=== PATIENT | female | born 1950 | race Caucasian/White ===

== ENCOUNTER 2023-12-20 11:28 | Inpatient (IN) | payer OTHER, SELFPAY ==
[2023-12-20] VITALS (7 sets, daily range): BP systolic 94–156; BP diastolic 56–73; BMI 31.5
--- NOTE | 2023-12-20 13:01 | HPS.HSE ---
Family Physician
-
Family Physician: Ashley Monsalve
Chief Complaint
-
infected pacer
History of Present Illness
73-year-old with past medical history for hyperlipidemia, diabetes, hypertension CAD, [place], V. tach due to us with infected pacer pocket. Patient had initial defibrillator placed in 2002. Her defibrillator battery was changed on . The
following day, she noted pus on her incision. Patient got admitted to [facility] since Tuesday due to worsening erythema, drainage and tenderness. Blood culture with no growth at [place]. Wound culture grew Proteus. Patient was
evaluated by infectious disease. Patient was getting vancomycin and Zosyn. Patient needed generator lead extraction for which patient got transferred to [facility] in hospital. Patient denied any fever, chills, headache, dizziness, syncopal episode.
Patient denied chest pain or short of breath. Patient denied abdominal pain, nausea, vomiting, diarrhea. Patient denied dysuria hematuria.
Medical History
Past Medical History
Past Medical History: Reports Other
Additional Past Medical History:
Ulcerative colitis
Bulging disc
Hyperlipidemia
Type 2 diabetes
Hypertension
CAD/[place]
Ventricular tachycardia
Past Surgical History: Reports Other
Additional Past Surgical History:
Defibrillator in place
Cardiac stent
Cataract surgery
Tonsillectomy
[place] tooth extraction
Right shoulder replacement
Cholecystectomy
Bowel resection
Hysterectomy
Social History
Tobacco: Non-smoker
Alcohol: None
Family History
Family History: Not pertinent
Allergies / Home Medications
Allergies reflects when Allergies were last updated in [employer].
Home Medications with original date entered in [employer]
Allergy/Medication List:
Allergies
Allergy/AdvReac Type Severity Reaction Status Date / Time
levofloxacin [From Levaquin] Allergy Tongue Verified 12/20/23 11:59
Swelling
Home Medications
atorvastatin 80 mg tablet 80 mg PO DAILY 12/20/23
carvedilol 12.5 mg tablet (Coreg) 12.5 mg PO BID 12/20/23
clopidogrel 75 mg tablet (Plavix) 75 mg PO DAILY 12/20/23
duloxetine 30 mg capsule,delayed release 30 mg PO DAILY 12/20/23
empagliflozin 25 mg tablet (Jardiance) 25 mg PO DAILY 12/20/23
famotidine 20 mg tablet 20 mg PO DAILY 12/20/23
hydralazine 25 mg tablet 25 mg PO BID 12/20/23
levothyroxine 175 mcg tablet (Synthroid) 175 mcg PO DAILY 12/20/23
metformin 1,000 mg tablet 1,000 mg PO BID 12/20/23
Review of Systems
-
Constitutional: Reports No Symptoms
EENT: Reports No Symptoms
Respiratory: Reports No Symptoms
Cardiac: Reports No Symptoms
Abdomen/GI: Reports No Symptoms
: Reports No Symptoms
Musculoskeletal: Reports No Symptoms
Skin: Reports Other (Incision with erythema)
Neurological: Reports No Symptoms
Endocrine: Reports No Symptoms
Hematologic/Lymphatic: Reports No Symptoms
Psych: Reports No Symptoms
Physical Exam
Vital Signs
Vital Signs
Temp Pulse Resp BP Pulse Ox
97.5 F 74 16 94/56 93
12/20/23 11:32 12/20/23 12:30 12/20/23 11:32 12/20/23 11:37 12/20/23 11:32
Physical Exam
General: Well Developed, Well Nourished and No Apparent Distress
HEENT: NormoCephalic, Moist mucous membranes and Atraumatic
Respiratory: Clear
Cardiac: S1/S2 and Regular Rhythm; No Murmur or Rub
GI: Soft, Non Tender, Non Distended and Normal Bowel Sounds; No Organomegaly
Rectal: Deferred by Provider
Musculoskeletal: No Clubbing, No Cyanosis and No Edema
Skin: Rash and Other (Left-sided incision red)
Neuro: AO x 3 and Nonfocal/grossly intact
Psych: Calm
Impression/Plan
-
# Infected pacer pocket
-For possible washout today
-Patient will will need lead extraction
-IV Ancef once prior to procedure
-Antibiotics deferred to ID
-ID/cardiology consulted
-Tylenol as needed for pain and fever
# History of CAD/[place]
-Status post cardiac stent
-Hold Plavix
# Type 2 diabetes
-Jardiance continued
-Hold metformin
-Sliding scale
# Depression/anxiety
-Duloxetine continued
# Hyperlipidemia
-Statin continued
# Essential hypertension
-coreg continued
-Hydralazine continued wit hold parameters
# Hypothyroidism
-Synthroid continued
# GERD
-PPI continued
# DVT prophylaxis
-SCD
# CODE STATUS
-Full code
--- NOTE | 2023-12-20 13:30 | PTCARENOTE ---
Assumed care of pt upon tsf from [facility]. Pt arrives with ambulance squad. VSS, CM shows NSR 70-80's with occ PVC's, POX 93% on RA. Pt is alert, and Ox3. Left sided chest incision appears swollen and pink. Awaiting futher orders.
--- NOTE | 2023-12-20 13:36 | W.PN.UPDATE ---
Update Note
Progress Note Update
I saw and examined the patient.
The CUSTOMER SERVICE CONSULTANT or PA's note was reviewed and I agree with the note.
Comment: 73-year-old female transferred here from [facility] for ICD pocket infection requiring extraction. Currently denies chest pain or shortness of breath.
94/56, 74, 16, 97.5 �F, 93% RA
NAD, awake and alert
RRR, normal S1/S2
CTAB
CN2-12 intact
Infected ICD pocket:
-for extraction today as per pt
-cont Vanco/Zosyn for now
-WCx at OSH with Proteus, BCxs NG
-ID c/s
-cards to see
--- NOTE | 2023-12-20 14:15 | PTCARENOTE ---
Orders received. Pt is a very hard stick, multiple attempts made which were unsuccessful. Pt taken to [facility] for further treatment.
--- NOTE | 2023-12-20 14:27 | CON.ID ---
Consultation
-
Date/Time Consultation Requested: 12/20/2023 1253
Date/Time Consultation Performed: 12/20/2023 1430
Requesting Provider: Dr. Chang Bashir
Performing Provider: Dr. Ann Euceda
Reason for Consultation: Infected ICD pocket
Chief Complaint / Past History
Chief Complaint
Infected ICD
History of Present Illness
Outside medical records reviewed. 73 year old female with history of diabetes mellitus, CAD, ICM, ICD placement who had ICD/generator battery replacement on 11/24/23. On December 14, she noted the ICD site was red and itching. The next day pus started
draining. She was admitted to [facility] on December 15. CT chest showed left chest wall battery generator with fluid and air compatible with abscess. She was started on vancomycin and Zosyn. Blood cultures x 2 were negative. Wound culture grew
Proteus. ID narrowed the Zosyn to ceftriaxone. Patient was then transferred to [facility] today and underwent ICD generator extraction. She received cefazolin preop. She just returned from surgery. Denies fever or chills. No other
symptoms.
Past History
Additional Past Medical History:
Diabetes mellitus type 2
Hypertension
CAD status post stent
Ischemic cardiomyopathy status post AICD placement (2002)
Ulcerative colitis on mesalamine
Hypothyroidism
Asthma
PMR
Herniated disc
Depression/anxiety
Perforated diverticulitis status post partial bowel resection 2004
Left knee replacement 2011
Right shoulder replacement 2012
Cholecystectomy
Hysterectomy
Allergy History:
levofloxacin [From Levaquin] Allergy (Verified 12/20/23 11:59)
Tongue Swelling
Medications Reviewed: Yes
Current Antibiotics:
Cefazolin x 1
Vanco/Zosyn at outside hospital
Social History
Tobacco: Former Smoker
Alcohol: None
Drug: None
Personal:
Family History
Family History: Not Pertinent
Review of Systems
Review of Systems
General: Negative Fever, Chills or Change in Appetite
Respiratory: Negative Dyspnea or Cough
Gasteroenterology: Negative Nausea or Vomiting
Genital / Urological: Negative Dysuria or Flank Pain
Neurological: Negative Headache or Dizziness
All systems: All other systems were reviewed and were negative
Vital Signs
Temp Pulse Resp BP Pulse Ox
97.5 F 74 16 94/56 93
12/20/23 11:32 12/20/23 12:30 12/20/23 11:32 12/20/23 11:37 12/20/23 11:32
Physical Exam
Physical Exam
Constitutional: No Acute Distress
Cardiovascular: Regular Rate and S1/S2
Pulmonary: Clear
Gastrointestinal: Soft, Non Tender and Non Distended
Extremities: Negative Edema
Wound: Other (left chest wall - post-op dressing in place)
Microbiology Results
Micro:
12/20/23 13:09 MRSA Screen - Pending
Nose
Assessment / Plan
# ICD pocket SSTI after recent generator change (11/24/23)
- Outside blood cx's x 2 neg (12/15)
-Outside wound cx Proteus mirabilis (I) cefazolin; (S) ampicillin, ceftriaxone, cefepime, zosyn, cipro, t/sulfa
- 12/20/23 s/p ICD generator extraction, placement of new generator at separate site. Leads are retained.
- Await OR cx's
- Start cefepime pending OR cx result
- Place midline.
--- NOTE | 2023-12-20 16:02 | CON.CAR ---
Consultation
Consultation Request
Date/Time Consultation Requested: 12/20/23
Date/Time Consultation Performed: 12/20/23
Reason for Consultation: Pocket infection
Medical History
-
Chief Complaint: Pocket infection
History of Present Illness:
73-year-old woman with chronic heart failure status post single-chamber ICD 2002 ([employer], status post generator change in 2010 and secondary to change in November 2023 (Dr. Ro at [facility]), coronary disease status post PCI with CHERELLE to LAD in
February 2016, PCI to RCA with stent in December 2016, inflammatory bowel disease (ulcerative colitis), PMR, history of DVT after cholecystectomy, asthma, hypothyroidism, capsulitis, history of partial bowel resection with perforated diverticulitis in 2004
who presented with her pocket infection and pus coming from the pocket.
Patient had her generator changed in November 24, 2023 that went uneventful. Unfortunately she started having erythema in the pocket incision and started expressing pus from the incision. Patient was treated with Zosyn and vancomycin. Patient
reported that the pus coming out of the pocket improved and she was discharged home. She was continued to have erythema and swelling from the pocket and was admitted again on 12/17/2023 with pocket infection. With continued infection of the pocket,
patient was transferred to us for pocket revision, incision and drainage and debridement with relocation of the pocket. Given her infected pocket, she most likely need an extraction and was sent was for extraction of her system as well.
Patient is not dependent. Currently ICD was interrogated and is at VVI 50 and 3 therapy zones identified.
Patient herself is reporting swelling and pain in the incision site. She is unhappy with the way incision looks.
Past Medical History
Past Medical History: Asthma, CAD, CHF, HTN, Hypercholesterolemia, NIDDM, Renal Failure (CKD) and Other (Ulcerative colitis, DJD, PMR, DVT after cholecystectomy, lumbar degenerative disc disease,)
Past Surgical History: Cardiac (Drug-eluting stent to LAD February 2016 at [facility], CHERELLE to RCA at [facility] December 2016, AICD in 2002, generator change 2010 at [facility], generator change at [facility] in November 2023.), Gynecological
(D&C in 1971, 1979 and hysterectomy 1988,) and Other ( Partial bowel resection with perforated diverticulitis in 2004, cholecystectomy with 2 herniorrhaphies in December 2017)
Social History
Tobacco: Former Smoker (1 pack/day for 30 years quit 2002)
Alcohol: None
Family History
Family History: Reviewed & Not Pertinent
Allergies / Home Medications
Allergy/AdvReac Type Severity Reaction Status Date / Time
levofloxacin [From Levaquin] Allergy Tongue Verified 12/20/23 11:59
Swelling
�Medication �Instructions �Recorded �Confirmed �Type
atorvastatin 80 mg tablet 80 mg PO DAILY 12/20/23 12/20/23 History
carvedilol 12.5 mg tablet (Coreg) 12.5 mg PO BID 12/20/23 12/20/23 History
clopidogrel 75 mg tablet (Plavix) 75 mg PO DAILY 12/20/23 12/20/23 History
duloxetine 30 mg capsule,delayed 30 mg PO DAILY 12/20/23 12/20/23 History
release
empagliflozin 25 mg tablet 25 mg PO DAILY 12/20/23 12/20/23 History
(Jardiance)
famotidine 20 mg tablet 20 mg PO DAILY 12/20/23 12/20/23 History
hydralazine 25 mg tablet 25 mg PO BID 12/20/23 12/20/23 History
levothyroxine 175 mcg tablet 175 mcg PO DAILY 12/20/23 12/20/23 History
(Synthroid)
metformin 1,000 mg tablet 1,000 mg PO BID 12/20/23 12/20/23 History
Review of Systems
-
All other systems: Negative unless noted
Physical Exam
Vital Signs
Temp Pulse Resp BP Pulse Ox
97.5 F 74 16 94/56 93
12/20/23 11:32 12/20/23 12:30 12/20/23 11:32 12/20/23 11:37 12/20/23 11:32
Physical Exam
General: Well Developed, Well Nourished, No Apparent Distress and Comfortable
HEENT: Normocephalic and Moist Mucous Membranes
Respiratory: Clear and Non Labored Respirations
Cardiac: S1/S2 and Regular Rhythm; Negative Peripheral Edema
GI: Soft, Non Tender, Non Distended and Normal Bowel Sounds
Musculoskeletal: No Clubbing, No Cyanosis and No Edema
Skin: Warm and Other (ICD pocket is inflamed and erythematous. An area of dehiscence noted in the incision with expression of pus.)
Neuro: Awake, Alert, Oriented and AO x 3
Psych: Calm
Impression / Plan
-
73-year-old woman with chronic heart failure status post single-chamber ICD 2002 ([employer], status post generator change in 2010 and secondary to change in November 2023 (Dr. Ro at [facility]), coronary disease status post PCI with CHERELLE to LAD in
February 2016, PCI to RCA with stent in December 2016, inflammatory bowel disease (ulcerative colitis), PMR, history of DVT after cholecystectomy, asthma, hypothyroidism, capsulitis, history of partial bowel resection with perforated diverticulitis in 2004
who presented with her pocket infection and pus coming from the pocket.
Pocket infection
-Treated with Zosyn and vancomycin.
-Pus can be expressed from the pocket
-Wound dehiscence noted.
-Treat with antibiotics likely with vancomycin and Ancef
-Consult infectious disease
-Plan for pocket revision, debridement, washout, relocation of the pocket after maximal attempt of sterilization of the wire and generator
-Procedure explained in detail to the patient. Consent obtained
-Given patient's significant comorbidities, we will try to use conservative measures to avoid lead extraction
-Likely 4 to 6 weeks of antibiotics. Potentially Keflex versus clindamycin (patient is allergic to Bactrim and sulfa drugs)
-Obtain cultures from the pocket.
-If fever, leukocytosis noted will obtain systemic blood cultures as well.
Heart failure
-Primary prevention ICD in place
-Obtain echocardiogram.
-Look for any obvious vegetations.
-Last echo at our hospital 09/01/22: LVEF 30%, moderate MR
-Currently on Coreg, Jardiance, hydralazine,
Coronary artery disease
-On Plavix
Data Reviewed
-
EKG: Tracing Personally Visualized and interpreted
Radiology: Report Reviewed by me
CT Scan: Report Reviewed by me
Labs: Labs Reviewed by me
Old Records: Reviewed
Critical Care Time (in minutes): 35
[2023-12-20 16:44] LABS: Hematocrit 36.5 % (37.0-47.0); Hemoglobin 11.8 g/dL (12.0-16.0); Mean Corp Hgb Conc. 32.3 g/dL (33.0-37.0); Mean Corpuscular Hgb 33.1 pg (27.0-31.0); Mean Corpuscular Volume 102.5 fL (81.0-99.0); Mean Platelet Volume 9.7 fL (7.4-10.4); Platelet Count 158 10^3/uL (130-400); Red Blood Cell Count 3.56 10^6/uL (4.20-5.40); Red Cell Dist. Width 13.7 % (11.5-14.5); White Blood Cell Count 6.4 10^3/uL (4.8-10.8)
[2023-12-20 16:47] LABS: Glucose - Point of Care 130 mg/dl (70-99)
--- NOTE | 2023-12-20 16:48 | ITS.CL.PN ---
Senior Audit Manager - Procedure Note
Procedure
Procedure Note:
Pocket Revision, debridement and relocation of Implantable Cardioverter Defibrillator:
Ms. Ro is a 73 yrs old woman with chronic systolic heart failure s/p single chamber ICD placement ([employer] � 2002) s/p gen change in 2010 and 2023 with coronary artery disease, cardiomyopathy, diabetes, moderate MR with ejection
fraction 30-35% who was recently hospitalized with abscess at the ICD pocket site.
Indications: Abscess at ICD site.
Date of the Procedure: 12/20/23
Pre-Operative Diagnosis: chronic systolic heart failure with pocket infection
Post-Operative Diagnosis: chronic systolic heart failure with pocket infection
Procedure Performed: Pocket revision, relocation and washout of the previous pocket
Performing Physician:
Gokul Costa MD
Anesthesia:
See anesthesia records
Detailed Description of the Procedure:
The patient was identified using hospital identification and informed consent obtained for the procedure. The risks were explained including, but not limited to: Bleeding, infection, arrhythmia, stroke, vascular/cardiac/lung puncture, surgery,
pacemaker dependency/device malfunction. All questions were answered.
The patient was brought to the electrophysiology laboratory in stable condition in fasting state. Continuous electrocardiographic and hemodynamic monitoring was initiated. The initial rhythm was sinus rhythm.
The Device was interrogated. The tachy therapies were turned off and remained off throughout the case. The therapies were turned on at the end of the case.
The procedure site was meticulously prepared with surgical scrub and allowed to dry with no pooling. Sterile draping was applied to cover the procedure site. The image intensifier was draped with sterile bag and positioned over the patient.
The left infraclavicular region was prepped and draped in the usual sterile fashion. Local anesthesia was administered subcutaneously using 1% lidocaine / Bupivacaine. Using the prior incision, the skin was incised again and the debris and the prior
sutures were removed. There were skin breakdown on the incision site. The abscess in the superficial skin was incised and angelo pus was noted. The area was drained and the superficial cultures obtained.
The incision was made deeper and the angelo pus was noted coming from the pocket. The aerobic and anaerobic cultures were again obtained from the deep pocket area.
There was frail tissue infected and was oozing blood and pus. The generator was removed from the pocket and the deep pocket and generator was also cultures.
The device and the leads were cleaned with Betadine solution and rubbed to the foam and let dry. The deep pocket and the tissue around the leads were also cleaned with Betadine. A Betadine soaked Kerlex was packed for debridement in the pocket and
later removed to clean the pocket.
A diluted hydrogen peroxide solution was poured into the pocket and the surrounding infected tissues and the device generator and the leads were rubbed cleaned and the foam was cleaned with towels and the wound was then rinsed with antibiotics
solution.
All the infected material was removed.
Once the pocket was cleaned, another pocket was created after local anesthesia. The new pocket was more medial to the previous pocket. The new pocket was irrigated and washed with antibiotics solution. The cleaned generator and the wire was placed
in the new pocket. The Pocket was closed using 2-0 V Loc suture to separate it from the infected pocket.
There was oozing of pus and blood in the pocket with fragile surrounding tissue. A KATHY drain was placed in th pocket and the skin was closed using a 2-0 V loc suture.
Procedure End:
The procedure was tolerated well. A pressure bandage was applied to the incision area.
Estimated Blood loss:
15 cc
Specimens Removed:
Cultures obtained. Infected pocket with angelo pus in the superficial skin communicating into the deep pocket. .
Urine output:
None
Packs / Drains/ Tubes:
None
Instrument / Sponge Count Correct:
Yes
Complications of the Procedure:
None
Condition of Patient at Time of Transfer:
Hemodynamically stable with no neurological or vascular compromise.
Summary:
s/p pocket revision and incision and drainage with debridement with angelo infection of the ICD pocket, relocation of the pocket to a new site.
Results/Recommendations:
-��������� Antibiotics
-��������� Infection disease consult
-��������� KATHY drain to keep at least a week.
-��������� Replace / empty the bulb of drain if becomes full.
-���������
Gokul Costa MD
Electrophysiology
[2023-12-20 16:57] LABS: ALT (SGPT) 13 U/L (0-35); AST (SGOT) 28 U/L (14-36); Albumin 3.5 g/dl (3.5-5.0); Alkaline Phosphatase 99 U/L (38-126); Blood Urea Nitrogen 12 mg/dl (7-17); Calcium 9.2 mg/dl (8.4-10.2); Carbon Dioxide 24 mmol/L (22-30); Chloride 106 mmol/L (98-107); Estimated Creatinine Clearance 55 ml/min; Glucose 112 mg/dl (70-99); Potassium 4.2 mmol/L (3.5-5.1); Sodium 139 mmol/L (135-145); Total Bilirubin 0.4 mg/dl (0.2-1.3); Total Protein 6.5 g/dl (6.3-8.2); eGFR > 60.00
[2023-12-20] MEDS: NOVOLOG FLEXPEN-LOW RESISTANCE SC (17:10)
[2023-12-20 17:50] LABS: Hepatitis C Antibody Negative (Negative)
--- NOTE | 2023-12-20 17:57 | PTCARENOTE ---
Assumed care of pt upon tsf from [facility] post left pocket revision, debridement and relocation of ICD. Pt arrives awake but sleepy. Large Tegaderm dsg to left chest site with J-P extending from incision. Mid-line inserted as ordered by IV team. Pt
denies any pain or discomfort at this time.
[2023-12-20] MEDS: APRESOLINE 25 MG PO (20:39)
[2023-12-20] MEDS: COREG 12.5 MG PO (20:39)
--- NOTE | 2023-12-20 21:17 | PTCARENOTE ---
During assessment of pt's post-op KATHY drain at the L chest wall incision site, KATHY drain noted to not staying compressed or holding suction. Original post op dressing w/serosanguineous drainage present under the silk tape & gauze pressure dressing.
10mLs of sanguineous drainage removed from drain & this RN attempted to recompress x2. CT Surgery PA, Ed Roderick notified & in to see pt. Dressing & insertion site assessed. KATHY bulb replaced bt PA & drain continues to not hold compression. Dressing
and tape reinforced. Pt w/no c/o pain or discomfort at the site. Plan of care ongoing.
[2023-12-20 21:45] LABS: Glucose - Point of Care 246 mg/dl (70-99)
[2023-12-20] MEDS: MAXIPIME 2000 MG IV (22:42)
[2023-12-20] MEDS: FLUSH (NSS) 2 FLUSH IV (22:42)
[2023-12-20] MEDS: STERILE WATER FOR INJECTION 10 ML IV (22:42)
[2023-12-20] MEDS: TYLENOL 650 MG PO (22:49)
[2023-12-21] VITALS (7 sets, daily range): BP systolic 88–129; BP diastolic 53–83
--- NOTE | 2023-12-21 03:13 | DOWNTIME ---
There was a [employer] Downtime on 12/20/2023 from 0100 to 12/21/2023 at 0300. Downtime documentation of patient's care, including medication administrations, has been reconciled in the electronic record per guidelines. Refer to the
patient's paper chart under the miscellaneous tab to see printed paper medication records and downtime forms.
[2023-12-21] MEDS: SYNTHROID 175 MCG PO (05:11)
[2023-12-21 05:37] LABS: Hemoglobin 11.8 g/dL (12.0-16.0); Mean Corp Hgb Conc. 31.1 g/dL (33.0-37.0); Mean Corpuscular Hgb 33.2 pg (27.0-31.0); Mean Platelet Volume 10.1 fL (7.4-10.4); Platelet Count 144 10^3/uL (130-400); Red Blood Cell Count 3.55 10^6/uL (4.20-5.40); Red Cell Dist. Width 13.5 % (11.5-14.5)
[2023-12-21 06:04] LABS: Blood Urea Nitrogen 21 mg/dl (7-17); Calcium 9.5 mg/dl (8.4-10.2); Carbon Dioxide 24 mmol/L (22-30); Chloride 105 mmol/L (98-107); Estimated Creatinine Clearance 41 ml/min; Glucose 168 mg/dl (70-99); Potassium 4.4 mmol/L (3.5-5.1); Sodium 140 mmol/L (135-145); eGFR 48.09
[2023-12-21 07:11] LABS: Glucose - Point of Care 144 mg/dl (70-99)
--- NOTE | 2023-12-21 07:59 | W.PN.HOSP.TC ---
Today's Communication/Plan
-
see bold
Assessment / Plan
Assessment / Plan
Gen: NAD, AAOx3.
Eyes: EOMI, PERRLA, no scleral icterus.
Neck: supple.
CV: RRR, +S1/S2, no m/r/g.
Resp: CTAB, no rales, wheezes, or rhonchi.
Abd: +BS, soft, NT, ND
Skin: No rashes.
Neuro: CN 2-12 intact, non-focal.
Psych: Normal mood and affect.
Infected ICD pocket:
-s/p pocket revision, relocation, and washout of previous pocket on 12/20/23
-cont Cefepime
-follow WCx
HAMLET, mild, OK to simply trend Cr for now, encourage adequate fluid intake
Other problems:
CAD with h/o NE and stent: cont BB/statin
DM2: cont Jardiance, SSI/accuchecks
Depression/anxiety: cont Duloxetine
Hyperlipidemia: cont statin
Essential hypertension: cont Coreg/Hydralazine
Hypothyroidism: cont Synthroid
GERD: cont PPI
Obesity due to excess calories: Affects all aspects of care. Encourage weight loss.
FULL/SCD
Anticipated Discharge: 24 - 48 hours
Subjective/Interval History
-
Date of Service: December 21, 2023
Pt denies CP/SOB.
Objective Data
-
Labs:
Laboratory Results
12/21/23
05:23
WBC 5.0
Hgb 11.8 L
Hct 38.0
Plt Count 144
Sodium 140
Potassium 4.4
Chloride 105
Carbon Dioxide 24
BUN 21 H
Creatinine 1.2 H
Glucose 168 H
Calcium 9.5
Vital Signs:
Vital Signs
Temp Pulse Resp BP Pulse Ox
97.9 F 85 20 107/83 93
12/21/23 07:04 12/21/23 05:00 12/21/23 07:04 12/21/23 04:57 12/21/23 07:04
I&O
12/20/23 12/21/23 12/22/23
06:59 06:59 06:59
Intake Total 960 / 960
Output Total
Balance 940 / 940
[2023-12-21] MEDS: NOVOLOG FLEXPEN-LOW RESISTANCE SC ×2 (08:16→15:23)
[2023-12-21] MEDS: APRESOLINE 25 MG PO ×2 (08:19→19:34)
[2023-12-21] MEDS: JARDIANCE 25 MG PO (08:20)
[2023-12-21] MEDS: COREG 12.5 MG PO ×2 (08:20→19:34)
[2023-12-21] MEDS: PEPCID 20 MG PO (08:25)
[2023-12-21] MEDS: CYMBALTA DELAYED RELEASE 30 MG PO (08:25)
--- NOTE | 2023-12-21 08:25 | W.PN.CD ---
Today's Communication / Plan
-
- Dressing changed from the pocket
- Minimal drainage after the initial high drain from the pocket.
- Continue antibiotics.
- Outpatient regimen
- ECHO today
Impression / Plan
-
73-year-old woman with chronic heart failure status post single-chamber ICD 2002 ([employer], status post generator change in 2010 and secondary to change in November 2023 (Dr. Ro at [facility]), coronary disease status post PCI with CHERELLE to LAD in
February 2016, PCI to RCA with stent in December 2016, inflammatory bowel disease (ulcerative colitis), PMR, history of DVT after cholecystectomy, asthma, hypothyroidism, capsulitis, history of partial bowel resection with perforated diverticulitis in 2004
who presented with her pocket infection and pus coming from the pocket.
Pocket infection
-Pus in the pocket - copious amount.
- s/p drained, washout, debridement, relocation of the ICD generator.
-Treated with Zosyn and vancomycin - now on Cefepime as per ID
-Outpatient antibiotics choice - pending
-s/p pocket revision, debridement, washout, relocation of the pocket after maximal attempt of sterilization of the wire and generator 12/20/23
-Cx obtained from the pocket - s/p treated with antibiotics - low yield
Heart failure
-Primary prevention ICD in place
-Obtain echocardiogram.
-Look for any obvious vegetations.
-Last echo at our hospital 09/01/22: LVEF 30%, moderate MR
-Currently on Coreg, Jardiance, hydralazine
-Did not tolerate ACEI. on hold with infection. Can retry once BP stable.
Coronary artery disease
-On Plavix, Coreg and Lipitor
DM
-Insulin for tighter glucose control at least while in patient
Physical Exam
Vital Signs/Labs
Vital Signs
Temp Pulse Resp BP Pulse Ox
97.9 F 76 20 113/54 93
12/21/23 07:04 12/21/23 08:19 12/21/23 07:04 12/21/23 08:19 12/21/23 07:04
12/20/23 12/21/23 12/22/23
06:59 06:59 06:59
Actual Weight 78 kg
12/21/23 05:23
12/21/23 05:23
Physical Exam
Constitutional: No acute distress and Comfortable
EENT: Anicteric and Moist mucous membranes
Cardiovascular: Rhythm & rate is regular, Pedal edema is absent, JVD pressure is normal and Systolic murmur present
Respiratory: Respiratory effort normal, Wheeze Absent and Crackles Absent
GI: Soft, Non tender and Normal bowel sounds
Neuro/Psych: Alert, Oriented and AO x 3
Other: Cardiac Device Site
Data Reviewed
-
Date of Service: December 21, 2023
Medical Decision Making: Reviewed Test Results, Test Interpretation and Review of Case with other Provider
EKG: Tracing Personally Visualized and interpreted
Echo: Report Reviewed by me
Labs: Labs Reviewed by me
Old Records: Reviewed
--- NOTE | 2023-12-21 08:30 | PTCARENOTE ---
KATHY drain unable to be reconstituted as immediate expansion of bulb noted. KATHY drain continues to drain serosanguineous fluid. Pt c/o tenderness at site. Meds as ordered. Will monitor.
[2023-12-21] MEDS: STERILE WATER FOR INJECTION 10 ML IV ×2 (09:29→22:40)
[2023-12-21] MEDS: MAXIPIME 2000 MG IV ×2 (09:29→22:40)
[2023-12-21 10:41] LABS: Glycohemoglobin (HgbA1c) 6.6 % (4.0-5.6)
--- NOTE | 2023-12-21 11:51 | CM ---
CM following for DC planning needs.
Met w/ patient at bedside to complete initial assessment.
Pt. resides in a private, 1 story home w/ spouse, dtr. and adult granddtr. Pt. is functionally indep. w/ ADLs, mobility without the use of any assisted device.
Pt. has RX plan and uses [facility] for prescription needs.
Pt. is hopeful for DC soon and does not anticipate any DC needs.
CM to follow.
--- NOTE | 2023-12-21 13:07 | W.PN.ID1 ---
Date of Service
Date of Service: December 21, 2023
Today's Communication
See below.
Assessment / Plan
# ICD pocket SSTI after recent generator change (11/24/23) at [facility]
- Outside blood cx's x 2 neg (12/15)
-Outside wound cx Proteus mirabilis (I) cefazolin; (S) ampicillin, ceftriaxone, cefepime, zosyn, cipro, t/sulfa
- 12/20/23 s/p ICD generator extraction, pocket I+D, placement of same generator cleaned with betadine at separate site. Leads are retained.
- Await OR cx's: neg to date
- Await TTE
- Continue cefepime pending OR cx result
- IF OR cx negative, will narrow cefepime to ceftriaxone 2g IV q24 to target the previous Proteus.
(Of note, pt with levofloxacin and sulf allergy, limited oral abx option)
- Length of tx for ICD pocket infection is 2 weeks. However, since the same infected generator was cleaned with betadine reused and leads retained, will be more conservative and extend IV abx to 4 weeks then observe closely for relapse. If
relapse, total extraction recommended.
#Additional Past Medical History:
Diabetes mellitus type 2
Hypertension
CAD status post stent
Ischemic cardiomyopathy status post AICD placement (2002)
Ulcerative colitis on mesalamine
Hypothyroidism
Asthma
PMR
Herniated disc
Depression/anxiety
Perforated diverticulitis status post partial bowel resection 2004
Left knee replacement 2011
Right shoulder replacement 2012
Cholecystectomy
Hysterectomy
Chief Complaint
-: Other (ICD infection)
Subjective / Review of Systems
Asking when she can go home. Some post-op pain.
Vital Signs / Physical Exam
Vital Signs
Vital Signs
Temp Pulse Resp BP Pulse Ox
98.1 F 75 20 129/68 95
12/21/23 10:56 12/21/23 12:45 12/21/23 10:56 12/21/23 10:56 12/21/23 10:56
Physical Exam
Constitutional: No Acute Distress and Comfortable
Cardiovascular: Regular Rate and S1/S2
Pulmonary: Clear
Gastrointestinal: Soft, Non Tender and Non Distended
Wound: Other (Left chest dressing intact; KATHY drain small amt of blood)
Neurological: AO x 3
Lines: Other (RUE midline intact)
Objective Data
Lab Data
Lab Results
12/21/23 05:23
12/21/23 05:23
Estimated Creat Clear 41 ml/min 12/21/23 05:23
Total Bilirubin 0.4 mg/dl (0.2-1.3) 12/20/23 16:32
AST 28 U/L (14-36) 12/20/23 16:32
ALT 13 U/L (0-35) 12/20/23 16:32
Alkaline Phosphatase 99 U/L (38-126) 12/20/23 16:32
Most recent labs reviewed.
Micro Results:
12/20/23 14:50 Anaerobic Culture - Preliminary
Chest - Left Culture pending. Anaerobic cultures are examined after 3
days incubation. Additional information to follow.
12/20/23 14:50 Wound Culture - Preliminary
Chest - Left No growth
Gram Stain - Preliminary
12/20/23 13:09 MRSA Screen - Pending
Nose
[2023-12-21 13:15] LABS: Glucose - Point of Care 167 mg/dl (70-99)
[2023-12-21] MEDS: TYLENOL 650 MG PO ×2 (13:29→18:38)
[2023-12-21 17:10] LABS: Glucose - Point of Care 177 mg/dl (70-99)
[2023-12-21] MEDS: NOVOLOG FLEXPEN-LOW RESISTANCE 1 UNITS SC (18:08)
--- NOTE | 2023-12-21 18:16 | PTCARENOTE ---
Left ACW dressing reinforced due to drainage noted on pt's gown. Moderate amount of serosanguineous drainage noted on pt's gown. KATHY drain emptied for 8 ml of serosanguineous drainage. Will monitor.
[2023-12-21 22:54] LABS: Glucose - Point of Care 214 mg/dl (70-99)
--- NOTE | 2023-12-22 02:11 | PTCARENOTE ---
Tele remains SR w/ occasional PVCs, HR in the 70-90's at rest. VSS. Denies any pain. Left anterior chest dressing remains intact, no drainage noted at this time. KATHY draining serosanguineous fluid. KATHY drain is unable to remain compressed. KATHY
assessment unchanged from previous day shift assessment. Call latham in reach, pt can make needs known.
[2023-12-22 04:55] VITALS: BP 115/58
[2023-12-22 04:57] VITALS: BMI 32.3
[2023-12-22] MEDS: SYNTHROID 175 MCG PO (05:13)
[2023-12-22 05:25] LABS: Hematocrit 35.9 % (37.0-47.0); Hemoglobin 11.4 g/dL (12.0-16.0); Mean Corp Hgb Conc. 31.8 g/dL (33.0-37.0); Mean Corpuscular Hgb 33.6 pg (27.0-31.0); Mean Corpuscular Volume 105.9 fL (81.0-99.0); Mean Platelet Volume 9.9 fL (7.4-10.4); Platelet Count 152 10^3/uL (130-400); Red Blood Cell Count 3.39 10^6/uL (4.20-5.40); Red Cell Dist. Width 13.8 % (11.5-14.5); White Blood Cell Count 6.2 10^3/uL (4.8-10.8)
[2023-12-22 06:04] LABS: Blood Urea Nitrogen 25 mg/dl (7-17); Calcium 9.4 mg/dl (8.4-10.2); Carbon Dioxide 25 mmol/L (22-30); Chloride 106 mmol/L (98-107); Estimated Creatinine Clearance 42 ml/min; Glucose 133 mg/dl (70-99); Potassium 4.5 mmol/L (3.5-5.1); Sodium 140 mmol/L (135-145); eGFR 48.09
[2023-12-22 07:01] VITALS: BP 127/62
[2023-12-22 07:05] LABS: Glucose - Point of Care 118 mg/dl (70-99)
[2023-12-22 07:58] VITALS: BMI 32.3
--- NOTE | 2023-12-22 08:10 | W.PN.CD ---
Addendum entered and electronically signed by Todd Roberson MD 12/22/23 10:07:
f/u appt with Dr Costa: December 27 at 12:00 pm.
Original Note:
Today's Communication / Plan
-
Steri strips to be placed prior to discharge
Follow up for drain removal 1 week
Cont outpatient medications, further GDMT titration and initiation once stable
Impression / Plan
-
73-year-old woman with chronic heart failure status post single-chamber ICD 2002 ([employer], status post generator change in 2010 and secondary to change in November 2023 (Dr. Ro at [facility]), coronary disease status post PCI with CHERELLE to LAD in
February 2016, PCI to RCA with stent in December 2016, inflammatory bowel disease (ulcerative colitis), PMR, history of DVT after cholecystectomy, asthma, hypothyroidism, capsulitis, history of partial bowel resection with perforated diverticulitis in 2004
who presented with her pocket infection and pus coming from the pocket.
Pocket infection
-Pus in the pocket - copious amount.
- s/p drained, washout, debridement, relocation of the ICD generator.
-Treated with Zosyn and vancomycin - now on Cefepime as per ID
-Outpatient antibiotics choice - pending
-s/p pocket revision, debridement, washout, relocation of the pocket after maximal attempt of sterilization of the wire and generator 12/20/23
-Cx obtained from the pocket - s/p treated with antibiotics - low yield
Heart failure
-Primary prevention ICD in place
-Obtain echocardiogram.
-Look for any obvious vegetations.
-Last echo at our hospital 09/01/22: LVEF 30%, moderate MR
-Currently on Coreg, Jardiance, hydralazine
-Cont hydral will add Imdur
- once stable (outpatient) try switching to Entresto
Coronary artery disease
-On Plavix, Coreg and Lipitor
DM
-Insulin for tighter glucose control at least while in patient
Physical Exam
Vital Signs/Labs
Vital Signs
Temp Pulse Resp BP Pulse Ox
98.2 F 82 20 127/62 94
12/22/23 06:58 12/22/23 07:01 12/22/23 06:58 12/22/23 07:01 12/22/23 06:58
12/21/23 12/22/23 12/23/23
06:59 06:59 06:59
Actual Weight 171 lb 15.369 oz 176 lb 9.444 oz
12/22/23 05:00
12/22/23 05:00
Physical Exam
Constitutional: No acute distress
EENT: Anicteric
Cardiovascular: Rhythm & rate is regular, Pedal edema is absent and Other (pocket is c/d/i )
Respiratory: Respiratory effort normal and Lungs clear to auscul.
GI: Soft
Neuro/Psych: AO x 3
Data Reviewed
-
Date of Service: December 22, 2023
EKG: Tracing Personally Visualized and interpreted (sr)
Echo: Tracing Personally Visualized and interpreted and Report Reviewed by me
Labs: Labs Reviewed by me
[2023-12-22] MEDS: TYLENOL 650 MG PO (09:16)
[2023-12-22] MEDS: NOVOLOG FLEXPEN-LOW RESISTANCE SC ×2 (09:16→12:19)
[2023-12-22] MEDS: PEPCID 20 MG PO (09:17)
[2023-12-22] MEDS: JARDIANCE 25 MG PO (09:18)
[2023-12-22] MEDS: APRESOLINE 25 MG PO (09:18)
[2023-12-22] MEDS: COREG 12.5 MG PO (09:18)
--- NOTE | 2023-12-22 10:22 | W.PN.ID1 ---
Date of Service
Date of Service: December 22, 2023
Today's Communication
Ceftriaxone 2gIV q24h through 01/18/24 then observe closely.
OK for DC
Assessment / Plan
# ICD pocket SSTI after recent generator change (11/24/23) at [facility]
- Outside blood cx's x 2 neg (12/15)
-Outside wound cx Proteus mirabilis (I) cefazolin; (S) ampicillin, ceftriaxone, cefepime, zosyn, cipro, t/sulfa
- 12/20/23 s/p ICD generator extraction, pocket I+D, placement of same generator cleaned with betadine at separate site. Leads are retained.
- OR cx's: neg to date
- TTE: no growth to date
- OR cx negative, will narrow cefepime to ceftriaxone 2g IV q24 to target the previous Proteus.
(Of note, pt with levofloxacin and sulf allergy, limited oral abx option)
- Usual Length of tx for ICD pocket infection is 2 weeks. However, since the same infected generator was cleaned with betadine reused and leads retained, will be more conservative and extend IV abx to 4 weeks then observe closely for relapse.
If relapse, total extraction recommended.
- Recommend ceftriaxone 2gIV q24h through 01/18/24 then observe closely.
-Follow up with me in 2 to 3 weeks.
#Additional Past Medical History:
Diabetes mellitus type 2
Hypertension
CAD status post stent
Ischemic cardiomyopathy status post AICD placement (2002)
Ulcerative colitis on mesalamine
Hypothyroidism
Asthma
PMR
Herniated disc
Depression/anxiety
Perforated diverticulitis status post partial bowel resection 2004
Left knee replacement 2011
Right shoulder replacement 2012
Cholecystectomy
Hysterectomy
Chief Complaint
-: Other (ICD infection)
Subjective / Review of Systems
Feels well.
Vital Signs / Physical Exam
Vital Signs
Vital Signs
Temp Pulse Resp BP Pulse Ox
98.2 F 85 20 127/62 94
12/22/23 06:58 12/22/23 09:18 12/22/23 06:58 12/22/23 09:18 12/22/23 09:13
Physical Exam
Constitutional: No Acute Distress and Comfortable
Cardiovascular: Regular Rate and S1/S2
Pulmonary: Clear
Lines: Other (RUE midline no erythema)
Objective Data
Lab Data
Lab Results
12/22/23 05:00
12/22/23 05:00
Estimated Creat Clear 42 ml/min 12/22/23 05:00
Total Bilirubin 0.4 mg/dl (0.2-1.3) 12/20/23 16:32
AST 28 U/L (14-36) 12/20/23 16:32
ALT 13 U/L (0-35) 12/20/23 16:32
Alkaline Phosphatase 99 U/L (38-126) 12/20/23 16:32
Most recent labs reviewed.
Micro Results:
12/20/23 13:09 MRSA Screen - Final
Nose No Methicillin Resistant Staphylococcus aureus isolated.
12/20/23 14:50 Anaerobic Culture - Preliminary
Chest - Left Culture pending. Anaerobic cultures are examined after 3
days incubation. Additional information to follow.
12/20/23 14:50 Wound Culture - Preliminary
Chest - Left No growth
Gram Stain - Preliminary
Care Review
Plan reviewed with: Physician (Dr. Bashir)
[2023-12-22] MEDS: ROCEPHIN 2000 MG IV (10:41)
[2023-12-22] MEDS: STERILE WATER FOR INJECTION 20 ML IV (10:41)
--- NOTE | 2023-12-22 11:08 | CM ---
CM following for DC planning needs.
Plan to DC to home w/ IV ABX. Referral made to [facility]. Advised that patient has complete coverage for nursing and supplies and would incur a $17/week cost for medication copay. [facility] to also provide nursing for midline care.
I have met w/ patient to notify her of this.
Pt. has KATHY drain and will go home w/ this. Pt. feels comfortable w/ emptying this and does not need further nursing care at home for this.
Staffing Executive from [facility] to come to hospital today between 12-1 for ABT teaching.
Medication to be delivered by tonight to patient's home.
[facility] infusion nurse to visit pt. tomorrow @ home for first medication dosing.
PLAN: HOME w/ [facility] infusion
--- NOTE | 2023-12-22 11:20 | W.PN.HOSP.TC ---
Today's Communication/Plan
-
d/c
Assessment / Plan
Assessment / Plan
Gen: remains NAD, AAOx3.
Eyes: EOMI, PERRLA, no scleral icterus.
Neck: supple.
CV: remains RRR, +S1/S2, no m/r/g.
Resp: remains CTAB, no rales, wheezes, or rhonchi.
Abd: +BS, soft, NT, ND
Skin: No rashes.
Neuro: CN 2-12 intact, non-focal.
Psych: Normal mood and affect.
12/20/23 13:09 Nose MRSA Screen - Final
No Methicillin Resistant Staphylococcus aureus isolated.
12/20/23 14:50 Chest - Left Anaerobic Culture - Preliminary
Culture pending. Anaerobic cultures are examined after 3
days incubation. Additional information to follow.
12/20/23 14:50 Chest - Left Wound Culture - Preliminary
No growth
12/20/23 14:50 Chest - Left Gram Stain - Preliminary
Echo: Severely dilated LV with severely reduced systolic function.
LVEF is 20 to 25% by visual estimation.
RCA and Circumflex territory severe hypokinesis, LAD hypokinesis.
Stage II diastolic dysfunction suggestive of abnormal relaxation and increased
filling pressures.
Normal right ventricular size and function.
Mild to moderate eccentric, posteriorly directed mitral regurgitation.
Mild tricuspid regurgitation.
Estimated pulmonary artery pressure of 34 mmHg assuming a right atrial pressure
of 3 mmHg.
Compared to prior from September 01, 2022, on [id number] comparison LV function
is now severely reduced and estimated at 20 to 25% down from moderately
reduced, 30-35%, on prior.
Infected ICD pocket:
-s/p pocket revision, relocation, and washout of previous pocket on 12/20/23
-WCx NG
-was on Cefepime, now transitioned to Rocephin 2g IV daily through 01/18/24
HAMLET:
-mild, Cr stable at 1.2 (from 0.9 on admission)
Chronic HFrEF:
-echo above
-cont Coreg/Jardiance
-further GDMT at outpt
-case discussed with Dr. Roberson and he has medically cleared the pt for discharge.
Other problems:
CAD with h/o AK and stent: cont BB/statin
DM2: cont Jardiance, SSI/accuchecks
Depression/anxiety: cont Duloxetine
Hyperlipidemia: cont statin
Essential hypertension: cont Coreg/Hydralazine
Hypothyroidism: cont Synthroid
GERD: cont PPI
Obesity due to excess calories: Affects all aspects of care. Encourage weight loss.
FULL/SCD
Total time spent on d/c = 35 min. This included today's physical exam, progress note, review of laboratory and diagnostic data, preparation of discharge documents and prescriptions, and discussions about the pt's hospital course and discharge plan
with the patient and other medical information officer involved in the patient's care.
Anticipated Discharge: Today
Subjective/Interval History
-
Date of Service: December 22, 2023
No new complaints.
Objective Data
-
Labs:
Laboratory Results
12/22/23
05:00
WBC 6.2
Hgb 11.4 L
Hct 35.9 L
Plt Count 152
Sodium 140
Potassium 4.5
Chloride 106
Carbon Dioxide 25
BUN 25 H
Creatinine 1.2 H
Glucose 133 H
Calcium 9.4
Vital Signs:
Vital Signs
Temp Pulse Resp BP Pulse Ox
98.2 F 85 20 127/62 94
12/22/23 06:58 12/22/23 09:18 12/22/23 06:58 12/22/23 09:18 12/22/23 09:13
I&O
12/21/23 12/22/23 12/23/23
06:59 06:59 06:59
Intake Total 960 / 960 240 / 240
Output Total
Balance 940 / 940 226 / 226
[2023-12-22] MEDS: CYMBALTA DELAYED RELEASE PO (11:22)
[2023-12-22 11:41] VITALS: BP 119/70
[2023-12-22 12:03] LABS: Glucose - Point of Care 143 mg/dl (70-99)
--- NOTE | 2023-12-22 13:23 | W.DCSUMMARY ---
Discharge Summary
Discharge Data
Date of Admission: 12/20/23
Date of Discharge: 12/22/23
-
Pending Results: No
Hospital Course
Primary diagnoses:
Infected ICD pocket s/p pocket revision, relocation, and washout of previous pocket on 12/20/23
Acute kidney injury, mild
Secondary diagnoses:
Chronic heart failure with reduced ejection
Coronary disease with h/o myocardial infarction and stent
Type 2 diabetes mellitus
Depression
Anxiety
Hyperlipidemia
Essential hypertension
Hypothyroidism
Gastroesophageal reflux disease
Obesity due to excess calories
Consultants:
Cardiology
Infectious disease
Imaging:
Echo: Severely dilated LV with severely reduced systolic function.
LVEF is 20 to 25% by visual estimation.
RCA and Circumflex territory severe hypokinesis, LAD hypokinesis.
Stage II diastolic dysfunction suggestive of abnormal relaxation and increased
filling pressures.
Normal right ventricular size and function.
Mild to moderate eccentric, posteriorly directed mitral regurgitation.
Mild tricuspid regurgitation.
Estimated pulmonary artery pressure of 34 mmHg assuming a right atrial pressure
of 3 mmHg.
Compared to prior from September 01, 2022, on [id number] comparison LV function
is now severely reduced and estimated at 20 to 25% down from moderately
reduced, 30-35%, on prior.
Hospital course: 73-year-old female who was transferred here for intervention of an infected ICD pocket. On December 19, 2022 she underwent ICD pocket revision, relocation, and washout of previous pocket on 12/20/23. Patient was placed on empiric
cefepime. Wound culture was no growth. She was seen in consultation by infectious disease and transitioned to Rocephin 2 g IV daily through January 18, 2024. She did have mild acute kidney injury with an increase in creatinine from 0.9-1.2.
Echocardiogram above was notable for an ejection fraction of 20 to 25% with stage II diastolic dysfunction. Her Coreg and Jardiance were continued. She will have further goal-directed medical therapy as an outpatient.
Discharge Plan
-
Patient Disposition: Home (Routine Discharge)
Discharge Diagnosis/Procedures: ICD pocket infection s/p washout
Condition: Good
Diet: Low Cholesterol, Low Sodium, Diabetic, Carb Controlled and Other diet
Additional Diets: Fluid restrict to 1200 cc/day
Activity: As tolerated
Driving Restrictions: No driving for 24 hours
Bathing Restrictions: OK to Shower
Blood Work: BMP and CBC in 1 week, prescription from PCP
Specialty Instructions: Weigh Daily- Call MD for wt gain/loss 3 lbs overnight/5 lbs in 1 week
Stand Alone Forms: DC Inst - Implanted Device
Referrals:
[facility] [Outside]
(Medication will be delivered this evening.
RN will be out tomorrow, 12/22 for 1st medication dose.

)
Maya Escudero NP [Specified Professional Personl] - 12/26/23 1:20 pm (Post device washout/drain placement at Dr. Costa's office)
Ashley Monsalve MD [Family Provider] -
Austen Oates MD [Active] - 12/30/23 10:20 am (Cardiology followup appointment)
Ann Euceda MD [Active] - in two to three weeks
Prescriptions:
Continued
levothyroxine [Synthroid] 175 mcg Tablet
175 mcg PO DAILY
atorvastatin 80 mg Tablet
80 mg PO DAILY
carvedilol [Coreg] 12.5 mg Tablet
12.5 mg PO BID
hydralazine 25 mg Tablet
25 mg PO BID
clopidogrel [Plavix] 75 mg Tablet
75 mg PO DAILY
famotidine 20 mg Tablet
20 mg PO DAILY
metformin 1,000 mg Tablet
1,000 mg PO BID
duloxetine 30 mg Capsule,Delayed Release(Dr/Ec)
30 mg PO DAILY
Jardiance 25 mg Tablet
25 mg PO DAILY
Discharge Orders:
Discharge Patient (As Directed); Ordered 12/22/23
Ordered By: Chang Bashir
Care Plan Goals
Care Plan Goals:
Problem: Readiness for enhanced knowledge related to diagnosis and treatment plan
Goal: Understand your diagnosis and treatment plan needs, including medications if applicable.
Instructions: Know your diagnosis, underlying causes and treatment plan options, including medications if applicable. Consult with your health care team to learn about your diagnosis and treatment plan, including medications if applicable.
Discharge Date and Time
Print Language: GAMBIAN
--- NOTE | 2023-12-22 14:55 | PTCARENOTE ---
Pt seen by [facility] inventory representative and home antibiotic teaching completed, right midline catheter device to stay in place at home. Telemetry device removed. Discharge instructions reviewed with pt and her regarding CHF guidelines, wound
care, activity and driving restrictions, reporting cares and concerns and follow up appt's. Very good understanding verbalized. Pt esorted out via wheelchair and discharged to home.
== END 2023-12-22 14:30 | disposition home health service (06) | DRG 261 ==
LOC: IVU 11:28
PROVIDERS: Internal Medicine; Registered Nurse; ADMITTING PHYSICIAN Internal Medicine; CONSULT PHYSICIAN Internal Medicine Cardiovascular Disease; CONSULT PHYSICIAN Internal Medicine Infectious Disease; FAMILY PHYSICIAN Student in an Organized Health Care Education/Training Program
PROC: 4B02XTZ Measurement of Cardiac Defibrillator, External Approach (ICD-10-PCS; 2023-12-20)
PROC: 0JWT0PZ Revision of Cardiac Rhythm Related Device in Trunk Subcutaneous Tissue and Fascia, Open Approach (ICD-10-PCS; 2023-12-20)
PROC: 0JD60ZZ Extraction of Chest Subcutaneous Tissue and Fascia, Open Approach (ICD-10-PCS; 2023-12-20)
PROC: 0J9600Z Drainage of Chest Subcutaneous Tissue and Fascia with Drainage Device, Open Approach (ICD-10-PCS; 2023-12-20)
DX: T82.7XXA Infection and inflammatory reaction due to other cardiac and vascular devices, implants and grafts, initial encounter (principal); I13.0 Hypertensive heart and chronic kidney disease with heart failure and stage 1 through stage 4 chronic kidney disease, or unspecified chronic kidney disease; I50.22 Chronic systolic (congestive) heart failure; K51.90 Ulcerative colitis, unspecified, without complications; N17.9 Acute kidney failure, unspecified; B96.4 Proteus (mirabilis) (morganii) as the cause of diseases classified elsewhere; Y83.1 Surgical operation with implant of artificial internal device as the cause of abnormal reaction of the patient, or of later complication, without mention of misadventure at the time of the procedure; Y92.9 Unspecified place or not applicable; E78.00 Pure hypercholesterolemia, unspecified; E11.22 Type 2 diabetes mellitus with diabetic chronic kidney disease; N18.9 Chronic kidney disease, unspecified; I25.10 Atherosclerotic heart disease of native coronary artery without angina pectoris; F32.A Depression, unspecified; F41.9 Anxiety disorder, unspecified; E03.9 Hypothyroidism, unspecified; K21.9 Gastro-esophageal reflux disease without esophagitis; J45.909 Unspecified asthma, uncomplicated; I25.5 Ischemic cardiomyopathy; E66.09 Other obesity due to excess calories; M35.3 Polymyalgia rheumatica; M19.90 Unspecified osteoarthritis, unspecified site; M51.36 Other intervertebral disc degeneration, lumbar region; Z96.652 Presence of left artificial knee joint; Z96.611 Presence of right artificial shoulder joint; I25.2 Old myocardial infarction; Z95.810 Presence of automatic (implantable) cardiac defibrillator; Z95.5 Presence of coronary angioplasty implant and graft; Z87.891 Personal history of nicotine dependence; Z86.718 Personal history of other venous thrombosis and embolism; Z87.19 Personal history of other diseases of the digestive system; Z88.1 Allergy status to other antibiotic agents; Z79.02 Long term (current) use of antithrombotics/antiplatelets; Z79.84 Long term (current) use of oral hypoglycemic drugs; Z79.890 Hormone replacement therapy; Z68.32 Body mass index [BMI] 32.0-32.9, adult
CPT/HCPCS: 11042; 33222; 80048; 80053; 82962; 83036; 85027; 86803; 87070; 87075; 87205; 93005; 93306; Q9950

== ENCOUNTER 2024-01-01 16:40 | Emergency (ER) | payer OTHER, SELFPAY ==
[2024-01-01 16:50] VITALS: BP 154/70
--- NOTE | 2024-01-01 17:58 | ED.GENMED ---
History of Present Illness
<Maya Gordillo PA-C - Last Filed: 01/06/24 13:07>
General
Chief Complaint: Catheter/Tube Problem
Source: patient
Exam Limitations: none
Time Seen by Provider: 01/01/24 17:18
Nursing documentation reviewed up to this point in time: agreed with
Travel History
Have you had any contact with someone who has COVID-19?: No
Do you have any symptoms of coronavirus? Fever > 100 degrees, chills, cough, shortness of breath, sore throat, loss of taste or smell, muscle aches, or headache?: No
History of Present Illness
History of Present Illness:
73 y/o F with h/o htn, CAD with cardiomyopathy reduced EF s/p ICD
had infected ICD pocket s/p revision, relpocation and washout of previous pocket on IV abx via Midline RUE rocephin 2 g IV daily throuh january 17
she is here becuase she tried to flush her midline at home and couldn't flush it so she did not receive her dose of rocpehin today
pt's procedure is to flush first, then give the rocephin herself, then heparin flush
she says she did this easily yesterday
she tried this afternoon and couldn't flush it
she bleieves both clamps were unclamped
no pain, arm swelling, cp, sob,
she does have asthma and has some wheezing midly cohronically
Past History
<Maya Gordillo PA-C - Last Filed: 01/06/24 13:07>
Past History
ED Past Medical History: CAD, CHF, HTN and Hypercholesterolemia
Social History
Tobacco: Non-smoker
Review of Systems
<Maya Gordillo PA-C - Last Filed: 01/06/24 13:07>
Review of Systems
Allergies reviewed?: Yes
All Other Systems: Not applicable
Phy Exam
<Maya Gordillo PA-C - Last Filed: 01/06/24 13:07>
Physical Exam
Physical Exam:
GENERAL: Alert , in no apparent distress
EYE: pupils equal and reactive
NECK: Supple
ENT: o/p clr, mmm.
CARDIAC: Regular rate and rhythm .2+ radial pulse right side
LUNGS: very faint wheezign end exp b/l no resp distress, no cough
chest wall: pt has drain in Left upper chest wall where pt's defibrillator site was cleaned out
with some serosanguanous fluid
ABDOMEN: Soft, without focal tenderness, no r/g, no cvat, normal bowel sounds
NEUROLOGICAL: Alert and oriented, no focal neuro deficits
SKIN: Warm and dry, skin intact.
RUE no sewlling, warmth, tendneress, normal pules, no streaking redness
flushed the midline eaisly
MUSCULOSKELETAL: No edema, well perfused.
PSYCH: Normal and appropriate interaction.
Course
<Maya Gordillo PA-C - Last Filed: 01/06/24 13:07>
Vital Signs
Initial and Last Documented VS:
Initial Vital Signs
Temp Pulse Resp BP Pulse Ox
99.0 F 107 16 154/70 100
01/01/24 16:50 01/01/24 16:50 01/01/24 16:50 01/01/24 16:50 01/01/24 16:50
Last Documented Vital Signs
Temp Pulse Resp BP Pulse Ox
99.0 F 100 16 124/65 93
01/01/24 16:50 01/01/24 19:33 01/01/24 16:50 01/01/24 19:33 01/01/24 19:33
<Augustus Nova Jr., PA-C - Last Filed: 01/01/24 19:18>
Vital Signs
Initial and Last Documented VS:
Initial Vital Signs
Temp Pulse Resp BP Pulse Ox
99.0 F 107 16 154/70 100
01/01/24 16:50 01/01/24 16:50 01/01/24 16:50 01/01/24 16:50 01/01/24 16:50
Last Documented Vital Signs
Temp Pulse Resp BP Pulse Ox
99.0 F 100 16 124/65 93
01/01/24 16:50 01/01/24 19:33 01/01/24 16:50 01/01/24 19:33 01/01/24 19:33
<Maya Gordillo PA-C - Last Filed: 01/06/24 13:07>
MDM/Problems Addressed
Differential Diagnosis Includes:
midline clotted;
MDM/Problems Addressed:
73 y/o F with midline for IV abx for infected defibrillator site after hosptialization 12/19-
here for concerns that her midline is clogged
she was unable to flush it today
she believes both the clamps were unclamped when she tried to flush at home
here the midline was clamped and unclamped 2 of them and flushed NS easily
she had a little bit oif discomfort just proximal to the line but it flushed well
it did not withdrawal easily
called IV team for evaluation
they will be down to assess
s/o to indu nova pa-c
<Augustus Nova Jr., PA-C - Last Filed: 01/01/24 19:18>
MDM/Problems Addressed
MDM/Problems Addressed:
73 y/o F with midline for IV abx for infected defibrillator site after hosptialization 12/19-
here for concerns that her midline is clogged
she was unable to flush it today
she believes both the clamps were unclamped when she tried to flush at home
here the midline was clamped and unclamped 2 of them and flushed NS easily
she had a little bit oif discomfort just proximal to the line but it flushed well
it did not withdrawal easily
called IV team for evaluation
they will be down to assess
s/o to ed [place]
Patient was assessed by IV team midline catheter working well stable for outpatient management discharge.
<Augustus Nova Jr., PA-C - Last Filed: 01/01/24 19:18>
*Critical Care Note
Total Time (30-74mins, 75-104mins- exclusive of procedures): Not Applicable
ED Attending Note
<Maya Gordillo PA-C - Last Filed: 01/06/24 13:07>
-
Portions of this chart may have been created with voice recognition software.� Occasional wrong word or��sound alike� substitutions may have occurred due to the inherent limitations of voice recognition software.
Discharge Plan
Departure
Patient Disposition: Home (Routine Discharge)
Date of Disposition: 01/01/24
Time of Disposition: 19:14
Patient with high blood pressure during this ER visit?: No
Condition: Good
Covid-19: Not Applicable
Discharge Problem:
Complication of intravenous catheter site
Instructions: How to care for a midline IV catheter
Prescriptions:
No Action
levothyroxine [Synthroid] 175 mcg Tablet
175 mcg PO DAILY
atorvastatin 80 mg Tablet
80 mg PO DAILY
carvedilol [Coreg] 12.5 mg Tablet
12.5 mg PO BID
hydralazine 25 mg Tablet
25 mg PO BID
clopidogrel [Plavix] 75 mg Tablet
75 mg PO DAILY
famotidine 20 mg Tablet
20 mg PO DAILY
metformin 1,000 mg Tablet
1,000 mg PO BID
duloxetine 30 mg Capsule,Delayed Release(Dr/Ec)
30 mg PO DAILY
Jardiance 25 mg Tablet
25 mg PO DAILY
Referrals:
NONE,* [Family Provider] -
Activity Restrictions/Additional Instructions:
Please follow up closely for ongoing medical care. Return to the emergency department any worsening, new or concerning symptoms
Interventions
Interventions:
*Risk Screen - Suicide Last Done: 01/01/24 19:33
*General Assessment Last Done: 01/01/24 19:33
*Neglect/Abuse Screening Last Done: 01/01/24 19:33
ED- Fall Risk Assessment Last Done: 01/01/24 19:33
*ED COVID-19 Vaccine History Last Done: 01/01/24 19:33
*Nursing Disposition Last Done: 01/01/24 19:33
Discharge Date and Time
Discharge Date/Time: 01/01/24 19:35
Print Language: SINHALA
[2024-01-01 18:08] VITALS: BP 111/69
--- NOTE | 2024-01-01 19:00 | PTCARENOTE ---
BY REQUEST, RA MIDLINE FLUSHED WITHOUT DIFFICULTY. IT WAS PLACED AT 12/19 PER PT FOR HOME ABX, NO NOTED SWELLING, REDNESS OR PAIN. DRESSING CHANGED. PRIMARY RN AWARE
[2024-01-01 19:33] VITALS: BP 124/65
== END 2024-01-01 19:35 | disposition home or self-care (01) ==
LOC: EMR 16:40
PROVIDERS: EMERGENCY PHYSICIAN Emergency Medicine
DX: T82.594A Other mechanical complication of infusion catheter, initial encounter (principal); Y83.8 Other surgical procedures as the cause of abnormal reaction of the patient, or of later complication, without mention of misadventure at the time of the procedure; I25.10 Atherosclerotic heart disease of native coronary artery without angina pectoris; E78.00 Pure hypercholesterolemia, unspecified; I11.0 Hypertensive heart disease with heart failure; I50.9 Heart failure, unspecified; I42.9 Cardiomyopathy, unspecified; J45.909 Unspecified asthma, uncomplicated; K57.90 Diverticulosis of intestine, part unspecified, without perforation or abscess without bleeding; K52.9 Noninfective gastroenteritis and colitis, unspecified; E11.9 Type 2 diabetes mellitus without complications; I25.2 Old myocardial infarction; Z95.810 Presence of automatic (implantable) cardiac defibrillator; Z86.718 Personal history of other venous thrombosis and embolism; Z79.02 Long term (current) use of antithrombotics/antiplatelets; Z79.84 Long term (current) use of oral hypoglycemic drugs; Z90.49 Acquired absence of other specified parts of digestive tract; Z88.1 Allergy status to other antibiotic agents; Z88.2 Allergy status to sulfonamides
CPT/HCPCS: 99282

== ENCOUNTER 2024-01-05 20:31 | Emergency (ER) | payer OTHER, SELFPAY ==
[2024-01-05 20:33] VITALS: BP 149/72
--- NOTE | 2024-01-05 20:56 | ED.GENMED ---
History of Present Illness
General
Chief Complaint: Catheter/Tube Problem
Source: patient
Time Seen by Provider: 01/05/24 20:45
Travel History
Have you had any contact with someone who has COVID-19?: No
Do you have any symptoms of coronavirus? Fever > 100 degrees, chills, cough, shortness of breath, sore throat, loss of taste or smell, muscle aches, or headache?: No
History of Present Illness
History of Present Illness:
71-year-old female presents the emergency room with concerns about her midline. Patient has a midline because she had an infection in the pocket of her defibrillator. Patient is receiving Rocephin 2 g once a day through January 17. Patient was
actually seen by her infectious disease specialist today who thought everything was fine. This evening when she took her Rocephin she flushed the line and noted there to be fluid leaking. She called the phone number for her nursing support
recommended she come to the emergency room. Patient has no other complaints.
Past History
Past History
ED Past Medical History: CAD, CHF, HTN and Hypercholesterolemia
Social History
Tobacco: Non-smoker
Phy Exam
Physical Exam
Physical Exam:
General: Awake, Alert, Oriented X3. No acute distress.
Vitals: unremarkable
Head: Atraumatic
Eyes: Pupils equal, EOMI
Neck: Trachea midline
Lungs: Clear and equal b/l
Heart: Regular rate, no murmurs
Abd: Soft, Nontender, No pulsatile mass
Neuro: Nonfocal
Skin: Warm, dry, no rash
Extremities: pulses equal b/l, no edema. Midline noted in the right upper extremity. There is no erythema surrounding the insertion point. There does appear to be some fluid under the dressing.
Course
Vital Signs
Initial and Last Documented VS:
Initial Vital Signs
Temp Pulse Resp BP Pulse Ox
98.1 F 93 18 149/72 95
01/05/24 20:33 01/05/24 20:33 01/05/24 20:33 01/05/24 20:33 01/05/24 20:33
Last Documented Vital Signs
Temp Pulse Resp BP Pulse Ox
98.1 F 93 18 149/72 95
01/05/24 20:33 01/05/24 20:33 01/05/24 20:33 01/05/24 20:33 01/05/24 20:33
MDM/Problems Addressed
MDM/Problems Addressed:
Considered flushing the midline to see if it is leaking however IV team is here and they manage midlines and PICC lines for this patient so we will consult them to evaluate.
*Critical Care Note
Total Time (30-74mins, 75-104mins- exclusive of procedures): Not Applicable
ED Attending Note
-
Portions of this chart may have been created with voice recognition software.� Occasional wrong word or��sound alike� substitutions may have occurred due to the inherent limitations of voice recognition software.
Discharge Plan
Departure
Patient Disposition: Home (Routine Discharge)
Patient with high blood pressure during this ER visit?: No
Condition: Good
Discharge Problem:
Dysfunction of intravenous infusion line
Instructions: How to care for a midline IV catheter
Prescriptions:
No Action
levothyroxine [Synthroid] 175 mcg Tablet
175 mcg PO DAILY
atorvastatin 80 mg Tablet
80 mg PO DAILY
carvedilol [Coreg] 12.5 mg Tablet
12.5 mg PO BID
hydralazine 25 mg Tablet
25 mg PO BID
clopidogrel [Plavix] 75 mg Tablet
75 mg PO DAILY
famotidine 20 mg Tablet
20 mg PO DAILY
metformin 1,000 mg Tablet
1,000 mg PO BID
duloxetine 30 mg Capsule,Delayed Release(Dr/Ec)
30 mg PO DAILY
Jardiance 25 mg Tablet
25 mg PO DAILY
Referrals:
Ashley Monsalve MD [Family Provider] -
Activity Restrictions/Additional Instructions:
Continue to take your antibiotic as instructed by Dr Euceda.
Interventions
Interventions:
*Risk Screen - Suicide Last Done: 01/05/24 20:33
*General Assessment Last Done: 01/05/24 20:33
*Neglect/Abuse Screening Last Done: 01/06/24 00:00
ED- Fall Risk Assessment Last Done: 01/05/24 20:44
*ED COVID-19 Vaccine History Last Done: 01/06/24 00:00
*Nursing Disposition Last Done: 01/06/24 00:00
SE-Mfojkc-Mflgnkhxjt Assessment Last Done: 01/05/24 20:44
ED-Female Genitourinary Assessment Last Done: 01/05/24 20:44
Discharge Date and Time
Discharge Date/Time: 01/06/24 00:18
Print Language: MAURITIAN
--- NOTE | 2024-01-05 22:38 | VATNOTE ---
PT TO EMR WITH 4FR SL R MIDLINE. ML LEAKING. REMOVED AND TCL OF 14CM RECOVERED. 4FR SL L BASILIC ML INSERTED FOR HOME ABX THERAPY THRU 01/17. CONSULTED WITH MD PRIOR TO ML INSERTION. PT TOLERATED PROCEDURE WELL AND DISCHARGED WITH INSTRUCTIONS TO
NOTIFY HOME [employer] COMPANY OF NEW ML INSERTION AND NEED FOR RD. PT AND WITH GOOD UNDERSTANDING OF CARE AND FOLLOW UP RELATED TO EMR VISIT TONIGHT. PT SENT HOME WITH ML INFO WELL.
== END 2024-01-06 00:18 | disposition home or self-care (01) ==
LOC: EMR 20:31
PROVIDERS: EMERGENCY PHYSICIAN Emergency Medicine; FAMILY PHYSICIAN Student in an Organized Health Care Education/Training Program
DX: T82.534A Leakage of infusion catheter, initial encounter (principal); Y92.9 Unspecified place or not applicable; I25.10 Atherosclerotic heart disease of native coronary artery without angina pectoris; I11.0 Hypertensive heart disease with heart failure; I50.9 Heart failure, unspecified; E78.00 Pure hypercholesterolemia, unspecified
CPT/HCPCS: 99282

== ENCOUNTER 2024-07-15 17:10 | Inpatient (IN) | payer OTHER, SELFPAY ==
[2024-07-15 13:13] VITALS: BP 139/65
[2024-07-15 14:46] VITALS: BMI 29.7
[2024-07-15 15:07] VITALS: BP 124/60
[2024-07-15 15:32] LABS: % Eosinophils 3.7 % (0-6); % Immature Granulocytes 0.3 % (0-0.5); % Lymphocytes 13.2 % (20.5-51.1); % Monocytes 7.8 % (1.7-9.3); Absolute Basophils 0.1 10^3/uL (0-0.2); Absolute Eosinophils 0.3 10^3/uL (0-0.7); Absolute Monocytes 0.6 10^3/uL (0.1-0.6); Absolute Neutrophils 5.4 10^3/uL (1.4-6.5); Hemoglobin 11.3 g/dL (12.0-16.0); Mean Corp Hgb Conc. 32.3 g/dL (33.0-37.0); Mean Corpuscular Hgb 34.9 pg (27.0-31.0); Mean Platelet Volume 10.2 fL (7.4-10.4); Nucleated Red Blood Cells % 0 %; Platelet Count 163 10^3/uL (130-400); Red Blood Cell Count 3.24 10^6/uL (4.20-5.40); Red Cell Dist. Width 14.3 % (11.5-14.5); White Blood Cell Count 7.3 10^3/uL (4.8-10.8)
[2024-07-15 15:41] LABS: Lactic Acid 2.8 mmol/L (0.7-2.0)
[2024-07-15 15:42] LABS: ALT (SGPT) 14 U/L (0-35); AST (SGOT) 26 U/L (14-36); Albumin 4.2 g/dl (3.5-5.0); Alkaline Phosphatase 100 U/L (38-126); Blood Urea Nitrogen 36 mg/dl (7-17); Calcium 9.8 mg/dl (8.4-10.2); Carbon Dioxide 28 mmol/L (22-30); Chloride 101 mmol/L (98-107); Estimated Creatinine Clearance 36 ml/min; Glucose 90 mg/dl (70-99); Sodium 139 mmol/L (135-145); Total Bilirubin 0.5 mg/dl (0.2-1.3); Total Protein 7.2 g/dl (6.3-8.2); eGFR 43.42
--- NOTE | 2024-07-15 16:16 | ED.GENMED ---
History of Present Illness
General
Chief Complaint: Skin Problem
Source: patient and spouse
Exam Limitations: none
Time Seen by Provider: 07/15/24 14:57
Nursing documentation reviewed up to this point in time: agreed with
History of Present Illness
History of Present Illness:
Patient is a 74-year-old female with pacemaker presents to the ER for evaluation. Patient started with redness to the left pacemaker site last Tuesday and on Tuesday saw her director of food and nutrition at [facility] Dr. Ro. She
also spoke with and was started on doxycycline and clindamycin. Antibiotics were started on Tuesday however she has had increasing redness and swelling to the area. She now complains of some discomfort to the left armpit area. She
denies any fevers.
Past History
Past History
ED Past Medical History: CAD, CHF, HTN and Hypercholesterolemia
Social History
Tobacco: Non-smoker
Review of Systems
Review of Systems
Allergies reviewed?: Yes
All Other Systems: ROS reviewed and negative except as documented in HPI and ROS
Constitutional: Reports no symptoms; Denies fever
Respiratory: Reports no symptoms
Cardiac: Reports no symptoms
ABD/GI: Reports no symptoms
Musculoskeletal: Reports no symptoms
Skin: Reports other (redness/swelling to left pacemaker site )
Neurological: Reports no symptoms
Psychiatric: Reports no symptoms
Phy Exam
General Physical Exam
General Presentation: well appearing
General age: appears stated age
General Skin: warm and dry
General Habitus: normal
General Mental: alert
General Hydration: appears well hydrated
Cardiovascular Exam
Cardiovascular Exam: regular rate/rhythm, no murmur and normal peripheral pulses
Pulmonary Exam
Pulmonary Exam: lungs clear and no respiratory distress
Neurological Exam
Neurological Exam: alert and oriented x3
Musculoskeletal Exam
Musculoskeletal Exam: full ROM
Skin Exam
Skin Exam: normal color, warm/dry and other (Left chest wall with swelling and erythema with small area of fluctuance over pacemaker site; very tender to palpation)
Psychiatric Exam
Psychiatric Exam: normal mood/affect
Course
Orders/Labs/Results
Orders:
Orders
07/15/24 15:10
Complete Blood Count/With Diff Urgent
Comprehensive Metabolic Panel Urgent
Lactic Acid Urgent
07/15/24 16:22
Aztreonam [Azactam] 1,000 mg IV NOW STA
07/15/24 16:30
Blood Culture Q30M
CHANI Source: Blood/Venous
Specimen Description:
07/15/24 16:58
Admit/Transfer Patient As Directed
Co-Sign Provider:
Level of Care: Inpatient admission
Assign to:: IVU
Physician / Group: Dr Arrieta
Diagnosis: Infected Pacemaker
Reason for Hospitalization: pte p/w infected ppm
Expected length of stay greater than two midnights?: Yes
ELOS- Estimated Length of Stay in days: 2
I certify the patient meets the requirements for IP care: Yes
PRN Pain Medication Management As Directed
May give lesser potent ordered pain med per pt: Yes
preference::
Protocol:: Medication orders for pain may be administered in a
manner that supports deferring to patient preference
when the pt is:
- Requesting an ordered lesser potent pain medication.
Least to most potent pain medications are defined
as: acetaminophen < NSAID < tramadol < opioids
(morphine, oxycodone, hydromorphone).
- Requesting a lesser dose of the same medication IF
ORDERED.
- Requesting a less intrusive route of administration
if both routes are prescribed by the provider (PO <
IV).
07/15/24 17:00
Code Status As Directed
Resuscitation Status: Full Code
Blood Culture Q30M
CHANI Source: Blood/Venous
Specimen Description:
07/15/24 17:03
CARDIOLOGY CONSULT Routine
Consulting Provider: Gokul Costa
Was physician already notified: Yes
Reason for consult: Infected PPM
07/15/24 18:00
VANCOMYCIN Pharmacy to Dose [VANCOCIN Pharmacy to Dose] 1 each Pharmacy To Prepare [Call Pharmacy To Prepare] 0 ml IV PER PROTOCOL
07/16/24 09:00
Cefepime HCl [Maxipime] 2,000 mg IV Q12H
Abnormal Lab Results
07/15/24
15:10
RBC 3.24 L 10^6/uL
(4.20-5.40)
Hgb 11.3 L g/dL
(12.0-16.0)
Hct 35.0 L %
(37.0-47.0)
MCV 108.0 H fL
(81.0-99.0)
MCH 34.9 H pg
(27.0-31.0)
MCHC 32.3 L g/dL
(33.0-37.0)
Absolute Lymphs (auto) 1.0 L 10^3/uL
(1.2-3.4)
Lymphocytes % 13.2 L %
(20.5-51.1)
BUN 36 H mg/dl
(7-17)
Creatinine 1.3 H mg/dL
(0.6-1.0)
Lactic Acid 2.8 H mmol/L
(0.7-2.0)
07/15/24 15:10
07/15/24 15:10
Vital Signs
Initial and Last Documented VS:
Initial Vital Signs
Temp Pulse Resp BP Pulse Ox
98.1 F 77 18 139/65 92
07/15/24 13:13 07/15/24 13:13 07/15/24 13:13 07/15/24 13:13 07/15/24 13:13
Last Documented Vital Signs
Temp Pulse Resp BP Pulse Ox
98.1 F 77 18 124/60 98
07/15/24 13:13 07/15/24 13:13 07/15/24 13:13 07/15/24 15:07 07/15/24 15:07
Funeral Professional consulted with Physician
Funeral Professional consulted with physician?: Yes
Name of Physician Consulted: DR Tay
MDM/Problems Addressed
Differential Diagnosis Includes:
not limited to : infected pacemaker site/cellulitis
MDM/Problems Addressed:
Patient is a 74-year-old with infected pacemaker. She has been on antibiotics since Tuesday including clindamycin and doxycycline with worsening symptoms. She however is nontoxic denies any fevers white count is normal her lactic acid is elevated.
Case discussed with business management consultant who does recommend blood cultures and IV aztreonam and vancomycin will plan for admission.
Chronic conditions affecting care:
PM
*Critical Care Note
Total Time (30-74mins, 75-104mins- exclusive of procedures): Not Applicable
Patient Management
Discussion with other providers: [employer] (DR Costa )
ED Attending Note
-
Portions of this chart may have been created with voice recognition software.� Occasional wrong word or��sound alike� substitutions may have occurred due to the inherent limitations of voice recognition software.
Discharge Plan
Departure
Patient Disposition: Admit
Date of Disposition: 07/15/24
Time of Disposition: 16:28
Admit to: Med/Surg
Admit to doctor: hospitalist
Presentation/result/management discussed w/ accepting MD/DO: Hospitalist
Patient with high blood pressure during this ER visit?: Yes
Condition: Fair
Covid-19: Not Applicable
Discharge Problem:
Infected pacemaker
Interventions
Interventions:
*Risk Screen - Suicide Last Done: 07/15/24 13:13
*General Assessment Last Done: 07/15/24 13:13
*Neglect/Abuse Screening Last Done: 07/15/24 13:13
ED-Skin Assessment Last Done: 07/15/24 15:34
--- NOTE | 2024-07-15 17:04 | HPS.HSE ---
Family Physician
-
Family Physician: Ashley Monsalve
Chief Complaint
-
Erythema pacemaker site
History of Present Illness
Patient 74 years old female with history of CAD, pacemaker, hypertension, hyperlipidemia, asthma, diabetes mellitus, CKD, ulcerative colitis, chronic back pain, presented to the hospital with erythema at the pacemaker site. Patient follows up with
cardiology at [facility] but also has seen Dr. Costa since he changed her pacemaker in the past and she was seen at the cardiology office last Tuesday and was prescribed antibiotics and instructed to come to the hospital if not improvement.
Patient has noticed redness, erythema, swelling, and pain at the pacemaker site in her left upper chest area since last Tuesday and she was placed on oral doxycycline and clindamycin without significant improvement. Her pain has gotten worse and
radiated to the left axilla region associated with erythema and swelling and increased amount of pain. Denies fevers or chills. Denies chest pain or shortness of breath. Denies nausea vomiting or diarrhea. Denies dizziness lightheadedness or
syncope. In the ER, her blood pressure stable at 124/60 and heart rates in the 70s, she takes beta-blockers, and she is afebrile, and WBC normal 7.3. ED contacted EP shank archer who recommended to give first dose of antibiotics in the ED and
cardiology will see her. She was referred to hospitalist service for further evaluation.
Medical History
Past Medical History
Past Medical History: Reports Other
Additional Past Medical History:
Ulcerative colitis
Bulging disc
Hyperlipidemia
Type 2 diabetes
Hypertension
CAD/GA
Ventricular tachycardia
Past Surgical History: Reports Other
Additional Past Surgical History:
Defibrillator in place
Cardiac stent
Cataract surgery
Tonsillectomy
[place] tooth extraction
Right shoulder replacement
Cholecystectomy
Bowel resection
Hysterectomy
Social History
Tobacco: Non-smoker
Alcohol: None
Family History
Family History: Not pertinent
Allergies / Home Medications
Allergies reflects when Allergies were last updated in [employer].
Home Medications with original date entered in [employer]
Allergy/Medication List:
Allergies
Allergy/AdvReac Type Severity Reaction Status Date / Time
levofloxacin [From Levaquin] Allergy Tongue Verified 07/15/24 13:13
Swelling
Sulfa (Sulfonamide Allergy Unknown Verified 07/15/24 13:13
Antibiotics)
Home Medications
atorvastatin 80 mg tablet 80 mg PO QPM 12/20/23
carvedilol 12.5 mg tablet (Coreg) 12.5 mg PO BID 12/20/23
clopidogrel 75 mg tablet (Plavix) 75 mg PO DAILY 12/20/23
duloxetine 30 mg capsule,delayed release 30 mg PO DAILY 12/20/23
empagliflozin 25 mg tablet (Jardiance) 25 mg PO DAILY 12/20/23
famotidine 20 mg tablet 20 mg PO DAILY 12/20/23
hydralazine 25 mg tablet 25 mg PO TID 12/20/23
levothyroxine 175 mcg tablet (Synthroid) 175 mcg PO MOTUWETHFR@0700 12/20/23
metformin 1,000 mg tablet 1,000 mg PO BID 12/20/23
Lactobac no.2-Bifidobac no.1-S. thermo 112.5 billion cell capsule (Visbiome) 1 cap PO DAILY 07/15/24
Trelegy Hfa 1 puff inhalation R DAILY 07/15/24
clindamycin HCl 300 mg capsule 300 mg PO BID 07/15/24
doxycycline hyclate 100 mg tablet,delayed release 100 mg PO BID 07/15/24
furosemide 20 mg tablet (Lasix) 40 mg PO DAILY 07/15/24
therapeutic multivitamin 1 tab PO DAILY 07/15/24
Review of Systems
-
A 12 point ROS was completed and negative except as noted: Yes
Physical Exam
Vital Signs
Vital Signs
Temp Pulse Resp BP Pulse Ox
98.1 F 77 18 124/60 98
07/15/24 13:13 07/15/24 13:13 07/15/24 13:13 07/15/24 15:07 07/15/24 15:07
Physical exam:
General: Acutely ill. Nontoxic appearance.
HEENT: Normocephalic, Atraumatic and Moist Mucous Membranes
Respiratory: Clear to Auscultation; Negative Wheezes, Rales or Rhonchi
Cardiac: Erythema tenderness and swelling on the pacemaker site is evident. Regular Rhythm and S1/S2
GI: Soft, Nontender and Nondistended
Musculoskeletal: No Clubbing, No Cyanosis and No Edema
Neuro: Awake, Alert and Oriented, no neurological deficits
Psych: Calm
Physical Exam
General: Other
Laboratory Results
-
07/15/24 15:10
07/15/24 15:10
Laboratory Results
Lactic Acid 2.8 mmol/L (0.7-2.0) H 07/15/24 15:10
Total Bilirubin 0.5 mg/dl (0.2-1.3) 07/15/24 15:10
AST 26 U/L (14-36) 07/15/24 15:10
ALT 14 U/L (0-35) 07/15/24 15:10
Alkaline Phosphatase 100 U/L (38-126) 07/15/24 15:10
Data Reviewed
-
Lab Data: Labs Reviewed by me
Impression/Plan
-
IMPRESSION:
Patient 74 years years old female with multiple comorbidities who came into the hospital with infected pacemaker site. She is at risk of increased morbidity mortality therefore she will need to be treated in the hospital and monitor accordingly.
PLAN:
Infected ICD pacemaker pocket skin soft tissue infection:
Admit to IVU
At risk of sepsis but no evidence of such at this point
Obtain chest x-ray stat
Given IV aztreonam and IV vancomycin in the ER
Continue IV cefepime and vancomycin for now and further antibiotic depending on cultures.
Follow-up blood cultures
Cardiology consulted--> follow-up their recommendations
Pain control
Hypertension:
Continue home antihypertensives
Monitor blood pressure and adjust medications accordingly
Hyperlipidemia:
Continue home statin
Diabetes mellitus type 2:
Diabetic diet
Insulin sliding scale
Continue Jardiance
Hold metformin in setting of infection
Chronic HFrEF:
Appears euvolemic on exam
Last echo on 12/29 EF 20 to 25% and stage II diastolic dysfunction
Continue oral diuretics
Continue beta-raulito
CAD:
Continue current anti-ischemic regimen
Continue cardiac monitoring
Hypothyroidism:
Continue levothyroxine home doses
Depression anxiety:
Continue antidepressant
CKD stage III:
Avoid nephrotoxic
Monitor renal function
GERD:
Continue H2 raulito
Obesity:
Lifestyle changes modifications warranted for weight loss
DVT prophylaxis:
Lovenox SQ
CODE STATUS:
Full code
Time spent 75 minutes
[2024-07-15] MEDS: VANCOCIN 540 MG IV (17:40)
[2024-07-15 17:52] VITALS: BP 118/65
[2024-07-15] MEDS: AZACTAM 1000 MG IV (19:01)
--- NOTE | 2024-07-15 19:11 | EDRN ---
Report received, IV team finished putting in an IV so gave patient antibiotics as ordered, Vanc. had been started awhile ago but since the IV didn't work it was paused, Azactam given and then vanc. started back up.
[2024-07-15 19:55] VITALS: BP 143/76
[2024-07-15 20:00] VITALS: BMI 30.1
[2024-07-15 20:05] LABS: Glucose - Point of Care 67 mg/dl (70-99)
[2024-07-15 20:20] LABS: Glucose - Point of Care 79 mg/dl (70-99)
[2024-07-15 20:29] VITALS: BMI 30.1
[2024-07-15] MEDS: APRESOLINE 25 MG PO (21:48)
[2024-07-15] MEDS: COREG 12.5 MG PO (21:48)
[2024-07-15] MEDS: LIPITOR 80 MG PO (21:49)
[2024-07-15] MEDS: TYLENOL 650 MG PO (22:09)
[2024-07-15 22:16] VITALS: BP 123/59
[2024-07-16] VITALS (8 sets, daily range): BP systolic 85–123; BP diastolic 38–73; BMI 29.8
[2024-07-16 01:46] LABS: Lactic Acid 2.1 mmol/L (0.7-2.0)
--- NOTE | 2024-07-16 02:43 | PTCARENOTE ---
Received pt from ER @ 1999. Pt AAOx3 SR on Tele VSS Vanco infusing. Left Chest wall near pacer site red and painful to touch. Tylenol Administered for pain.Accu check 67 upon arrival OJ and turkey meal given repeat bs 78. Pt instructed on use of
call [place].
[2024-07-16 03:21] LABS: Glucose - Point of Care 142 mg/dl (70-99)
--- NOTE | 2024-07-16 04:28 | PTCARENOTE ---
Accu check at [phone] [id number]
[2024-07-16] MEDS: SYNTHROID 175 MCG PO (06:03)
[2024-07-16 06:51] LABS: % Basophils 0.5 % (0-2); % Eosinophils 4.7 % (0-6); % Immature Granulocytes 0.2 % (0-0.5); % Lymphocytes 3.9 % (20.5-51.1); % Monocytes 4.4 % (1.7-9.3); % Neutrophils 86.3 % (42.2-75.2); Absolute Eosinophils 0.4 10^3/uL (0-0.7); Absolute Lymphocytes 0.3 10^3/uL (1.2-3.4); Absolute Monocytes 0.4 10^3/uL (0.1-0.6); Absolute Neutrophils 6.9 10^3/uL (1.4-6.5); Hematocrit 32.9 % (37.0-47.0); Hemoglobin 10.6 g/dL (12.0-16.0); Mean Corp Hgb Conc. 32.2 g/dL (33.0-37.0); Mean Corpuscular Hgb 34.3 pg (27.0-31.0); Mean Corpuscular Volume 106.5 fL (81.0-99.0); Mean Platelet Volume 9.9 fL (7.4-10.4); Nucleated Red Blood Cells % 0 %; Platelet Count 155 10^3/uL (130-400); Red Blood Cell Count 3.09 10^6/uL (4.20-5.40); Red Cell Dist. Width 14.4 % (11.5-14.5)
[2024-07-16 07:02] LABS: Lactic Acid 0.9 mmol/L (0.7-2.0)
[2024-07-16 07:14] LABS: Blood Urea Nitrogen 38 mg/dl (7-17); Calcium 9.4 mg/dl (8.4-10.2); Carbon Dioxide 26 mmol/L (22-30); Chloride 102 mmol/L (98-107); Estimated Creatinine Clearance 36 ml/min; Glucose 126 mg/dl (70-99); Potassium 4.9 mmol/L (3.5-5.1); Sodium 138 mmol/L (135-145); eGFR 43.42
[2024-07-16] MEDS: NOVOLOG FLEXPEN-MODERATE RESISTANCE SC ×3 (08:05→17:26)
[2024-07-16] MEDS: PLAVIX 75 MG PO (08:08)
[2024-07-16] MEDS: APRESOLINE 25 MG PO ×2 (08:08→16:49)
[2024-07-16] MEDS: FARXIGA 25 MG PO (08:08)
[2024-07-16] MEDS: CYMBALTA DELAYED RELEASE 30 MG PO (08:08)
[2024-07-16] MEDS: PEPCID 20 MG PO (08:09)
[2024-07-16] MEDS: COREG 12.5 MG PO ×2 (08:09→20:16)
[2024-07-16] MEDS: LASIX 40 MG PO (08:09)
--- NOTE | 2024-07-16 08:52 | PHA.VAN.IN ---
Assessment
- Assessment
Renal Function: Appears elevated from baseline (1.3 (SCr- 0.9 12/2023))
Maximum Temperature: 98.4
Minimum Temperature: 97.9
Concomitant Antimicrobials: cefepime
Plan
- Plan
Initial / Loading Dose: vanc 2000 mg 07/15 at 1740 (27 mg/kg)
Maintenance Regimen: dose by level
Monitoring: random 07/17 at 0600
MRSA Screen: Ordered per protocol
Pharmacokinetics Vancomycin I
- -
Patient Age: 74
Patient Sex: Female
Vancomycin Day #: 1
Indication: Skin And Soft Tissue (Infected ICD pacemaker pocket skin soft tissue infection)
Requesting Provider: Dr Arrieta
Pertinent Antimicrobial Allergies:
Sulfa (Sulfonamide Antibiotics) Allergy (Verified 07/15/24 13:13) Unknown
levofloxacin [From Levaquin] Allergy (Verified 07/15/24 13:13) Tongue Swelling
Height / Weight:
Height 5 ft 2 in
Actual Weight 73.9 kg
Pertinent Past Medical History: pacemaker
- Vital Signs / Lab Results
Temp Pulse Resp BP Pulse Ox
98.4 F 85 16 100/54 93
07/16/24 08:07 07/16/24 03:37 07/16/24 08:07 07/16/24 03:26 07/16/24 08:07
Lab Results - Hematology
07/15/24 07/16/24
15:10 06:28
WBC 7.3 8.0
Lab Results - Chemistry
07/15/24 07/16/24
15:10 06:28
BUN 36 H 38 H
Creatinine 1.3 H 1.3 H
Estimated Creat Clear 36 36
Albumin 4.2
07/15/24 07/16/24 07/16/24
15:10 01:23 06:28
Lactic Acid 2.8 H 2.1 H 0.9
[2024-07-16] MEDS: MAXIPIME 2000 MG IV ×2 (09:14→20:16)
[2024-07-16] MEDS: STERILE WATER FOR INJECTION 10 ML IV ×2 (09:14→20:16)
[2024-07-16 09:58] LABS: Glycohemoglobin (HgbA1c) 6.1 % (4.0-5.6)
--- NOTE | 2024-07-16 10:58 | CON.CAR ---
Consultation
Consultation Request
Date/Time Consultation Requested: 07/16/24
Date/Time Consultation Performed: 07/15/24
Reason for Consultation: Infected ICD pocket
Medical History
-
Chief Complaint: ICD site swelling and pain
History of Present Illness:
Patient 74 years old female with history of CAD, pacemaker, hypertension, hyperlipidemia, asthma, diabetes mellitus, CKD, ulcerative colitis, chronic back pain, presented to the hospital with erythema at the pacemaker site. Patient follows up with
cardiology at [facility] but also has seen Dr. Costa since he changed her pacemaker in the past and she was seen at the cardiology office last Tuesday and was prescribed antibiotics and instructed to come to the hospital if not improvement.
Patient has noticed redness, erythema, swelling, and pain at the pacemaker site in her left upper chest area since last Tuesday and she was placed on oral doxycycline and clindamycin without significant improvement. Her pain has gotten worse and
radiated to the left axilla region associated with erythema and swelling and increased amount of pain. Denies fevers or chills. Denies chest pain or shortness of breath. Denies nausea vomiting or diarrhea. Denies dizziness lightheadedness or
syncope. In the ER, her blood pressure stable at 124/60 and heart rates in the 70s, she takes beta-blockers, and she is afebrile, and WBC normal 7.3.
Patient was given Aztreonam and admitted with plan for ICD lead extraction.
Past Medical History
Past Medical History: Arrhythmias (VT), CAD, HTN, NIDDM and Other (IBD - UC)
Past Surgical History: Other (Defibrillator in place Cardiac stent Cataract surgery Tonsillectomy [place] tooth extraction Right shoulder replacement Cholecystectomy Bowel resection Hysterectomy)
Social History
Tobacco: Non-Smoker
Alcohol: None
Family History
Family History: Reviewed & Not Pertinent
Allergies / Home Medications
Allergy/AdvReac Type Severity Reaction Status Date / Time
levofloxacin [From Levaquin] Allergy Tongue Verified 07/15/24 13:13
Swelling
Sulfa (Sulfonamide Allergy Unknown Verified 07/15/24 13:13
Antibiotics)
�Medication �Instructions �Recorded �Confirmed �Type
atorvastatin 80 mg tablet 80 mg PO QPM High Cholesterol 12/20/23 07/15/24 History
carvedilol 12.5 mg tablet (Coreg) 12.5 mg PO BID Blood Pressure 12/20/23 07/15/24 History
clopidogrel 75 mg tablet (Plavix) 75 mg PO DAILY Blood Clot 12/20/23 07/15/24 History
Prevention/Tx
duloxetine 30 mg capsule,delayed 30 mg PO DAILY Mental 12/20/23 07/15/24 History
release Health/Anxiety
empagliflozin 25 mg tablet 25 mg PO DAILY Diabetes 12/20/23 07/15/24 History
(Jardiance)
famotidine 20 mg tablet 20 mg PO DAILY Gastrointestinal 12/20/23 07/15/24 History
Issue
hydralazine 25 mg tablet 25 mg PO TID Heart 12/20/23 07/15/24 History
Disease/Condition
levothyroxine 175 mcg tablet 175 mcg PO MOTUWETHFR@0700 Thyroid 12/20/23 07/15/24 History
(Synthroid)
metformin 1,000 mg tablet 1,000 mg PO BID Diabetes 12/20/23 07/15/24 History
Lactobac no.2-Bifidobac no.1-S. 1 cap PO DAILY Gastrointestinal 07/15/24 07/15/24 History
thermo 112.5 billion cell capsule Issue
(Visbiome)
Trelegy Hfa 1 puff inhalation R DAILY 07/15/24 07/15/24 History
Lung/Breathing Issues
clindamycin HCl 300 mg capsule 300 mg PO BID Infection 07/15/24 07/15/24 History
doxycycline hyclate 100 mg 100 mg PO BID Infection 07/15/24 07/15/24 History
tablet,delayed release
furosemide 20 mg tablet (Lasix) 40 mg PO DAILY Fluid 07/15/24 07/15/24 History
Retention/Swelling
therapeutic multivitamin 1 tab PO DAILY Supplement 07/15/24 07/15/24 History
mesalamine 1.2 gram tablet,delayed 2.4 g PO DAILY ulcerative colitis 07/16/24 07/16/24 History
release (Lialda)
Review of Systems
-
All other systems: Negative unless noted
Physical Exam
Vital Signs
Temp Pulse Resp BP Pulse Ox
98.4 F 87 16 121/72 93
07/16/24 08:07 07/16/24 09:30 07/16/24 08:07 07/16/24 08:07 07/16/24 08:07
Lab Results
07/16/24 06:28
07/16/24 06:28
Physical Exam
General: Well Developed, Well Nourished and No Apparent Distress
HEENT: Normocephalic, Anicteric and Moist Mucous Membranes
Respiratory: Clear, Wheezes and Non Labored Respirations
Cardiac: S1/S2, Regular Rhythm and Other (Erythematoud and swollen inferior edge of the incision. Fluctuation noted with extension to the axilla. )
GI: Soft, Non Tender, Non Distended and Normal Bowel Sounds
Musculoskeletal: No Clubbing, No Cyanosis and No Edema
Skin: Warm and Dry
Neuro: Awake, Alert, Oriented, AO x 3 and No Motor Deficits
Psych: Calm
Impression / Plan
-
73-year-old woman with chronic heart failure status post single-chamber ICD 2002 ([employer], status post generator change in 2010 and secondary to change in November 2023 (Dr. Ro at [facility]), coronary disease status post PCI with CHERELLE to LAD in
February 2016, PCI to RCA with stent in December 2016, inflammatory bowel disease (ulcerative colitis), PMR, history of DVT after cholecystectomy, asthma, hypothyroidism, capsulitis, history of partial bowel resection with perforated diverticulitis in 2004,
initially pocket washout on 12/20/23 who presented with her pocket infection and pus coming from the pocket.
Pocket infection
-Infected in November and December s/p debridement but infection is back.
-Pus in the pocket - copious amount.
- s/p drained, washout, debridement, relocation of the ICD generator.
-s/p Outpatient antibiotics - multiple drugs tried. Latest was Clinda and doxy. Failed oral meds - now inpatient.
-Started Aztreonam and Vanco and on Cefepime.
-s/p pocket revision, debridement, washout, relocation of the pocket after maximal attempt of sterilization of the wire and generator 12/20/23
-Hold Plavix and Farxiga
-Plan for hardware removal - laser lead extractio
- Possibility for subQ ICD placement given her high risk of infection.
Heart failure
-Primary prevention ICD in place
-Obtain echocardiogram.
-Look for any obvious vegetations.
-Last echo at our hospital 12/21/23 - : LVEF 20%, moderate MR - RCA and Circumflex territory severe hypokinesis, LAD hypokinesis.
-Currently on Coreg, hydralazine
-Did not tolerate ACEI. on hold with infection. Can retry once BP stable.
Coronary artery disease
-On Plavix, Coreg and Lipitor
-Hold Plavix for now.
DM
-Insulin for tighter glucose control at least while in patient
Data Reviewed
-
EKG: Tracing Personally Visualized and interpreted and Report Reviewed by me
Radiology: Report Reviewed by me
Labs: Labs Reviewed by me
Old Records: Reviewed
[2024-07-16 12:23] LABS: Glucose - Point of Care 142 mg/dl (70-99)
--- NOTE | 2024-07-16 12:30 | PTCARENOTE ---
Assumed care. Patient in chair, comfortable. VSS, call latham in reach
--- NOTE | 2024-07-16 14:51 | CON.ID ---
Consultation
-
Date/Time Consultation Requested: 07/16/2024 1328
Date/Time Consultation Performed: 07/16/2024 1437
Requesting Provider: Dr. Costa
Performing Provider: Dr. Solis
Reason for Consultation: Pacer pocket infeciton
Chief Complaint / Past History
Chief Complaint
Infected ICD
History of Present Illness
Ruma Ro is a 74-year-old female being evaluated regarding defibrillator pocket infection. History is obtained from chart review, along with patient interview, and a review of old records contained in the hospital EMR system.
The patient reports that her defibrillator was replaced in November 2023. On December 14 she noted the ICD site was red and pruritic, and the next day she had spontaneous drainage of purulence. She was admitted to [facility] on December 15, with a
CT of the chest showing the left chest wall battery generator with fluid and air compatible with abscess. She was started on antibiotics and subsequently transitioned to [place], where she underwent ICD generator extraction, pocket incision and
drainage, with replacement of the same generator following cleaning it with Betadine, but placed at a separate site. Leads were retained secondary to significant calcification. She was subsequently discharged to continue with IV ceftriaxone
through 01/18/2024. Thereafter, she was followed off antibiotics and did well until 1 week prior to Thanksgiving when she developed recurrence of pruritus at the pocket site. Approximately 1 week after Thanksgiving the area became increasingly
tender and red. She was started on empiric antibiotics by her physician (clindamycin, doxycycline), but the area became increasingly painful and she presented to the emergency room for further evaluation.
She denies any fevers or chills, but does note some discomfort in the left axillary area.
Past History
Additional Past Medical History:
Diabetes mellitus type 2
Hypertension
CAD status post stent
Ischemic cardiomyopathy status post AICD placement (2002)
Ulcerative colitis on mesalamine
Hypothyroidism
Asthma
PMR
Herniated disc
Depression/anxiety
Additional Past Surgical History:
Perforated diverticulitis status post partial bowel resection 2004
Left knee replacement 2011
Right shoulder replacement 2012
Cholecystectomy
Hysterectomy
Allergy History:
levofloxacin [From Levaquin] Allergy (Verified 07/15/24 13:13)
Tongue Swelling
Sulfa (Sulfonamide Antibiotics) Allergy (Verified 07/15/24 13:13)
Unknown
Medications Reviewed: Yes
Current Antibiotics:
Vancomycin (dosed per pharmacy)
Cefepime 2 g IV every 12 hours.
Social History
Tobacco: Former Smoker
Alcohol: None
Drug: None
Personal:
Family History
Family History: Not Pertinent
Review of Systems
Vital Signs
Temp Pulse Resp BP Pulse Ox
97.8 F 91 16 120/60 96
07/16/24 12:08 07/16/24 12:15 07/16/24 12:08 07/16/24 12:08 07/16/24 12:08
Physical Exam
Physical Exam
Constitutional: No Acute Distress, Comfortable and Non-toxic
Eyes: Sclera Anicteric
Oral: No Thrush and No Ulcers
Cardiovascular: Regular Rate and S1/S2; Negative S3/S4
Pulmonary: Clear; Negative Wheezes, Rales or Rhonchi
Gastrointestinal: Soft, Non Tender and Non Distended
Skin: Warm and Dry
Wound: Other (Left axillary area/anterior chest wall with swelling and erythema. Area of fluctuance over cardiac device)
Neurological: Awake and Alert
Psychological: Calm
Lab / Diagnostic Study Results
07/16/24 06:28
07/16/24 06:28
Abs Immat Gran (auto) 0.0 10^3/uL (0-0.05) 07/16/24 06:28
Absolute Neuts (auto) 6.9 10^3/uL (1.4-6.5) H 07/16/24 06:28
Absolute Lymphs (auto) 0.3 10^3/uL (1.2-3.4) L 07/16/24 06:28
Absolute Monos (auto) 0.4 10^3/uL (0.1-0.6) 07/16/24 06:28
Absolute Basos (auto) 0.0 10^3/uL (0-0.2) 07/16/24 06:28
Immature Gran % 0.2 % (0-0.5) 07/16/24 06:28
Neutrophils % 86.3 % (42.2-75.2) H 07/16/24:28
Lymphocytes % 3.9 % (20.5-51.1) L 07/16/24 06:28
Monocytes % 4.4 % (1.7-9.3) 07/16/24 06:28
Eosinophils % 4.7 % (0-6) 07/16/24 06:28
Basophils % 0.5 % (0-2) 07/16/24 06:28
Lactic Acid 0.9 mmol/L (0.7-2.0) 07/16/24 06:28
Microbiology Results
Micro:
07/16/24 09:11 MRSA Screen - Pending
Nose
07/16/24 01:23 Blood Culture - Pending
Blood/Venous
07/15/24 17:29 Blood Culture - Pending
Blood/Venous
Assessment / Plan
Suspected pacer pocket infection/infected cardiac device (recurrent)
Normal white count with left shift
Renal insufficiency
Lactic acidosis
Diabetes mellitus type 2
Hypertension
CAD status post stent
Ischemic cardiomyopathy status post AICD placement (2002)
Ulcerative colitis on mesalamine
Hypothyroidism
Asthma
PMR
Herniated disc
Depression/anxiety
Recommendations:
Continue with current empiric antibiotics.
Case discussed with Interventional Cardiology; would recommend aspiration of the pocket site to establish microbiology to further guide antibiotic selection and potential de-escalation.
Await potential generator and lead extraction.
Monitor white count temperature curve.
Care Review
Plan reviewed with: Physician (Cardiology)
--- NOTE | 2024-07-16 16:18 | CM ---
spoke to pt in room, she is prev indep, lives with her husb in a 1 story home with no steps to enter. she denies any dme's. dc plan is prob IV Home antibx. cm to follow.
[2024-07-16] MEDS: LIPITOR PO (16:49)
--- NOTE | 2024-07-16 17:19 | W.PN.HOSP.TC ---
Today's Communication/Plan
-
continue current Tx
Assessment / Plan
Assessment / Plan
Infected ICD pacemaker pocket skin soft tissue infection:
Admit to IVU
At risk of sepsis but no evidence of such at this point
Obtain chest x-ray
Given IV aztreonam and IV vancomycin in the ER
Continue IV cefepime and vancomycin for now and further antibiotic depending on cultures.
Follow-up blood cultures
Cardiology, ID consulted--> follow-up their recommendations
Pain control
Hypertension:
Continue home antihypertensives
Monitor blood pressure and adjust medications accordingly
Hyperlipidemia:
Continue home statin
Diabetes mellitus type 2:
Diabetic diet
Insulin sliding scale
Continue Jardiance
Hold metformin in setting of infection
Hga1c 6.1%
glu 79-142
Chronic HFrEF:
Appears euvolemic on exam
Last echo on 12/29 EF 20 to 25% and stage II diastolic dysfunction
Continue oral diuretics
Continue beta-raulito
CAD:
Continue current anti-ischemic regimen
Continue cardiac monitoring
Hypothyroidism:
Continue levothyroxine home doses
Depression anxiety:
Continue antidepressant
CKD stage III:
Avoid nephrotoxic
Monitor renal function
GERD:
Continue H2 raulito
Obesity:
Lifestyle changes modifications warranted for weight loss
DVT prophylaxis:
Lovenox SQ
CODE STATUS:
Full code
reviewed with dgt at bedside
Anticipated Discharge: > 48 hours
Subjective/Interval History
-
Date of Service: July 16, 2024
Awake, alert. Still with left chest wall pain
Objective Data
-
Labs:
Laboratory Results
07/16/24
06:28
WBC 8.0
Hgb 10.6 L
Hct 32.9 L
Plt Count 155
Sodium 138
Potassium 4.9
Chloride 102
Carbon Dioxide 26
BUN 38 H
Creatinine 1.3 H
Glucose 126 H
Calcium 9.4
Vital Signs:
Vital Signs
Temp Pulse Resp BP Pulse Ox
97.8 F 91 16 120/60 96
07/16/24 12:08 07/16/24 12:15 07/16/24 12:08 07/16/24 12:08 07/16/24 12:08
I&O
07/15/24 07/16/24 07/17/24
06:59 06:59 06:59
Intake Total 120 / 120 400 / 400
Balance 120 / 120 400 / 400
Review of Systems
-
History Source: Patient and Family (dgt in room)
Constitutional: Denies Fever
EENT: Reports No Symptoms Reported
Respiratory: Reports No Symptoms
Cardiac: Reports Chest Pain (left chest wall pain)
Abdomen/GI: Reports No Symptoms; Denies Abdominal Pain
Physical Exam
-
General: Well Developed, Well Nourished and No Apparent Distress
HEENT: Normocephalic and Atraumatic
Respiratory: Clear to Auscultation; Negative Wheezes, Rales or Rhonchi
Cardiac: Regular Rhythm and S1/S2
Skin: Warm and Lesions (left upper chest wall with evidence of infection)
[2024-07-16 17:21] LABS: Glucose - Point of Care 129 mg/dl (70-99)
[2024-07-16] MEDS: LIPITOR 80 MG PO (21:46)
[2024-07-16 21:53] LABS: Glucose - Point of Care 159 mg/dl (70-99)
[2024-07-16] MEDS: APRESOLINE PO (23:07)
[2024-07-17] VITALS (7 sets, daily range): BP systolic 93–117; BP diastolic 51–74; BMI 29.4
[2024-07-17] MEDS: SYNTHROID 175 MCG PO (04:37)
[2024-07-17 04:38] LABS: % Basophils 0.5 % (0-2); % Immature Granulocytes 0.2 % (0-0.5); % Lymphocytes 9.4 % (20.5-51.1); % Monocytes 8.5 % (1.7-9.3); % Neutrophils 73.4 % (42.2-75.2); Absolute Eosinophils 0.5 10^3/uL (0-0.7); Absolute Lymphocytes 0.6 10^3/uL (1.2-3.4); Absolute Monocytes 0.5 10^3/uL (0.1-0.6); Absolute Neutrophils 4.4 10^3/uL (1.4-6.5); Hematocrit 34.5 % (37.0-47.0); Hemoglobin 11.5 g/dL (12.0-16.0); Mean Corp Hgb Conc. 33.3 g/dL (33.0-37.0); Mean Corpuscular Hgb 34.1 pg (27.0-31.0); Mean Corpuscular Volume 102.4 fL (81.0-99.0); Mean Platelet Volume 9.7 fL (7.4-10.4); Nucleated Red Blood Cells % 0 %; Platelet Count 158 10^3/uL (130-400); Red Blood Cell Count 3.37 10^6/uL (4.20-5.40); Red Cell Dist. Width 14.2 % (11.5-14.5)
[2024-07-17 05:09] LABS: Vancomycin Random 14.1 ug/ml
[2024-07-17 05:11] LABS: Blood Urea Nitrogen 34 mg/dl (7-17); Calcium 9.6 mg/dl (8.4-10.2); Carbon Dioxide 28 mmol/L (22-30); Chloride 100 mmol/L (98-107); Estimated Creatinine Clearance 34 ml/min; Glucose 141 mg/dl (70-99); Potassium 4.5 mmol/L (3.5-5.1); Sodium 137 mmol/L (135-145); eGFR 39.73
[2024-07-17 07:47] LABS: Glucose - Point of Care 129 mg/dl (70-99)
[2024-07-17] MEDS: NOVOLOG FLEXPEN-MODERATE RESISTANCE SC (08:48)
[2024-07-17] MEDS: STERILE WATER FOR INJECTION 10 ML IV ×2 (08:50→20:29)
[2024-07-17] MEDS: MAXIPIME 2000 MG IV ×2 (08:50→20:28)
[2024-07-17] MEDS: FLUSH (NSS) 1 FLUSH IV (08:51)
[2024-07-17] MEDS: COREG 12.5 MG PO ×2 (08:51→20:27)
[2024-07-17] MEDS: LASIX 40 MG PO (08:51)
[2024-07-17] MEDS: APRESOLINE PO (08:52)
[2024-07-17] MEDS: CYMBALTA DELAYED RELEASE 30 MG PO (08:52)
[2024-07-17] MEDS: PEPCID 20 MG PO (08:52)
--- NOTE | 2024-07-17 09:39 | W.PN.CD ---
Today's Communication / Plan
-
- Aspirate and gram stain / Cx
- Antibiotics
- Plan for hardware extraction on 07/20/24
Impression / Plan
-
73-year-old woman with chronic heart failure status post single-chamber ICD 2002 ([employer], status post generator change in 2010 and secondary to change in November 2023 (Dr. Ro at [facility]), coronary disease status post PCI with CHERELLE to LAD in
February 2016, PCI to RCA with stent in December 2016, inflammatory bowel disease (ulcerative colitis), PMR, history of DVT after cholecystectomy, asthma, hypothyroidism, capsulitis, history of partial bowel resection with perforated diverticulitis in 2004,
initially pocket washout on 12/20/23 who presented with her pocket infection and pus coming from the pocket.
Pocket infection
-Infected in November and December s/p debridement but infection is back.
-Pus in the pocket - copious amount.
- s/p drained, washout, debridement, relocation of the ICD generator 12/20/23
-Discussed wit ID - recommended aspiration for identification for buttermaker antibiotics.
-s/p Outpatient antibiotics - multiple drugs tried. Latest was Clinda and doxy. Failed oral meds - now inpatient.
-Started Aztreonam and Vanco and on Cefepime.
-s/p pocket revision, debridement, washout, relocation of the pocket after maximal attempt of sterilization of the wire and generator 12/20/23
-Hold Plavix and Farxiga
-Plan for hardware removal - laser lead extraction - planned for 07/20/24
- Possibility for subQ ICD placement given her high risk of infection.
Heart failure
-Primary prevention ICD in place
-Obtain echocardiogram.
-Look for any obvious vegetations.
-Last echo at our hospital 12/21/23 - : LVEF 20%, moderate MR - RCA and Circumflex territory severe hypokinesis, LAD hypokinesis.
-Currently on Coreg, hydralazine
-Did not tolerate ACEI. on hold with infection. Can retry once BP stable.
Coronary artery disease
-On Plavix, Coreg and Lipitor
-Hold Plavix for now.
DM
-Insulin for tighter glucose control at least while in patient
Physical Exam
Vital Signs/Labs
Vital Signs
Temp Pulse Resp BP Pulse Ox
99.1 F 89 16 93/55 98
07/17/24 07:02 07/17/24 08:52 07/17/24 07:02 07/17/24 08:52 07/17/24 07:02
07/16/24 07/17/24 07/18/24
06:59 06:59 06:59
Actual Weight 73.9 kg 72.8 kg
07/17/24 04:28
07/17/24 04:28
Physical Exam
Constitutional: No acute distress and Comfortable
EENT: Anicteric and Moist mucous membranes
Cardiovascular: Rhythm & rate is regular (sinus tachy) and JVD pressure is normal
Respiratory: Respiratory effort normal, Lungs clear to auscul. and Wheeze Absent
GI: Soft, Distention absent, Non tender and Normal bowel sounds
Neuro/Psych: Alert, Oriented and AO x 3
Data Reviewed
-
Date of Service: July 17, 2024
Medical Decision Making: Reviewed Test Results
EKG: Tracing Personally Visualized and interpreted
Labs: Labs Reviewed by me
Old Records: Reviewed
--- NOTE | 2024-07-17 09:44 | W.PN.UPDATE ---
Update Note
Progress Note Update
The ICD pocket was aspirated.
The skin was cleaned with chlorhexidine and clean / sterile area created. The skin was anesthetized using Lidocaine.
Using cook Needle, a total of 10 cc of pus aspirated from the pocket. The fluid is muddy and is pus mixed with blood. Thick pink cloudy fluid.
Sent for culture.
--- NOTE | 2024-07-17 09:52 | PTCARENOTE ---
Received patient this am, monitor shows NSR, BP 93/55, held hydralazine as ordered. LCW has reddened, warm to touch area at pacemaker site. Dr. Costa in room, draining site and sent drainage to lab.
--- NOTE | 2024-07-17 09:58 | PHA.VAN.FU ---
Vancomycin Assessment / Plan
- Assessment
Renal Function: SCR Increasing
WBC's are: WNL
In the past 24 hrs, patient has been: Afebrile
Concomitant Antimicrobials: cefepime
- Assessment - Therapeutic Drug Monitoring
Random Level: 14.1 - ~34 h post 2000mg dose ( 28 mg/kg)
- Dosing Plan
Continue: to dose vancomycin by level
Dosing by Level: Re-dose today (750 mg)
- Monitoring Plan
Random Level: 12/11 am
- Follow Up
Pharmacy will continue to follow.
Vancomycin Follow UP
- -
Patient Age: 74
Patient Sex: Female
Vancomycin Day #: 2
Indication: Skin And Soft Tissue (Infected ICD pacemaker pocket skin soft tissue infection)
Requesting Provider: Dr Arrieta/ Dr Solis
Pertinent Antimicrobial Allergies:
Sulfa (Sulfonamide Antibiotics) Allergy (Verified 07/15/24 13:13) Unknown
levofloxacin [From Levaquin] Allergy (Verified 07/15/24 13:13) Tongue Swelling
Height / Weight:
Height 5 ft 2 in
Actual Weight 72.8 kg
Pertinent Past Medical History: pacemaker
- Vital Signs / Lab Results
Temp Pulse Resp BP Pulse Ox
99.1 F 89 16 93/55 98
07/17/24 07:02 07/17/24 08:52 07/17/24 07:02 07/17/24 08:52 07/17/24 07:02
Lab Results - Hematology
07/15/24 07/16/24 07/17/24
15:10 06:28 04:28
WBC 7.3 8.0 6.0
Lab Results - Chemistry
07/15/24 07/16/24 07/17/24
15:10 06:28 04:28
BUN 36 H 38 H 34 H
Creatinine 1.3 H 1.3 H 1.4 H
Estimated Creat Clear 36 36 34
Albumin 4.2
07/15/24 07/16/24 07/16/24
15:10 01:23 06:28
Lactic Acid 2.8 H 2.1 H 0.9
Microbiology Results
07/16/24 01:23 Blood Culture - Preliminary
Blood/Venous No Growth in 24 hours- Final report to follow
07/15/24 17:29 Blood Culture - Preliminary
Blood/Venous No Growth in 24 hours- Final report to follow
Therapeutic Drug Monitoring
Random Vancomycin 14.1 ug/ml 07/17/24 04:21
--- NOTE | 2024-07-17 10:13 | PTCARENOTE ---
EKG and chest xray completed as ordered.
[2024-07-17] MEDS: VANCOCIN 150 IV (10:33)
[2024-07-17 12:40] LABS: Glucose - Point of Care 164 mg/dl (70-99)
[2024-07-17] MEDS: NOVOLOG FLEXPEN-MODERATE RESISTANCE 1 UNITS SC (12:41)
--- NOTE | 2024-07-17 13:41 | PTCARENOTE ---
Echo completed at bedside.
--- NOTE | 2024-07-17 14:08 | W.PN.ID1 ---
Date of Service
Date of Service: July 17, 2024
Today's Communication
Continue antibiotics.
Assessment / Plan
Suspected pacer pocket infection/infected cardiac device (recurrent)
Normal white count with left shift
Renal insufficiency
Lactic acidosis
Diabetes mellitus type 2
Hypertension
CAD status post stent
Ischemic cardiomyopathy status post AICD placement (2002)
Ulcerative colitis on mesalamine
Hypothyroidism
Asthma
PMR
Herniated disc
Depression/anxiety
Recommendations:
Continue with cefepime and vancomycin.
Monitor Vanco levels closely to prevent renal toxicity.
Area has been aspirated; await further culture data to guide antimicrobial selection and potential de-escalation.
Await potential generator and lead extraction.
Monitor white count temperature curve.
����������������������������������������������������������
Subjective / Review of Systems
Patient seen and examined. Reports ongoing pacer pocket area discomfort.
Review of Systems: No Fever and No Chills
Vital Signs / Physical Exam
Vital Signs
Vital Signs
Temp Pulse Resp BP Pulse Ox
98.3 F 78 18 117/68 96
07/17/24 11:56 07/17/24 11:56 07/17/24 11:56 07/17/24 11:56 07/17/24 11:56
Physical Exam
Constitutional: No Acute Distress, Comfortable and Non-toxic
Cardiovascular: Regular Rate and S1/S2
Pulmonary: Clear and Non Labored
Gastrointestinal: Soft and Non Tender
Wound: Other (Left ACW pacer pocket area with swelling and erythema, along with tenderness.)
Neurological: Awake and Alert
Psychological: Calm
Lines: Other (RUE midline no erythema)
Objective Data
Lab Data
Lab Results
07/17/24 04:28
07/17/24 04:28
Estimated Creat Clear 34 ml/min 07/17/24 04:28
Lactic Acid 0.9 mmol/L (0.7-2.0) 07/16/24 06:28
Total Bilirubin 0.5 mg/dl (0.2-1.3) 07/15/24 15:10
AST 26 U/L (14-36) 07/15/24 15:10
ALT 14 U/L (0-35) 07/15/24 15:10
Alkaline Phosphatase 100 U/L (38-126) 07/15/24 15:10
Most recent labs reviewed.
Micro Results:
07/17/24 09:38 Wound Culture - Pending
Chest - Left Gram Stain - Preliminary
07/16/24 01:23 Blood Culture - Preliminary
Blood/Venous No Growth in 24 hours- Final report to follow
07/15/24 17:29 Blood Culture - Preliminary
Blood/Venous No Growth in 24 hours- Final report to follow
07/16/24 09:11 MRSA Screen - Pending
Nose
--- NOTE | 2024-07-17 14:55 | W.PN.HOSP.TC ---
Today's Communication/Plan
-
resume Mesalamine
reviewed with nursing
Assessment / Plan
Assessment / Plan
Infected ICD pacemaker pocket skin soft tissue infection:
Admitted to IVU
At risk of sepsis but no evidence of such at this point
Obtain chest x-ray
Given IV aztreonam and IV vancomycin in the ER
Continue IV cefepime and vancomycin for now and further antibiotic depending on cultures.
Follow-up blood cultures. Underwent rainage of fluid from pocket 07/17, culture results pending
Cardiology, ID consulted--> follow-up their recommendations
Pain control
Hypertension:
Continue home antihypertensives
Monitor blood pressure and adjust medications accordingly
Hyperlipidemia:
Continue home statin
Ulcerative Colitis
pt takes Mesalamine 2.4 gms daily. Call placed to pharmacy to order
COPD
Pt on chronic Trelegy, requested be brought from home
Diabetes mellitus type 2:
Diabetic diet
Insulin sliding scale
Continue Jardiance
Hold metformin in setting of infection
Hga1c 6.1%
glu 79-142
Chronic HFrEF:
Appears euvolemic on exam
Last echo on 12/29 EF 20 to 25% and stage II diastolic dysfunction
Continue oral diuretics
Continue beta-raulito
CAD:
Continue current anti-ischemic regimen
Continue cardiac monitoring
Hypothyroidism:
Continue levothyroxine home doses
Depression anxiety:
Continue antidepressant
CKD stage III:
Avoid nephrotoxic
Monitor renal function
GERD:
Continue H2 raulito
Obesity:
Lifestyle changes modifications warranted for weight loss
DVT prophylaxis:
Lovenox SQ
CODE STATUS:
Full code
Anticipated Discharge: > 48 hours
Subjective/Interval History
-
Date of Service: July 17, 2024
Awake, alert
Objective Data
-
Labs:
Laboratory Results
07/17/24
04:28
WBC 6.0
Hgb 11.5 L
Hct 34.5 L
Plt Count 158
Sodium 137
Potassium 4.5
Chloride 100
Carbon Dioxide 28
BUN 34 H
Creatinine 1.4 H
Glucose 141 H
Calcium 9.6
Vital Signs:
Vital Signs
Temp Pulse Resp BP Pulse Ox
98.3 F 78 18 117/68 96
07/17/24 11:56 07/17/24 11:56 07/17/24 11:56 07/17/24 11:56 07/17/24 11:56
I&O
07/16/24 07/17/24 07/18/24
06:59 06:59 06:59
Intake Total 120 / 120 600 / 600 150 / 150
Balance 120 / 120 600 / 600 150 / 150
Review of Systems
-
History Source: Patient and Coordinated Provider
Constitutional: Reports No Symptoms; Denies Fever
EENT: Reports No Symptoms Reported
Respiratory: Reports No Symptoms
Cardiac: Reports No Symptoms
Abdomen/GI: Reports No Symptoms
Musculoskeletal: Reports No Symptoms
Physical Exam
-
General: Well Developed, Well Nourished and No Apparent Distress
HEENT: Normocephalic and Atraumatic
Respiratory: Clear to Auscultation; Negative Wheezes, Rales or Rhonchi
Cardiac: Regular Rhythm and S1/S2
Skin: Warm and Lesions (left upper chest wall with evidence of infection PPM pocket, covered with dressing)
Neuro: Awake, Alert and Oriented
[2024-07-17] MEDS: APRESOLINE 25 MG PO ×2 (16:14→22:27)
[2024-07-17] MEDS: ASACOL, DELZICOL DR 2400 MG PO (16:15)
[2024-07-17 16:49] LABS: Glucose - Point of Care 231 mg/dl (70-99)
[2024-07-17] MEDS: NOVOLOG FLEXPEN-MODERATE RESISTANCE 3 UNITS SC (16:49)
[2024-07-17 16:52] LABS: COVID-19 Antigen Negative (Negative)
[2024-07-17 22:10] LABS: Glucose - Point of Care 250 mg/dl (70-99)
[2024-07-17] MEDS: LIPITOR 80 MG PO (22:27)
[2024-07-18] VITALS (12 sets, daily range): BP systolic 78–137; BP diastolic 42–86; BMI 29.3
[2024-07-18] MEDS: TYLENOL 650 MG PO (05:18)
[2024-07-18] MEDS: SYNTHROID 175 MCG PO (05:19)
--- NOTE | 2024-07-18 05:57 | PTCARENOTE ---
large amount of bloody drainage noted on left chest dsg. Dressing changed with sterile gauze and washed with normal saline. Pt c/o wound pain 11/15. PRN Tylenol given.
[2024-07-18 06:45] LABS: Vancomycin Random 16.8 ug/ml
[2024-07-18] MEDS: ASACOL, DELZICOL DR 2400 MG PO (08:48)
[2024-07-18] MEDS: APRESOLINE 25 MG PO ×3 (08:49→22:27)
[2024-07-18] MEDS: LASIX 40 MG PO (08:49)
[2024-07-18] MEDS: CYMBALTA DELAYED RELEASE 30 MG PO (08:49)
[2024-07-18] MEDS: COREG 12.5 MG PO ×2 (08:49→20:33)
[2024-07-18] MEDS: FLUSH (NSS) 1 FLUSH IV ×2 (08:50→20:32)
[2024-07-18] MEDS: PEPCID 20 MG PO (08:50)
[2024-07-18] MEDS: MAXIPIME 2000 MG IV ×2 (08:50→20:32)
[2024-07-18] MEDS: STERILE WATER FOR INJECTION 10 ML IV ×2 (08:50→21:30)
--- NOTE | 2024-07-18 08:52 | W.PN.CD ---
Today's Communication / Plan
-
- Family meeting tomorrow
- Tentative plan for hardware removal on Tuesday.
- Possible SubQ ICD implant on Tuesday
Impression / Plan
-
73-year-old woman with chronic heart failure status post single-chamber ICD 2002 ([employer], status post generator change in 2010 and secondary to change in November 2023 (Dr. Ro at [facility]), coronary disease status post PCI with CHERELLE to LAD in
February 2016, PCI to RCA with stent in December 2016, inflammatory bowel disease (ulcerative colitis), PMR, history of DVT after cholecystectomy, asthma, hypothyroidism, capsulitis, history of partial bowel resection with perforated diverticulitis in 2004,
initially pocket washout on 12/20/23 who presented with her pocket infection and pus coming from the pocket.
Pocket infection
-Infected in November and December s/p debridement in December but infection is back - latency of 6 months.
-Pus in the pocket - copious amount - aspirated 07/17/24..
- s/p drained, washout, debridement, relocation of the ICD generator 12/20/23
-Discussed wit ID - recommended aspiration for identification for longterm antibiotics.
-s/p Outpatient antibiotics - multiple drugs tried. Latest was Clinda and doxy. Failed oral meds - now inpatient.
-S/p Aztreonam. now on Vanco and on Cefepime.
-s/p pocket revision, debridement, washout, relocation of the pocket after maximal attempt of sterilization of the wire and generator 12/20/23
- Wound aspirated 07/17/24 - WBC and pus noted. No active organism present. Has been on antibiotics for past few weeks.
-Hold Plavix and Farxiga
-Plan for hardware removal - laser lead extraction - planned for 07/20/24
- Possibility for subQ ICD placement given her high risk of infection.
Heart failure
-Primary prevention ICD in place
-Echocardiogram - 07/17/24: LVEF 20%- moderate MR. No obvious vegetations.
-Last echo at our hospital 12/21/23 - : LVEF 20%, moderate MR - RCA and Circumflex territory severe hypokinesis, LAD hypokinesis.
-Currently on Coreg, hydralazine
-Did not tolerate ACEI. on hold with infection. Can retry once BP stable.
Coronary artery disease
-On Plavix, Coreg and Lipitor
-Hold Plavix for now.
DM
-Insulin for tighter glucose control at least while in patient
Physical Exam
Vital Signs/Labs
Vital Signs
Temp Pulse Resp BP Pulse Ox
98.2 F 81 16 116/80 94
07/18/24 07:49 07/18/24 07:49 07/18/24 07:49 07/18/24 07:49 07/18/24 07:49
07/17/24 07/18/24 07/19/24
06:59 06:59 06:59
Actual Weight 72.6 kg
07/17/24 04:28
07/17/24 04:28
Physical Exam
Constitutional: No acute distress and Comfortable
EENT: Anicteric and Moist mucous membranes
Cardiovascular: Rhythm & rate is regular, Pedal edema is absent and JVD pressure is normal
Respiratory: Respiratory effort normal, Lungs clear to auscul. and Wheeze Absent
GI: Soft, Non tender and Normal bowel sounds
Neuro/Psych: Alert, Oriented, AO x 3 and Motor deficits absent
Other: Cardiac Device Site (Pus draining from the aspirate site. Bandage changed. )
Data Reviewed
-
Date of Service: July 18, 2024
Medical Decision Making: Reviewed Test Results and Tests Ordered
EKG: Tracing Personally Visualized and interpreted
Echo: Tracing Personally Visualized and interpreted
X-Ray/CT/US/MRI/NUC/PET: Image Personally Visualized and interpreted
Labs: Labs Reviewed by me
Old Records: Reviewed
[2024-07-18] MEDS: NOVOLOG FLEXPEN-MODERATE RESISTANCE SC ×2 (09:36→17:23)
[2024-07-18 09:38] LABS: Glucose - Point of Care 144 mg/dl (70-99)
--- NOTE | 2024-07-18 10:30 | PTCARENOTE ---
received patient this am sitting in chair, monitor shows NSR with PVC's, VSS, LCW dsg. intact, sore at site. SCD intact.
--- NOTE | 2024-07-18 10:47 | PHA.VAN.FU ---
Vancomycin Assessment / Plan
- Assessment
Renal Function: SCR Increasing
WBC's are: WNL
In the past 24 hrs, patient has been: Afebrile
Concomitant Antimicrobials: cefepime
- Assessment - Therapeutic Drug Monitoring
Random Level: 16.8 ~18 h post 750 mg dose
- Dosing Plan
Continue: to dose by level
Dosing by Level: Hold off on dosing today
- Monitoring Plan
Random Level: 07/19 06
- Follow Up
Pharmacy will continue to follow.
Vancomycin Follow UP
- -
Patient Age: 74
Patient Sex: Female
Vancomycin Day #: 3
Indication: Skin And Soft Tissue (Infected ICD pacemaker pocket skin soft tissue infection)
Requesting Provider: Dr Arrieta/ Dr Solis
Pertinent Antimicrobial Allergies:
Sulfa (Sulfonamide Antibiotics) Allergy (Verified 07/15/24 13:13) Unknown
levofloxacin [From Levaquin] Allergy (Verified 07/15/24 13:13) Tongue Swelling
Height / Weight:
Height 5 ft 2 in
Actual Weight 72.6 kg
Pertinent Past Medical History: pacemaker
- Vital Signs / Lab Results
Temp Pulse Resp BP Pulse Ox
98.2 F 85 16 116/80 94
07/18/24 07:49 07/18/24 08:49 07/18/24 07:49 07/18/24 08:49 07/18/24 07:49
Lab Results - Hematology
07/15/24 07/16/24 07/17/24
15:10 06:28 04:28
WBC 7.3 8.0 6.0
Lab Results - Chemistry
07/15/24 07/16/24 07/17/24
15:10 06:28 04:28
BUN 36 H 38 H 34 H
Creatinine 1.3 H 1.3 H 1.4 H
Estimated Creat Clear 36 36 34
Albumin 4.2
07/15/24 07/16/24 07/16/24
15:10 01:23 06:28
Lactic Acid 2.8 H 2.1 H 0.9
Microbiology Results
07/17/24 09:38 Wound Culture - Preliminary
Chest - Left Gram Stain - Preliminary
07/16/24 01:23 Blood Culture - Preliminary
Blood/Venous No Growth in 48 hours- Final report to follow
07/15/24 17:29 Blood Culture - Preliminary
Blood/Venous No Growth in 48 hours- Final report to follow
07/16/24 09:11 MRSA Screen - Final
Nose No Methicillin Resistant Staphylococcus aureus isolated.
Therapeutic Drug Monitoring
Random Vancomycin 16.8 ug/ml 07/18/24 05:41
--- NOTE | 2024-07-18 10:50 | W.PN.ID1 ---
Date of Service
Date of Service: July 18, 2024
Today's Communication
Continue antibiotics.
Assessment / Plan
Suspected pacer pocket infection/infected cardiac device (recurrent)
Normal white count with left shift
Renal insufficiency
Lactic acidosis
Diabetes mellitus type 2
Hypertension
CAD status post stent
Ischemic cardiomyopathy status post AICD placement (2002)
Ulcerative colitis on mesalamine
Hypothyroidism
Asthma
PMR
Herniated disc
Depression/anxiety
Recommendations:
Continue with cefepime and vancomycin.
Monitor Vanco levels closely to prevent renal toxicity.
Area has been aspirated; await further culture data to guide antimicrobial selection and potential de-escalation.
Await potential generator and lead extraction. (Tentatively Tuesday)
Monitor white count temperature curve.
����������������������������������������������������������
Chief Complaint
-: Other (Pacer pocket infection)
Subjective / Review of Systems
Patient seen and examined. Reports drainage from the pocket site overnight. No fevers or chills.
Vital Signs / Physical Exam
Vital Signs
Vital Signs
Temp Pulse Resp BP Pulse Ox
98.2 F 85 16 116/80 94
07/18/24 07:49 07/18/24 08:49 07/18/24 07:49 07/18/24 08:49 07/18/24 07:49
Physical Exam
Constitutional: No Acute Distress, Comfortable and Non-toxic
Cardiovascular: Regular Rate and S1/S2
Pulmonary: Clear and Non Labored
Gastrointestinal: Soft and Non Tender
Wound: Other (Left ACW pacer pocket area with swelling and erythema, along with tenderness. Some drainage.)
Neurological: Awake and Alert
Psychological: Calm
Lines: Other (RUE midline no erythema)
Objective Data
Lab Data
Lab Results
07/17/24 04:28
07/17/24 04:28
Estimated Creat Clear 34 ml/min 07/17/24 04:28
Lactic Acid 0.9 mmol/L (0.7-2.0) 07/16/24 06:28
Total Bilirubin 0.5 mg/dl (0.2-1.3) 07/15/24 15:10
AST 26 U/L (14-36) 07/15/24 15:10
ALT 14 U/L (0-35) 07/15/24 15:10
Alkaline Phosphatase 100 U/L (38-126) 07/15/24 15:10
Most recent labs reviewed.
Micro Results:
07/17/24 09:38 Wound Culture - Preliminary
Chest - Left Gram Stain - Preliminary
07/16/24 01:23 Blood Culture - Preliminary
Blood/Venous No Growth in 48 hours- Final report to follow
07/15/24 17:29 Blood Culture - Preliminary
Blood/Venous No Growth in 48 hours- Final report to follow
07/16/24 09:11 MRSA Screen - Final
Nose No Methicillin Resistant Staphylococcus aureus isolated.
--- NOTE | 2024-07-18 12:18 | PTCARENOTE ---
patient called out saying that she smells a foul odor from LCW, changed dsg. blood, clots, leaking from site, cleansed with saline, 4x4's, abd. placed and paper tape applied. I didnot smell any odor.
[2024-07-18 12:25] LABS: Glucose - Point of Care 276 mg/dl (70-99)
[2024-07-18] MEDS: NOVOLOG FLEXPEN-MODERATE RESISTANCE 5 UNITS SC (12:28)
[2024-07-18 17:22] LABS: Glucose - Point of Care 111 mg/dl (70-99)
--- NOTE | 2024-07-18 19:19 | W.PN.HOSP.TC ---
Today's Communication/Plan
-
recheck labs in AM
continue current Abx
Assessment / Plan
Assessment / Plan
Infected ICD pacemaker pocket skin soft tissue infection:
Admitted to IVU
At risk of sepsis but no evidence of such at this point
Obtain chest x-ray
Given IV aztreonam and IV vancomycin in the ER
Continue IV cefepime and vancomycin for now and further antibiotic depending on cultures.
Follow-up blood cultures. Underwent drainage of fluid from pocket 07/17, culture results pending
Cardiology, ID consulted--> follow-up their recommendations
Pain control
For hardware removal on 07/20
Hypertension:
Continue home antihypertensives
Monitor blood pressure and adjust medications accordingly
Hyperlipidemia:
Continue home statin
Ulcerative Colitis
pt takes Mesalamine 2.4 gms daily. Resumed
COPD
Pt on chronic Trelegy, requested be brought from home
Diabetes mellitus type 2:
Diabetic diet
Insulin sliding scale
Continue Jardiance
Hold metformin in setting of infection
Hga1c 6.1%
glu 79-142
Chronic HFrEF:
Appears euvolemic on exam
Last echo on 12/29 EF 20 to 25% and stage II diastolic dysfunction
Continue oral diuretics
Continue beta-raulito
CAD:
Continue current anti-ischemic regimen
Continue cardiac monitoring
Hypothyroidism:
Continue levothyroxine home doses
Depression anxiety:
Continue antidepressant
CKD stage III:
Avoid nephrotoxic
Monitor renal function
GERD:
Continue H2 raulito
Obesity:
Lifestyle changes modifications warranted for weight loss
DVT prophylaxis:
Lovenox SQ
CODE STATUS:
Full code
Anticipated Discharge: > 48 hours
Subjective/Interval History
-
Date of Service: July 18, 2024
In good spirits
Objective Data
-
Vital Signs:
Vital Signs
Temp Pulse Resp BP Pulse Ox
97.9 F 78 16 137/86 92
07/18/24 16:24 07/18/24 17:45 07/18/24 16:24 07/18/24 16:25 07/18/24 14:48
I&O
07/17/24 07/18/24 07/19/24
06:59 06:59 06:59
Intake Total 600 / 600 300 / 300 480 / 480
Balance 600 / 600 300 / 300 480 / 480
Review of Systems
-
History Source: Patient and Coordinated Provider
Constitutional: Reports No Symptoms; Denies Fever
EENT: Reports No Symptoms Reported
Respiratory: Reports No Symptoms
Cardiac: Reports No Symptoms and Chest Pain (chest wal area in region of infected site remains very tender)
Abdomen/GI: Reports No Symptoms
Musculoskeletal: Reports No Symptoms
Physical Exam
-
General: Well Developed, Well Nourished and No Apparent Distress
HEENT: Normocephalic and Atraumatic
Respiratory: Clear to Auscultation; Negative Wheezes, Rales or Rhonchi
Cardiac: Regular Rhythm and S1/S2
Skin: Warm and Lesions (left upper chest wall with evidence of infection PPM pocket, covered with dressing)
Neuro: Awake, Alert and Oriented
--- NOTE | 2024-07-18 19:53 | PTCARENOTE ---
Received patient at change of shift. Patient sitting in chair, awake, alert, and oriented with family bedside. BP 109/59, NSR w/ PVCs 75-80, 96% on room air. Patient denies any chest pain. Discussed plan of care. Patient verbalized understanding.
Call latham within reach.
[2024-07-18 21:34] LABS: Glucose - Point of Care 150 mg/dl (70-99)
[2024-07-18] MEDS: LIPITOR 80 MG PO (22:27)
[2024-07-19] VITALS (13 sets, daily range): BP systolic 68–132; BP diastolic 52–90; BMI 29.3
--- NOTE | 2024-07-19 03:44 | DOWNTIME ---
There was a [employer] Downtime on 07/19/2024 from 0200 to 07/19/2024 at 0325 . Downtime documentation of patient's care, including medication administrations, has been reconciled in the electronic record per guidelines. Refer to the
patient's paper chart under the miscellaneous tab to see printed paper medication records and downtime forms.
[2024-07-19 05:52] LABS: % Eosinophils 8.2 % (0-6); % Immature Granulocytes 0.3 % (0-0.5); % Lymphocytes 16.3 % (20.5-51.1); % Neutrophils 63.2 % (42.2-75.2); Absolute Basophils 0.1 10^3/uL (0-0.2); Absolute Eosinophils 0.5 10^3/uL (0-0.7); Absolute Monocytes 0.7 10^3/uL (0.1-0.6); Absolute Neutrophils 3.8 10^3/uL (1.4-6.5); Hematocrit 36.7 % (37.0-47.0); Mean Corp Hgb Conc. 32.7 g/dL (33.0-37.0); Mean Corpuscular Hgb 34.2 pg (27.0-31.0); Mean Corpuscular Volume 104.6 fL (81.0-99.0); Mean Platelet Volume 10.2 fL (7.4-10.4); Nucleated Red Blood Cells % 0 %; Platelet Count 185 10^3/uL (130-400); Red Blood Cell Count 3.51 10^6/uL (4.20-5.40)
[2024-07-19 06:24] LABS: Vancomycin Random 13.4 ug/ml
[2024-07-19 07:14] LABS: Blood Urea Nitrogen 38 mg/dl (7-17); Calcium 9.9 mg/dl (8.4-10.2); Carbon Dioxide 28 mmol/L (22-30); Chloride 95 mmol/L (98-107); Estimated Creatinine Clearance 33 ml/min; Glucose 142 mg/dl (70-99); Sodium 136 mmol/L (135-145); eGFR 39.73
--- NOTE | 2024-07-19 07:59 | PHA.VAN.FU ---
Vancomycin Assessment / Plan
- Assessment
Renal Function: Stable
WBC's are: WNL
In the past 24 hrs, patient has been: Afebrile
Concomitant Antimicrobials: Cefepime
- Assessment - Therapeutic Drug Monitoring
Random Level: 13.4
Calculated ke: 0.0096
Calculated half life (H): 72.5
PK calculated using levels from 07/18 and 07/19 (post 750 mg dose 07/17) with no doses in between
- Dosing Plan
Continue: to dose by level
Dosing by Level: Re-dose today (750 mg)
- Monitoring Plan
Random Level: 12/14 am
- Follow Up
Pharmacy will continue to follow.
Vancomycin Follow UP
- -
Patient Age: 74
Patient Sex: Female
Vancomycin Day #: 4
Indication: Skin And Soft Tissue (Infected ICD pacemaker pocket skin soft tissue infection)
Requesting Provider: Dr Arrieta/ Dr Solis
Pertinent Antimicrobial Allergies:
Sulfa (Sulfonamide Antibiotics) Allergy (Verified 07/15/24 13:13) Unknown
levofloxacin [From Levaquin] Allergy (Verified 07/15/24 13:13) Tongue Swelling
Height / Weight:
Height 5 ft 2 in
Actual Weight 72.5 kg
Pertinent Past Medical History: pacemaker
- Vital Signs / Lab Results
Temp Pulse Resp BP Pulse Ox
97.9 F 80 14 110/55 94
07/19/24 04:44 07/19/24 04:44 07/19/24 04:44 07/19/24 04:44 07/19/24 04:44
Lab Results - Hematology
07/17/24 07/19/24
04:28 05:20
WBC 6.0 6.0
Lab Results - Chemistry
07/17/24 07/19/24
04:28 05:20
BUN 34 H 38 H
Creatinine 1.4 H 1.4 H
Estimated Creat Clear 34 33
Microbiology Results
07/16/24 01:23 Blood Culture - Preliminary
Blood/Venous No Growth in 72 hours- Final report to follow
07/15/24 17:29 Blood Culture - Preliminary
Blood/Venous No Growth in 72 hours- Final report to follow
07/17/24 09:38 Wound Culture - Preliminary
Chest - Left Gram Stain - Preliminary
07/16/24 09:11 MRSA Screen - Final
Nose No Methicillin Resistant Staphylococcus aureus isolated.
Therapeutic Drug Monitoring
Random Vancomycin 13.4 ug/ml 07/19/24 05:20
[2024-07-19 08:09] LABS: Glucose - Point of Care 142 mg/dl (70-99)
[2024-07-19] MEDS: SYNTHROID 175 MCG PO (08:17)
[2024-07-19] MEDS: LASIX 40 MG PO (08:17)
[2024-07-19] MEDS: PEPCID 20 MG PO (08:17)
[2024-07-19] MEDS: CYMBALTA DELAYED RELEASE 30 MG PO (08:17)
[2024-07-19] MEDS: COREG 12.5 MG PO ×2 (08:17→20:49)
[2024-07-19] MEDS: STERILE WATER FOR INJECTION 10 ML IV ×2 (08:18→20:50)
[2024-07-19] MEDS: MAXIPIME 2000 MG IV ×2 (08:18→20:50)
[2024-07-19] MEDS: APRESOLINE 25 MG PO ×3 (08:18→22:27)
[2024-07-19] MEDS: ASACOL, DELZICOL DR 2400 MG PO (08:18)
[2024-07-19] MEDS: FLUSH (NSS) 2 FLUSH IV ×2 (08:21→08:42)
--- NOTE | 2024-07-19 08:25 | W.PN.CD ---
Today's Communication / Plan
-
- Plan for extraction in AM
Impression / Plan
-
73-year-old woman with chronic heart failure status post single-chamber ICD 2002 ([employer], status post generator change in 2010 and secondary to change in November 2023 (Dr. Ro at [facility]), coronary disease status post PCI with CHERELLE to LAD in
February 2016, PCI to RCA with stent in December 2016, inflammatory bowel disease (ulcerative colitis), PMR, history of DVT after cholecystectomy, asthma, hypothyroidism, capsulitis, history of partial bowel resection with perforated diverticulitis in 2004,
initially pocket washout on 12/20/23 who presented with her pocket infection and pus coming from the pocket.
Pocket infection
-Infected in November and December s/p debridement in December but infection is back - latency of 6 months.
-Pus in the pocket - copious amount - aspirated 07/17/24.
- s/p drained, washout, debridement, relocation of the ICD generator 12/20/23
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
-s/p Outpatient antibiotics - multiple drugs tried. Latest was Clinda and doxy. Failed oral meds - now inpatient.
-S/p Aztreonam. now on Vanco and on Cefepime.
-s/p pocket revision, debridement, washout, relocation of the pocket after maximal attempt of sterilization of the wire and generator 12/20/23
- Wound aspirated 07/17/24 - WBC and pus noted. No active organism present. Has been on antibiotics for past few weeks.
-Hold Plavix and Farxiga
-Plan for hardware removal - laser lead extraction - planned for tomorrow - NPO after midnight.
- Possibility for subQ ICD placement given her high risk of infection on Tuesday.
Heart failure
-Primary prevention ICD in place
-Echocardiogram - 07/17/24: LVEF 20%- moderate MR. No obvious vegetations.
-Last echo at our hospital 12/21/23 - : LVEF 20%, moderate MR - RCA and Circumflex territory severe hypokinesis, LAD hypokinesis.
-Currently on Coreg, hydralazine
-Did not tolerate ACEI. on hold with infection. Can retry once BP stable.
Coronary artery disease
-On Plavix, Coreg and Lipitor
-Hold Plavix for now.
DM
-Insulin for tighter glucose control at least while in patient
Physical Exam
Vital Signs/Labs
Vital Signs
Temp Pulse Resp BP Pulse Ox
98.8 F 78 20 102/73 96
07/19/24 08:09 07/19/24 08:04 07/19/24 08:09 07/19/24 08:04 07/19/24 08:09
07/18/24 07/19/24 07/20/24
06:59 06:59 06:59
Actual Weight 72.6 kg 72.5 kg
07/19/24 05:20
07/19/24 05:20
Physical Exam
Constitutional: No acute distress and Comfortable
EENT: Anicteric and Moist mucous membranes
Cardiovascular: Rhythm & rate is regular, Pedal edema is absent and JVD pressure is normal
Respiratory: Respiratory effort normal and Lungs clear to auscul.
GI: Soft, Non tender and Normal bowel sounds
Other: Cardiac Device Site (oozing pus)
Data Reviewed
-
Date of Service: July 19, 2024
Medical Decision Making: Reviewed Test Results
EKG: Tracing Personally Visualized and interpreted
Labs: Labs Reviewed by me
Old Records: Reviewed
[2024-07-19] MEDS: NOVOLOG FLEXPEN-MODERATE RESISTANCE SC ×2 (08:37→17:30)
[2024-07-19] MEDS: VANCOCIN 150 IV (08:40)
--- NOTE | 2024-07-19 08:48 | PTCARENOTE ---
The patient is aaox3, vss, 96% on RA. NSR with a BBB is noted on the monitor. Her left chest wall dressing is c/d/i. She has no c/o pain.
[2024-07-19 11:09] LABS: Glucose - Point of Care 249 mg/dl (70-99)
--- NOTE | 2024-07-19 11:30 | PTCARENOTE ---
The patient was transferred to room 2259. She ambulated in the velásquez to her new room without difficulty.
--- NOTE | 2024-07-19 12:01 | PTCARENOTE ---
Patient received from IVU in anticipation of procedure tomorrow. NSR via cm, SaO2 @97% on RA. LCW procedural site cdi, patient denies pain at this time. Patient updated to plan of care, in agreement. See work list for full assessment and
interventions performed.
[2024-07-19] MEDS: NOVOLOG FLEXPEN-MODERATE RESISTANCE 3 UNITS SC (12:34)
--- NOTE | 2024-07-19 13:35 | W.PN.HOSP.TC ---
Addendum entered and electronically signed by Zbigniew Vazquez MD 07/19/24 15:33:
contacted by infection control, pt had Covid exposure and needs Covid test today and 07/21
Original Note:
Today's Communication/Plan
-
for hardware removal tomorrow
Assessment / Plan
Assessment / Plan
Infected ICD pacemaker pocket skin soft tissue infection:
Admitted to IVU
At risk of sepsis but no evidence of such at this point
07/17 chest x-ray: Left chest wall defibrillator with lead tip over the right ventricle.
There is an irregular curvilinear metallic density projecting over the left anterior chest wall, anterior to the left chest wall battery pack, new from chest radiograph of July 16 2024. ICD pocket was reportedly aspirated earlier today. In
discussion with Dr. Costa, there is dressing material at the site of aspiration, which likely has radiopaque markings. Continued follow-up may be helpful.
The lungs appear clear. No evidence for pulmonary edema or pleural effusion.
Given IV aztreonam and IV vancomycin in the ER
Continue IV cefepime and vancomycin for now and further antibiotic depending on cultures.
Follow-up blood cultures. Underwent drainage of fluid from pocket 07/17, culture results pending
Cardiology, ID consulted--> follow-up their recommendations
Pain control
For hardware removal on 07/20
Hypertension:
Continue home antihypertensives
Monitor blood pressure and adjust medications accordingly
Hyperlipidemia:
Continue home statin, pt takes at night, requesting time be changed
Ulcerative Colitis
pt takes Mesalamine 2.4 gms daily. Resumed
COPD
Pt on chronic Trelegy, requested be brought from home
Diabetes mellitus type 2:
Diabetic diet, pt is requesting change diet to regular
Insulin sliding scale
Continue Jardiance
Hold metformin in setting of infection
Hga1c 6.1%
glu 79-142
Chronic HFrEF:
Appears euvolemic on exam
Last echo on 12/29 EF 20 to 25% and stage II diastolic dysfunction
Continue oral diuretics
Continue beta-raulito
CAD:
Continue current anti-ischemic regimen
Continue cardiac monitoring
Hypothyroidism:
Continue levothyroxine home doses
Depression anxiety:
Continue antidepressant
CKD stage III:
Avoid nephrotoxic
Monitor renal function
GERD:
Continue H2 raulito
Obesity:
Lifestyle changes modifications warranted for weight loss
DVT prophylaxis:
Lovenox SQ
CODE STATUS:
Full code
Anticipated Discharge: > 48 hours
Subjective/Interval History
-
Date of Service: July 19, 2024
In good spirits
Objective Data
-
Labs:
Laboratory Results
07/19/24
05:20
WBC 6.0
Hgb 12.0
Hct 36.7 L
Plt Count 185
Sodium 136
Potassium 4.0
Chloride 95 L
Carbon Dioxide 28
BUN 38 H
Creatinine 1.4 H
Glucose 142 H
Calcium 9.9
Vital Signs:
Vital Signs
Temp Pulse Resp BP Pulse Ox
98.1 F 86 17 111/72 97
07/19/24 11:35 07/19/24 12:00 07/19/24 11:35 07/19/24 11:28 07/19/24 11:52
I&O
07/18/24 07/19/24 07/20/24
06:59 06:59 06:59
Intake Total 300 / 300 480 / 480 400 / 400
Balance 300 / 300 480 / 480 400 / 400
Review of Systems
-
History Source: Patient and Coordinated Provider
Constitutional: Reports No Symptoms; Denies Fever
EENT: Reports No Symptoms Reported
Respiratory: Reports No Symptoms
Cardiac: Reports No Symptoms and Chest Pain (chest wal area in region of infected site remains very tender)
Abdomen/GI: Reports No Symptoms
Musculoskeletal: Reports No Symptoms
Physical Exam
-
General: Well Developed, Well Nourished and No Apparent Distress
HEENT: Normocephalic and Atraumatic
Respiratory: Clear to Auscultation; Negative Wheezes, Rales or Rhonchi
Cardiac: Regular Rhythm and S1/S2
Skin: Warm and Lesions (left upper chest wall with evidence of infection PPM pocket, covered with dressing)
Neuro: Awake, Alert and Oriented
--- NOTE | 2024-07-19 14:06 | W.PN.ID1 ---
Date of Service
Date of Service: July 19, 2024
Today's Communication
Continue abx.
Assessment / Plan
Suspected pacer pocket infection/infected cardiac device (recurrent)
Normal white count with left shift
Renal insufficiency
Lactic acidosis
Diabetes mellitus type 2
Hypertension
CAD status post stent
Ischemic cardiomyopathy status post AICD placement (2002)
Ulcerative colitis on mesalamine
Hypothyroidism
Asthma
PMR
Herniated disc
Depression/anxiety
Recommendations:
Continue with cefepime and vancomycin.
Monitor Vanco levels closely to prevent renal toxicity.
Area has been aspirated; cultures currently with GNR's
Await potential generator and lead extraction. (Tentatively tomorrow) Please check deep pocket cultures also.
Monitor white count temperature curve.
Further abx selection based upon pending cultures.
����������������������������������������������������������
Chief Complaint
-: Other (Pacer pocket infection)
Subjective / Review of Systems
Review of Systems: No Fever and No Chills
Vital Signs / Physical Exam
Vital Signs
Vital Signs
Temp Pulse Resp BP Pulse Ox
98.1 F 86 17 111/72 97
07/19/24 11:35 07/19/24 12:00 07/19/24 11:35 07/19/24 11:28 07/19/24 11:52
Physical Exam
Constitutional: No Acute Distress, Comfortable and Non-toxic
Cardiovascular: Regular Rate and S1/S2
Pulmonary: Clear and Non Labored
Gastrointestinal: Soft and Non Tender
Wound: Other (Left ACW pacer pocket area with swelling and erythema, along with tenderness. Dressing in place)
Neurological: Awake and Alert
Psychological: Calm
Lines: Other (RUE midline no erythema)
Objective Data
Lab Data
Lab Results
07/19/24 05:20
07/19/24 05:20
Estimated Creat Clear 33 ml/min 07/19/24 05:20
Lactic Acid 0.9 mmol/L (0.7-2.0) 07/16/24 06:28
Total Bilirubin 0.5 mg/dl (0.2-1.3) 07/15/24 15:10
AST 26 U/L (14-36) 07/15/24 15:10
ALT 14 U/L (0-35) 07/15/24 15:10
Alkaline Phosphatase 100 U/L (38-126) 07/15/24 15:10
Most recent labs reviewed.
Micro Results:
07/17/24 09:38 Wound Culture - Preliminary
Chest - Left Gram negative bacilli
Gram Stain - Preliminary
07/16/24 01:23 Blood Culture - Preliminary
Blood/Venous No Growth in 72 hours- Final report to follow
07/15/24 17:29 Blood Culture - Preliminary
Blood/Venous No Growth in 72 hours- Final report to follow
07/16/24 09:11 MRSA Screen - Final
Nose No Methicillin Resistant Staphylococcus aureus isolated.
--- NOTE | 2024-07-19 16:19 | PTCARENOTE ---
VS obtained, stable. Patient resting comfortably, denies pain. Perusing menu for dinner.
[2024-07-19 16:42] LABS: COVID-19 Antigen Negative (Negative)
[2024-07-19 17:15] LABS: Glucose - Point of Care 141 mg/dl (70-99)
--- NOTE | 2024-07-19 20:30 | PTCARENOTE ---
Patient received OOB in chair watching television. Patient A+A+Ox3. No neurological deficits noted. No c/o headache, dizziness or lightheadedness. Afebrile. Room air. SpO2 99%. Sinus Rhythm, BBC, PAC's, PVC's. Heart rate 70-80's. Blood
pressure 129/66 (81). Left anterior chest wall with dressing. No c/o chest pain, pressure or discomfort. Abdomen soft, round, nondistended. Normoactive bowel sounds. Bowel and bladder within normal limits. Positive, palpable pulses. Patient
clipped and prepped per protocol. Patient given 4% Chlorhexidine bath. Linens changed. Patient resting in bed watching television. Assessment as documented.
[2024-07-19] MEDS: LIPITOR 80 MG PO (22:27)
[2024-07-20] VITALS (19 sets, daily range): BP systolic 97–132; BP diastolic 53–102; BMI 29.3
--- NOTE | 2024-07-20 00:15 | PTCARENOTE ---
Patient NPO after midnight. Patient sleeping without difficulty. Assessment/Interventions as documented.
--- NOTE | 2024-07-20 04:45 | PTCARENOTE ---
Patient A+A+Ox3. No neurological deficits noted. Patient ambulated to bathroom to void. Back to bed. Standing scale weight 72.5 kg. No c/o pain or discomfort. CHG bath in AM. Assessment/Interventions as documented.
[2024-07-20] MEDS: BACTROBAN 2% OINTMENT 1 APPLIC NASAL (06:10)
[2024-07-20 06:22] LABS: Glucose - Point of Care 151 mg/dl (70-99)
[2024-07-20] MEDS: NOVOLOG FLEXPEN-MODERATE RESISTANCE SC ×2 (07:39→11:36)
[2024-07-20] MEDS: SYNTHROID PO (08:08)
--- NOTE | 2024-07-20 08:17 | W.PN.ID1 ---
Date of Service
Date of Service: July 20, 2024
Today's Communication
Continue antibiotics.
Assessment / Plan
Suspected pacer pocket infection/infected cardiac device (recurrent)
Normal white count with left shift
Renal insufficiency
Lactic acidosis
Diabetes mellitus type 2
Hypertension
CAD status post stent
Ischemic cardiomyopathy status post AICD placement (2002)
Ulcerative colitis on mesalamine
Hypothyroidism
Asthma
PMR
Herniated disc
Depression/anxiety
Recommendations:
Continue with cefepime and vancomycin.
Monitor Vanco levels closely to prevent renal toxicity.
Area has been aspirated; cultures currently with GNR's
Await potential generator and lead extraction. (Tentatively today) Please check deep pocket cultures also.
Monitor white count temperature curve.
Further abx selection based upon pending cultures.
����������������������������������������������������������
Chief Complaint
-: Other (Pacer pocket infection)
Subjective / Review of Systems
Review of Systems: No Fever and No Chills
Vital Signs / Physical Exam
Vital Signs
Vital Signs
Temp Pulse Resp BP Pulse Ox
98.1 F 81 17 97/61 97
07/20/24 07:55 07/20/24 08:02 07/20/24 07:55 07/20/24 04:35 07/20/24 07:55
Physical Exam
Constitutional: No Acute Distress, Comfortable and Non-toxic
Cardiovascular: Regular Rate
Pulmonary: Non Labored
Gastrointestinal: Soft and Non Distended
Wound: Other (Left ACW pacer pocket area with dressing in place)
Neurological: Awake and Alert
Psychological: Calm
Objective Data
Lab Data
Lab Results
07/19/24 05:20
07/19/24 05:20
Estimated Creat Clear 33 ml/min 07/19/24 05:20
Lactic Acid 0.9 mmol/L (0.7-2.0) 07/16/24 06:28
Total Bilirubin 0.5 mg/dl (0.2-1.3) 07/15/24 15:10
AST 26 U/L (14-36) 07/15/24 15:10
ALT 14 U/L (0-35) 07/15/24 15:10
Alkaline Phosphatase 100 U/L (38-126) 07/15/24 15:10
Most recent labs reviewed.
Micro Results:
07/17/24 09:38 Wound Culture - Preliminary
Chest - Left Gram negative bacilli
Gram Stain - Preliminary
07/16/24 01:23 Blood Culture - Preliminary
Blood/Venous No Growth in 4 days- Final report to follow
07/15/24 17:29 Blood Culture - Preliminary
Blood/Venous No Growth in 4 days- Final report to follow
07/16/24 09:11 MRSA Screen - Final
Nose No Methicillin Resistant Staphylococcus aureus isolated.
Care Review
Plan reviewed with: Physician (Hospitalist)
--- NOTE | 2024-07-20 08:20 | W.PN.HOSP.TC ---
Today's Communication/Plan
-
Hardware removal with laser lead extraction today
Plavix and Farxiga on hold
Assessment / Plan
Assessment / Plan
Infected ICD pacemaker pocket skin soft tissue infection:
Admitted to IVU
At risk of sepsis but no evidence of such at this point
07/17 chest x-ray: Left chest wall defibrillator with lead tip over the right ventricle.
There is an irregular curvilinear metallic density projecting over the left anterior chest wall, anterior to the left chest wall battery pack, new from chest radiograph of July 16 2024. ICD pocket was reportedly aspirated earlier today. In
discussion with Dr. Costa, there is dressing material at the site of aspiration, which likely has radiopaque markings. Continued follow-up may be helpful.
The lungs appear clear. No evidence for pulmonary edema or pleural effusion.
Given IV aztreonam and IV vancomycin in the ER
Continue IV cefepime and vancomycin for now and further antibiotic depending on cultures.
Follow-up blood cultures. Underwent drainage of fluid from pocket 07/17, culture results pending
Cardiology, ID consulted--> follow-up their recommendations
Pain control
For hardware removal on 07/20
Hypertension:
Continue home antihypertensives
Monitor blood pressure and adjust medications accordingly
Hyperlipidemia:
Continue home statin, pt takes at night, requesting time be changed
Ulcerative Colitis
pt takes Mesalamine 2.4 gms daily. Resumed
COPD
Pt on chronic Trelegy, requested be brought from home
Diabetes mellitus type 2:
Diabetic diet, pt is requesting change diet to regular
Insulin sliding scale
Continue Jardiance
Hold metformin in setting of infection
Hga1c 6.1%
glu 79-142
07/20 glu 151
on moderate SSI, not on a standing dose
Chronic HFrEF:
Appears euvolemic on exam
Last echo on 12/29 EF 20 to 25% and stage II diastolic dysfunction
Continue oral diuretics
Continue beta-raulito
CAD:
Continue current anti-ischemic regimen
Continue cardiac monitoring
Hypothyroidism:
Continue levothyroxine home doses
Depression anxiety:
Continue antidepressant
CKD stage III:
Avoid nephrotoxic
Monitor renal function
GERD:
Continue H2 raulito
Obesity:
Lifestyle changes modifications warranted for weight loss
DVT prophylaxis:
Lovenox SQ
CODE STATUS:
Full code
Anticipated Discharge: > 48 hours
Subjective/Interval History
-
Date of Service: July 20, 2024
Awake, alert
Objective Data
-
Vital Signs:
Vital Signs
Temp Pulse Resp BP Pulse Ox
98.1 F 81 17 97/61 97
07/20/24 07:55 07/20/24 08:02 07/20/24 07:55 07/20/24 04:35 07/20/24 08:18
I&O
07/19/24 07/20/24 07/21/24
06:59 06:59 06:59
Intake Total 480 / 480 790 / 790
Balance 480 / 480 790 / 790
Review of Systems
-
History Source: Patient and Coordinated Provider
Constitutional: Reports No Symptoms; Denies Fever
EENT: Reports No Symptoms Reported
Respiratory: Reports No Symptoms
Cardiac: Reports No Symptoms and Chest Pain (chest wall area in region of infected site remains very tender)
Abdomen/GI: Reports No Symptoms
Musculoskeletal: Reports No Symptoms
Physical Exam
-
General: Well Developed, Well Nourished and No Apparent Distress
HEENT: Normocephalic and Atraumatic
Respiratory: Clear to Auscultation; Negative Wheezes, Rales or Rhonchi
Cardiac: Regular Rhythm and S1/S2
Skin: Warm and Lesions (left upper chest wall with evidence of infection PPM pocket, covered with dressing)
Neuro: Awake, Alert and Oriented
[2024-07-20] MEDS: APRESOLINE PO ×2 (08:34→16:44)
[2024-07-20] MEDS: LASIX PO (08:38)
--- NOTE | 2024-07-20 08:58 | PHA.VAN.FU ---
Vancomycin Assessment / Plan
- Assessment
Renal Function: No New Labs Today
In the past 24 hrs, patient has been: Afebrile
Concomitant Antimicrobials: cefepime
- Dosing Plan
Continue: to dose by level
Dosing by Level: Hold off on dosing today (last dose 750 mg 07/19 0840)
based on current admission clearance, patient is expected to maintain appropriate vancomycin levels through 07/21 am (half-life on 07/19 =72.5)
- Monitoring Plan
Random Level: 14 am
- Follow Up
Pharmacy will continue to follow.
Vancomycin Follow UP
- -
Patient Age: 74
Patient Sex: Female
Vancomycin Day #: 5
Indication: Skin And Soft Tissue (Infected ICD pacemaker pocket skin soft tissue infection)
Requesting Provider: Dr Arrieta/ Dr Solis
Pertinent Antimicrobial Allergies:
Sulfa (Sulfonamide Antibiotics) Allergy (Verified 07/15/24 13:13) Unknown
levofloxacin [From Levaquin] Allergy (Verified 07/15/24 13:13) Tongue Swelling
Height / Weight:
Height 5 ft 2 in
Actual Weight 72.5 kg
Pertinent Past Medical History: pacemaker; hardware removal planned for 07/20
- Vital Signs / Lab Results
Temp Pulse Resp BP Pulse Ox
98.1 F 81 17 97/61 97
07/20/24 07:55 07/20/24 08:02 07/20/24 07:55 07/20/24 04:35 07/20/24 08:18
Lab Results - Hematology
07/19/24
05:20
WBC 6.0
Lab Results - Chemistry
07/19/24
05:20
BUN 38 H
Creatinine 1.4 H
Estimated Creat Clear 33
Microbiology Results
07/17/24 09:38 Wound Culture - Preliminary
Chest - Left Gram negative bacilli
Gram Stain - Preliminary
07/16/24 01:23 Blood Culture - Preliminary
Blood/Venous No Growth in 4 days- Final report to follow
07/15/24 17:29 Blood Culture - Preliminary
Blood/Venous No Growth in 4 days- Final report to follow
Therapeutic Drug Monitoring
Random Vancomycin 13.4 ug/ml 07/19/24 05:20
--- NOTE | 2024-07-20 09:00 | PTCARENOTE ---
Patient received from entry writer resting comfortably oob in chair, AAO x 3, denies pain at this time. NSR w/ectopy via cm, SaO2 @ 97% on RA. LCW site cdi. Patient NPO for procedure later this morning, updated to plan of care for the day, in
agreement. See work list for full assessment and interventions performed.
[2024-07-20] MEDS: COREG 12.5 MG PO ×2 (09:07→20:15)
[2024-07-20] MEDS: ASACOL, DELZICOL DR 2400 MG PO (09:07)
[2024-07-20] MEDS: PEPCID 20 MG PO (09:07)
[2024-07-20] MEDS: CYMBALTA DELAYED RELEASE 30 MG PO (09:07)
[2024-07-20] MEDS: STERILE WATER FOR INJECTION 10 ML IV ×2 (09:21→20:16)
[2024-07-20] MEDS: MAXIPIME 2000 MG IV ×2 (09:21→20:16)
--- NOTE | 2024-07-20 11:29 | PTCARENOTE ---
Patient transported via bed to CCL w/two RN's for procedure.
--- NOTE | 2024-07-20 15:52 | W.PN.CD ---
Today's Communication / Plan
-
- Lead extraction today
Impression / Plan
-
73-year-old woman with chronic heart failure status post single-chamber ICD 2002 ([employer], status post generator change in 2010 and secondary to change in November 2023 (Dr. Ro at [facility]), coronary disease status post PCI with CHERELLE to LAD in
February 2016, PCI to RCA with stent in December 2016, inflammatory bowel disease (ulcerative colitis), PMR, history of DVT after cholecystectomy, asthma, hypothyroidism, capsulitis, history of partial bowel resection with perforated diverticulitis in 2004,
initially pocket washout on 12/20/23 who presented with her pocket infection and pus coming from the pocket.
Pocket infection
-Infected in November and December s/p debridement in December but infection is back - latency of 6 months.
-Pus in the pocket - copious amount - aspirated 07/17/24.
- s/p drained, washout, debridement, relocation of the ICD generator 12/20/23
-Discussed wit ID - recommended aspiration for identification for keno terminal operator antibiotics.
-s/p Outpatient antibiotics - multiple drugs tried. Latest was Clinda and doxy. Failed oral meds - now inpatient.
-S/p Aztreonam. now on Vanco and on Cefepime.
-s/p pocket revision, debridement, washout, relocation of the pocket after maximal attempt of sterilization of the wire and generator 12/20/23
- Wound aspirated 07/17/24 - WBC and pus noted. No active organism present. Has been on antibiotics for past few weeks.
-Hold Plavix and Farxiga
-Plan for hardware removal - laser lead extraction - planned for today
- Possibility for subQ ICD placement given her high risk of infection on Tuesday.
Heart failure
-Primary prevention ICD in place
-Echocardiogram - 07/17/24: LVEF 20%- moderate MR. No obvious vegetations.
-Last echo at our hospital 12/21/23 - : LVEF 20%, moderate MR - RCA and Circumflex territory severe hypokinesis, LAD hypokinesis.
-Currently on Coreg, hydralazine
-Did not tolerate ACEI. on hold with infection. Can retry once BP stable.
Coronary artery disease
-On Plavix, Coreg and Lipitor
-Hold Plavix for now.
DM
-Insulin for tighter glucose control at least while in patient
Physical Exam
Vital Signs/Labs
Vital Signs
Temp Pulse Resp BP Pulse Ox
98.1 F 79 22 132/85 97
07/20/24 07:55 07/20/24 11:20 07/20/24 11:20 07/20/24 09:07 07/20/24 08:18
07/19/24 07/20/24 07/21/24
06:59 06:59 06:59
Actual Weight 72.5 kg 72.5 kg
07/19/24 05:20
07/19/24 05:20
Physical Exam
Constitutional: No acute distress and Comfortable
EENT: Anicteric and Moist mucous membranes
Cardiovascular: Rhythm & rate is regular, Pedal edema is absent and JVD pressure is normal
Respiratory: Respiratory effort normal, Lungs clear to auscul. and Wheeze Absent
GI: Soft, Non tender and Normal bowel sounds
Neuro/Psych: Alert, Oriented and AO x 3
Other: Cardiac Device Site
Data Reviewed
-
Date of Service: July 20, 2024
Medical Decision Making: Reviewed Test Results
EKG: Tracing Personally Visualized and interpreted
Echo: Report Reviewed by me
Labs: Labs Reviewed by me
Old Records: Reviewed
--- NOTE | 2024-07-20 15:54 | ITS.CL.PN ---
Principal Architect - Procedure Note
Procedure
Procedure Note:
Extraction Procedure:
Laser Extraction of ICD system including extraction of RV Defibrillator lead and the generator.
Ms. Ro is a 74-year-old woman with chronic heart failure status (HFrEF � LVEF of 20% with WHO class III symptoms) post single-chamber ICD Aug 2002 ([employer], status post generator change in 2010 and second change in November 2023 ([facility]),
coronary disease status post PCI with CHERELLE to LAD in February 2016, PCI to RCA with stent in December 2016, inflammatory bowel disease (ulcerative colitis), PMR, history of DVT after cholecystectomy, asthma, hypothyroidism, capsulitis, history of partial
bowel resection with perforated diverticulitis in 2004 who presented with her pocket infection and pus coming from the pocket. The pocket was cleaned with pocket revision, debridement, washout, relocation of the pocket after maximal attempt of
sterilization of the wire and generator 12/20/23. Shivani remained infection free for 6 months and is back with purulent discharge from the ICD now. Endocarditis/hardware infection and is recommended for hardware removal with laser and mechanical
lead extraction.
Indications: Recurrent ICD infection
Date of the Procedure: 07/20/24
Pre-Operative Diagnosis: Recurrent ICD infection
Post-Operative Diagnosis: Recurrent ICD infection
Procedure Performed: ICD system extraction wit removal of ICD and dual coil ICD lead
�
Performing Physicians:
Gokul Costa MD
Anesthesia:
See anesthesia records
Detailed Description of the Procedure:
Written informed consent was obtained from the patient after a full explanation of the risks and benefits of the procedure. The patient was brought to the lab in the fasting state. Prophylactic antibiotics were given prior to the start of the
procedure. Continuous electrocardiographic and hemodynamic monitoring was initiated.
The initial rhythm was sinus tachycardia.
The ICD device was interrogated and turned off.
General anesthesia with intubation and mechanical conventional ventilation used. Anesthesia staff performed intubation monitored the patient during case. The ventral torso was meticulously prepared with surgical scrub and allowed to dry with no
pooling. Sterile draping was applied to cover the operative field. The image intensifier was draped with a sterile bag and positioned over the patient's chest.
A surgical pause was performed in accordance with hospital regulations. Anesthesia service provided sedation as reported separately. Antibiotics administered IV for bacterial infection
Groin Prep and vascular access:
After infiltration with lidocaine, large bore venous access was established via the right and left femoral veins. An intra-arterial catheter was placed via the left femoral artery for emergency access.
A 12 Fr sheath was placed and the guidewire was placed from the right femoral vein to the right IJ. An inner sheath was used for the selectively engaging the IJ. An endovascular occlusion balloon was advanced over the guidewire into the SVC. The
balloon was inflated with 20% contrast and adequate occlusion of the SVC identified. The balloon was deflated and pulled down to the IVC.
Another 6 Fr sheath was placed in the left femoral vein for the anesthesia administration.
Pocket Exploration:
After infiltration with lidocaine, an incision was made in the left delto-pectoral groove over the previously implanted device. Using blunt dissection and electrocautery, the incision was carried down to the level of the device, being careful to
maintain adequate hemostasis and not disrupt the previously implanted leads. Fluoroscopy was performed with showed normal appearance of the existing leads and during the procedure.
The ICD wound has dehiscence with ICD was visible now with discharge from the pocket. There was copious amount of purulent discharge noted and the pocket has pus in it. The aerobic and anaerobic cultures were obtained from deep pocket. The generator
was removed from the pocket. The leads were individually released from the scar tissue and the fibrotic tissue was removed.
RV pacing lead extraction:
The RV lead was imaged and was noted to be attached to the RV apical area. The RV lead was attempted to pull the screw back. It appeared that the screw at the tip did move but the lead itself was snug and would not move at all. The lead was clipped
approximately 4 cm proximal to the entry site into the vein using lead cutting scissors.
The inner channel of the lead was sized and a Lead Locking Device (LLD) #2 was advanced and was able to reach to the distal tip. The locking mechanism was engaged and the stylet was fixed in position in the lead. An ETHICON SA8 2 Perma-hand Silk,
black braided, 60inch was fixed to the proximal end of the lead to establish additional control. An additional Ethicon suture was tied to the individual leads for added strength.
A 14F [place] Laser Sheath was tested using the CVX-300 system and found to meet specifications. Under fluoroscopic guidance, tension was applied to the lead via the locking stylet and the suture. Along with an outer sheath, the laser sheath
was advanced over the pacing lead under fluoroscopic guidance until resistance was met. Laser energy was applied in up to 10-second bursts in regions of resistance allowing advancement of the sheaths under fluoroscopic guidance. Laser energy was
applied at the venous entry site, and in the subclavian vein. The laser was able to advance the sheath to the innominate vein. There was resistance noted in the subclavian vein. There was heavily calcified areas noted making movement of Laser
ineffective.�
A sub-C tight rail was used to make good progress around the ICD lead. The sub-C was able to go over the proximal coil. The coil started to uncoil without any significant progress into the SVC.
The decision was made to switch to long tightrail mechanical tool to curve around the SVC into the RA. The TightRail catheter was advanced over the lead into the vein. Mechanical energy was delivered through the catheter at the junction of the
subclavian the innominate vein to superior vena cava (SVC).
When the TightRail reached the reached the SVC, the distal tip of the ICD lead remained anchored and was not able to get freed. The attempt of pulling the ICD lead would lead to avulsion of the RV cavity and the lead would not be able to released by
countertraction.
The Tightrail was used over the ICD lead and was able to go over the distal coil gradualy with KIMMY monitoring and recovering from avulsion gradually. Finally the tightrail was able to reach the tip and mechanical energy was needed to cut the tissue
around the passive tines.
The lead and the catheter were removed from the venous system. Hemostasis at the venous entry site was obtained using Vicryl 2-0 suture pursestring suture.
The pocket was rinsed with antibiotic solution. All bleeding points were cauterized. The pocket was debrided and washed using betadine. A KATHY drain was placed and anchored to the tissue using 0-silk suture.
The deep tissue was closed with 2-0 VLoc. The outer dermis and skin was closed using 2-0 V-loc sutures. Steri-strips and a sterile dressing were then applied.
�
The SVC balloon and the wire was also removed under fluoroscopic guidance.
Procedure End:
The procedure was tolerated well. A bandage was applied to the incision area to be removed in a day. A pressure dressing was applied.
A pressure dressing was applied.
The sheaths were removed from the groin. A figure of 8 suture was placed around the right sided venoues access. Manual pressure applied to access sites to achieve hemostasis. Anesthesia was reversed and the anesthesia staff extubated then observed
the patient until the return of pre-sedation mental status. The patient was transferred to the recovery area.
Estimated Blood loss:
10 cc
Specimens Removed:
Superficial and Deep pocket aerobic and anaerobic cultures were obtained.
Urine output:
None
Packs / Drains/ Tubes:
None
Instrument / Sponge Count Correct:
Yes
Complications of the Procedure:
None
Condition of Patient at Time of Transfer:
Hemodynamically stable with no neurological or vascular compromise.
Explanted Device information:
Explanted on 07/20/2024
���������� Generator: [employer]� ICD
D120 [facility] - SN # [id number] � implanted 11/24/23
����������� RV Lead: ICD � dual coil passive
����������������������� Guidant [address] [place], SN: [id number] � implanted 08/08/2002
The existing device was explanted during this procedure on 07/20/2024.
Summary:
Successful extraction of the infected single chamber ICD system � RV lead and generator.
Results/Recommendations:
1-Please follow up ECHO in AM
2. Please Admit to CVICU for observation.
3. Keep Foleys in place for 6 hours until able to ambulate.
4. Please keep the defibrillator pads on and keep on Telemetry.
5. Continue antibiotics - as per ID
�
Gokul Costa MD [facility]
Electrophysiology
�
--- NOTE | 2024-07-20 16:15 | PTCARENOTE ---
Patient received from CCL s/p lead extraction. NSR via cm, SaO2 @ 99% on 6lnc. L brachial arterial line present - leveled, flushed, and calibrated w/good waveform returned, positional. Oslis catheter to gravity. LCW procedural dressing cdi. B/L
groin sites cdi, no ecchymosis or hematoma noted, distal pulses weakly palp. ACW KATHY drain, reconstituted. Spouse to bedside, updated.
[2024-07-20] MEDS: TYLENOL 650 MG PO (16:55)
--- NOTE | 2024-07-20 20:00 | PTCARENOTE ---
Received pt from [facility]. Walking rounds completed. Pt assessment completed in bed. NSR on monitor. HR 73, B/P 105/53. L brachial arterial line leveled, flushed, and calibrated. A-line readings are positional. Bilateral UE pulses palpable.
negative edema. Lungs clear, diminished in bases. POX 94% on 3L NC. I/S 750. Solis catheter intact, draining clear yellow urine WNL. LCW procedural dressing C/D/I. Bilateral groin sites C/D/I, slight ecchymosis noted on L groin site. No hematoma
noted, distal pulses weakly palp. ACW KATHY drain intact, draining red fluid WNL. Discussed plan of care with pt. Pt agrees will plan. Will continue to monitor pt needs.
[2024-07-20 20:07] LABS: Glucose - Point of Care 181 mg/dl (70-99)
[2024-07-20] MEDS: NOVOLOG FLEXPEN-MODERATE RESISTANCE 1 UNITS SC (20:13)
[2024-07-20] MEDS: LIPITOR 80 MG PO (21:38)
--- NOTE | 2024-07-20 22:50 | PTCARENOTE ---
VSS. Pt in NSR on monitor. HR 71. B/P 114/63. Evening care provided. Pt resting in bed. Will continue to monitor pt needs.
[2024-07-20 23:55] LABS: Glucose - Point of Care 268 mg/dl (70-99)
[2024-07-21] VITALS (24 sets, daily range): BP systolic 91–115; BP diastolic 47–64; BMI 29.7
[2024-07-21 05:40] LABS: Blood Urea Nitrogen 48 mg/dl (7-17); Carbon Dioxide 26 mmol/L (22-30); Chloride 98 mmol/L (98-107); Estimated Creatinine Clearance 25 ml/min; Glucose 173 mg/dl (70-99); Magnesium 2.4 mg/dl (1.6-2.3); Potassium 4.4 mmol/L (3.5-5.1); Sodium 136 mmol/L (135-145); eGFR 27.54
[2024-07-21 05:56] LABS: Vancomycin Random 13.7 ug/ml
--- NOTE | 2024-07-21 06:58 | W.PN.CARD.SR ---
Sheath/IABP Sheath Removal
Sheath Removal
Left Arterial Brachial:
Site appearance prior to sheath removal: Intact
Size of hematoma in cm: 0
Sheath removed by:: Physician physicians assistant
Name of associate removing sheath: Kae Rehman
Time of sheath removal: 06:30
Time hemostasis achieved: 06:50
Site appearance post sheath removal: Intact
Size of hematoma in cm: 0
Method of Hemostasis Post Sheath Removal: Manual Pressure
Dressing dry and intact?: Yes
Comments: Site is clean, dry, intact, no palpable hematoma. Palpable 2+ radial pulse
[2024-07-21 07:29] LABS: % Basophils 0.4 % (0-2); % Immature Granulocytes 0.6 % (0-0.5); % Lymphocytes 7.1 % (20.5-51.1); % Monocytes 9.9 % (1.7-9.3); Absolute Immature Granulocytes 0.1 10^3/uL (0-0.05); Absolute Lymphocytes 0.6 10^3/uL (1.2-3.4); Absolute Monocytes 0.8 10^3/uL (0.1-0.6); Absolute Neutrophils 6.5 10^3/uL (1.4-6.5); Hematocrit 28.6 % (37.0-47.0); Hemoglobin 9.2 g/dL (12.0-16.0); Mean Corp Hgb Conc. 32.2 g/dL (33.0-37.0); Mean Corpuscular Hgb 33.9 pg (27.0-31.0); Mean Corpuscular Volume 105.5 fL (81.0-99.0); Mean Platelet Volume 10.3 fL (7.4-10.4); Nucleated Red Blood Cells % 0 %; Platelet Count 147 10^3/uL (130-400); Red Blood Cell Count 2.71 10^6/uL (4.20-5.40); Red Cell Dist. Width 13.8 % (11.5-14.5); White Blood Cell Count 7.9 10^3/uL (4.8-10.8)
--- NOTE | 2024-07-21 08:00 | PTCARENOTE ---
Assumed care of patient. Pt assessed while she was lying in bed. Pt alert and oriented x4. Denies pain, shortness of breath, and nausea. LOPEZ with equal strength throughout. NSR with 1st degree AVB on tele with rates in the70s. BP 115/57. Heart tones
audible. Bilateral radial and DP pulses palpable. No edema noted. POX 100% on 5L NC, titrated to 2L NC, POX 99%, titrated to RA, POX 93%. Lungs diminished throughout. Occasional nonproductive dry cough. Abdomen soft, round, nontender. +BS. Pt
reports passing gas. Tolerating diet. Pt due to void post joyce removal. Left chest wall incision covered with pressure dressing. KATHY to left shoulder/chest area with no drainage, KATHY to suction. B/l groins soft, nontender, dressings CDI. Right hand
and Left forearm PIVs intact. See MAR for medication administration. See worklist for complete nursing assessment. Plan of care reviewed and patient in agreement.
[2024-07-21] MEDS: LASIX 40 MG PO (08:18)
[2024-07-21] MEDS: PEPCID 20 MG PO (08:18)
[2024-07-21] MEDS: MAXIPIME 2000 MG IV ×2 (08:21→21:38)
[2024-07-21] MEDS: STERILE WATER FOR INJECTION 10 ML IV ×2 (08:21→21:38)
[2024-07-21] MEDS: CYMBALTA DELAYED RELEASE 30 MG PO (08:21)
[2024-07-21] MEDS: COREG 12.5 MG PO ×2 (08:21→20:03)
[2024-07-21] MEDS: NOVOLOG FLEXPEN-MODERATE RESISTANCE 1 UNITS SC ×2 (08:25→16:45)
[2024-07-21 08:29] LABS: Glucose - Point of Care 150 mg/dl (70-99)
--- NOTE | 2024-07-21 08:57 | PHA.VAN.FU ---
Vancomycin Assessment / Plan
- Assessment
Renal Function: SCR Increasing (1.4->1.9)
WBC's are: WNL
In the past 24 hrs, patient has been: Afebrile
Concomitant Antimicrobials: cefepime
- Assessment - Therapeutic Drug Monitoring
Random Level: 13.7 - last dose 750 mg 07/19 840
- Dosing Plan
Continue: dose by random level
Dosing by Level: Re-dose today (500 mg x 1 dose today)
Dosing Comments: giving 500 mg today due to jump in SCR from 1.4>1.9
- Monitoring Plan
Random Level: repeat random level AM Monday 07/23 - expect pt to maintain therapeutic lvl
- Follow Up
Pharmacy will continue to follow.
Vancomycin Follow UP
- -
Patient Age: 74
Patient Sex: Female
Vancomycin Day #: 6
Indication: Skin And Soft Tissue (Infected ICD pacemaker pocket skin soft tissue infection)
Requesting Provider: Dr Arrieta/ Dr Solis
Pertinent Antimicrobial Allergies:
Sulfa (Sulfonamide Antibiotics) Allergy (Verified 07/15/24 13:13) Unknown
levofloxacin [From Levaquin] Allergy (Verified 07/15/24 13:13) Tongue Swelling
Height / Weight:
Height 5 ft 2 in
Actual Weight 73.7 kg
Pertinent Past Medical History: pacemaker; hardware removal planned for 07/20
- Vital Signs / Lab Results
Temp Pulse Resp BP Pulse Ox
98.0 F 73 16 115/57 100
07/21/24 08:00 07/21/24 08:00 07/21/24 06:00 07/21/24 07:03 07/21/24 07:03
Lab Results - Hematology
07/19/24 07/21/24 07/21/24
05:20 05:02 06:10
WBC 6.0 Cancelled 7.9
Lab Results - Chemistry
07/19/24 07/21/24
05:20 05:02
BUN 38 H 48 H
Creatinine 1.4 H 1.9 H
Estimated Creat Clear 33 25
Microbiology Results
07/16/24 01:23 Blood Culture - Final
Blood/Venous No Growth - Final Report
07/15/24 17:29 Blood Culture - Final
Blood/Venous No Growth - Final Report
07/20/24 14:54 Gram Stain - Preliminary
Chest - Left
07/17/24 09:38 Wound Culture - Preliminary
Chest - Left Gram negative bacilli
Gram Stain - Preliminary
Therapeutic Drug Monitoring
Random Vancomycin 13.7 ug/ml 07/21/24 05:02
[2024-07-21] MEDS: ASACOL, DELZICOL DR 2400 MG PO (10:26)
[2024-07-21] MEDS: VANCOCIN HCL 500 MG 100 IV (10:26)
[2024-07-21] MEDS: APRESOLINE PO ×3 (10:39→21:37)
--- NOTE | 2024-07-21 10:40 | PTCARENOTE ---
Pt assisted to the bathroom. Voided 100ml clear yellow urine. Assisted back to bed for echo.
--- NOTE | 2024-07-21 11:34 | W.PN.ID1 ---
Date of Service
Date of Service: July 21, 2024
Today's Communication
DC Vancomycin
Continue cefepime.
Assessment / Plan
Relapsed pacer pocket infection/infected cardiac device
-Recent hx of ICD pocket site infection with Proteus (12/2023) s/p ICD generator extraction, pocket I+D, placement of same generator cleaned with betadine at separate site, leads retained, s/p 4 weeks ceftriaxone.
- 07/20/24 s/p total extraction of ICD
Normal white count with left shift
Renal insufficiency
Lactic acidosis
Diabetes mellitus type 2
Hypertension
CAD status post stent
Ischemic cardiomyopathy status post AICD placement (2002)
Ulcerative colitis on mesalamine
Hypothyroidism
Asthma
PMR
Herniated disc
Depression/anxiety
Recommendations:
Pocket aspiration culture: GNR (suspect Proteus as previous)
Blood cx neg to date.
DC Vancomycin.
Continue cefepime pending cx data
Follow OR cx
Pt with limited venous access. OK to place midline from ID standpoint.
����������������������������������������������������������
Chief Complaint
-: Other (Pacer pocket infection)
Subjective / Review of Systems
No pain. Feels OK.
Vital Signs / Physical Exam
Vital Signs
Vital Signs
Temp Pulse Resp BP Pulse Ox
98.0 F 73 16 97/47 97
07/21/24 08:00 07/21/24 11:00 07/21/24 06:00 07/21/24 09:50 07/21/24 09:50
Physical Exam
Constitutional: No Acute Distress
Cardiovascular: Regular Rate and Other (left chest wall drain with serosanguinous fluid)
Gastrointestinal: Soft, Non Tender, Non Distended and Normal Bowel Sounds
Extremities: Negative Edema
Neurological: AO x 3
Objective Data
Lab Data
Lab Results
07/21/24 06:10
07/21/24 05:02
Estimated Creat Clear 25 ml/min 07/21/24 05:02
Lactic Acid 0.9 mmol/L (0.7-2.0) 07/16/24 06:28
Total Bilirubin 0.5 mg/dl (0.2-1.3) 07/15/24 15:10
AST 26 U/L (14-36) 07/15/24 15:10
ALT 14 U/L (0-35) 07/15/24 15:10
Alkaline Phosphatase 100 U/L (38-126) 07/15/24 15:10
Most recent labs reviewed.
Micro Results:
07/20/24 14:54 Anaerobic Culture - Preliminary
Chest - Left Culture pending. Anaerobic cultures are examined after 3
days incubation. Additional information to follow.
07/20/24 14:54 Wound Culture - Preliminary
Chest - Left No growth
Gram Stain - Preliminary
07/17/24 09:38 Wound Culture - Preliminary
Chest - Left Gram negative bacilli
Gram Stain - Preliminary
07/16/24 01:23 Blood Culture - Final
Blood/Venous No Growth - Final Report
07/15/24 17:29 Blood Culture - Final
Blood/Venous No Growth - Final Report
07/16/24 09:11 MRSA Screen - Final
Nose No Methicillin Resistant Staphylococcus aureus isolated.
--- NOTE | 2024-07-21 11:41 | W.PN.CD ---
Today's Communication / Plan
-
Continue current medications.
Hold the hydralazine preferentially to Coreg if blood pressure marginal.
N.p.o. after midnight tomorrow for ICD placement on Tuesday.
Continue to hold Plavix and SGLT2 inhibitor.
Impression / Plan
-
73-year-old woman with chronic heart failure status post single-chamber ICD 2002 ([employer], status post generator change in 2010 and secondary to change in November 2023 (Dr. Ro at [facility]), coronary disease status post PCI with CHERELLE to LAD in
February 2016, PCI to RCA with stent in December 2016, inflammatory bowel disease (ulcerative colitis), PMR, history of DVT after cholecystectomy, asthma, hypothyroidism, capsulitis, history of partial bowel resection with perforated diverticulitis in 2004,
initially pocket washout on 12/20/23 who presented with her pocket infection and pus coming from the pocket.
Pocket infection
-Infected in November and December s/p debridement in December but infection is back - latency of 6 months.
-Pus in the pocket - copious amount - aspirated 07/17/24.
- s/p drained, washout, debridement, relocation of the ICD generator 12/20/23
-Discussed wit ID - recommended aspiration for identification for shelter antibiotics.
-s/p Outpatient antibiotics - multiple drugs tried. Latest was Clinda and doxy. Failed oral meds - now inpatient.
-S/p Aztreonam. now on Vanco and on Cefepime.
-s/p pocket revision, debridement, washout, relocation of the pocket after maximal attempt of sterilization of the wire and generator 12/20/23
- Wound aspirated 07/17/24 - WBC and pus noted. No active organism present. Has been on antibiotics for past few weeks.
-Hold Plavix and Farxiga
-Successful extraction of the infected single chamber ICD system � RV lead and generator.
-Echo without effusion today.
- Possibility for subQ ICD placement given her high risk of infection on Tuesday.
Heart failure
-Primary prevention ICD in place
-Echocardiogram - 07/17/24: LVEF 20%- moderate MR. No obvious vegetations.
-Last echo at our hospital 12/21/23 - : LVEF 20%, moderate MR - RCA and Circumflex territory severe hypokinesis, LAD hypokinesis.
-Currently on Coreg, hydralazine
-bp soft, hold hydralazine over COREG in a borderline bp situation
-Did not tolerate ACEI. on hold with infection. Can retry once BP stable.
-hold sglt2i for procedures
Coronary artery disease
-On Plavix, Coreg and Lipitor
-Hold Plavix for now. Will start aspirin while Plavix on hold.
DM
-Insulin for tighter glucose control at least while in patient
Subjective: She feels well outside of being a bit woozy at times. No chest pain or shortness of breath. Device site without pain
Physical Exam
Vital Signs/Labs
Vital Signs
Temp Pulse Resp BP Pulse Ox
98.0 F 73 16 97/47 97
07/21/24 08:00 07/21/24 11:00 07/21/24 06:00 07/21/24 09:50 07/21/24 09:50
07/20/24 07/21/24 07/22/24
06:59 06:59 06:59
Actual Weight 72.5 kg 73.7 kg
07/21/24 06:10
07/21/24 05:02
Magnesium 2.4 mg/dl (1.6-2.3) H 07/21/24 05:02
Physical Exam
Constitutional: No acute distress
Cardiovascular: Rhythm & rate is regular, Pedal edema is absent, JVD pressure is normal and Systolic murmur absent
Respiratory: Respiratory effort normal, Lungs clear to auscul., Wheeze Absent, Crackles Absent and Rhonchi Absent
Neuro/Psych: AO x 3
Other: Cardiac Device Site (Dressing clean dry intact)
Data Reviewed
-
Date of Service: July 21, 2024
Medical Decision Making: Review of Case with other Provider (Updated nurse, will start aspirin. Updated Dr. Vazquez)
Echo: Tracing Personally Visualized and interpreted (No effusion)
--- NOTE | 2024-07-21 12:00 | PTCARENOTE ---
Pt reassessed. States she feels drowsy. SR with 1st degree AVB with rates in the 70s. BP 104/52. POX 95% on RA. Surgical sites unchanged from previous assessment. PIVx2 burning when flushed. IV team notified. PIVx 2 d/c.
[2024-07-21] MEDS: NOVOLOG FLEXPEN-MODERATE RESISTANCE SC (12:20)
--- NOTE | 2024-07-21 12:40 | W.PN.HOSP.TC ---
Addendum entered and electronically signed by Zbigniew Vazquez MD 07/21/24 15:12:
nursing requests transfer from ICU to IVU, will place orders
Addendum entered and electronically signed by Zbigniew Vazquez MD 07/21/24 12:49:
BUN/Creat creeping up 38/1.4-->48/1.9
will start gentle IVF, may be a little dry
Original Note:
Today's Communication/Plan
-
will add low dose Lantus
Assessment / Plan
Assessment / Plan
Infected ICD pacemaker pocket skin soft tissue infection:
Admitted to IVU
At risk of sepsis but no evidence of such at this point
07/17 chest x-ray: Left chest wall defibrillator with lead tip over the right ventricle.
There is an irregular curvilinear metallic density projecting over the left anterior chest wall, anterior to the left chest wall battery pack, new from chest radiograph of July 16 2024. ICD pocket was reportedly aspirated earlier today. In
discussion with Dr. Costa, there is dressing material at the site of aspiration, which likely has radiopaque markings. Continued follow-up may be helpful.
The lungs appear clear. No evidence for pulmonary edema or pleural effusion.
Given IV aztreonam and IV vancomycin in the ER
Continue IV cefepime and vancomycin for now and further antibiotic depending on cultures.
Follow-up blood cultures. Underwent drainage of fluid from pocket 07/17, culture results pending
Cardiology, ID consulted--> follow-up their recommendations
Pain control
Underwent hardware removal on 07/20
Hypertension:
Continue home antihypertensives
Monitor blood pressure and adjust medications accordingly
Hyperlipidemia:
Continue home statin, pt takes at night, requesting time be changed
Ulcerative Colitis
pt takes Mesalamine 2.4 gms daily. Resumed
COPD
Pt on chronic Trelegy, requested be brought from home
Diabetes mellitus type 2:
Diabetic diet, pt is requesting change diet to regular
Insulin sliding scale
Continue Jardiance
Hold metformin in setting of infection
Hga1c 6.1%
glu 150-268
07/21 150
on moderate SSI, not on a standing dose
with wide swings in glu, will add low dose Lantus to try to attenuate variation
Chronic HFrEF:
Appears euvolemic on exam
Last echo on 12/29 EF 20 to 25% and stage II diastolic dysfunction
Continue oral diuretics
Continue beta-raulito
CAD:
Continue current anti-ischemic regimen
Continue cardiac monitoring
Hypothyroidism:
Continue levothyroxine home doses
Depression anxiety:
Continue antidepressant
CKD stage III:
Avoid nephrotoxic
Monitor renal function
GERD:
Continue H2 raulito
Obesity:
Lifestyle changes modifications warranted for weight loss
DVT prophylaxis:
Lovenox SQ
CODE STATUS:
Full code
Anticipated Discharge: > 48 hours
Subjective/Interval History
-
Date of Service: July 21, 2024
In good spirits, chest wall pain has decreased
Objective Data
-
Labs:
Laboratory Results
07/21/24 07/21/24
05:02 06:10
WBC Cancelled 7.9
Hgb Cancelled 9.2 L D
Hct Cancelled 28.6 L
Plt Count Cancelled 147 D
Sodium 136
Potassium 4.4
Chloride 98
Carbon Dioxide 26
BUN 48 H
Creatinine 1.9 H
Glucose 173 H
Calcium 9.0
Vital Signs:
Vital Signs
Temp Pulse Resp BP Pulse Ox
97.7 F 70 16 104/52 95
07/21/24 12:16 07/21/24 12:02 07/21/24 06:00 07/21/24 12:02 07/21/24 12:16
I&O
07/20/24 07/21/24 07/22/24
06:59 06:59 06:59
Intake Total 790 / 790 250 / 250 360 / 360
Output Total 855 / 855 100 / 100
Balance 790 / 790 -605 / -605 260 / 260
Review of Systems
-
History Source: Patient and Coordinated Provider
Constitutional: Reports No Symptoms; Denies Fever
EENT: Reports No Symptoms Reported
Respiratory: Reports No Symptoms
Cardiac: Reports No Symptoms and Chest Pain (chest wall area in region of infected site has decreased)
Abdomen/GI: Reports No Symptoms
Musculoskeletal: Reports No Symptoms
Physical Exam
-
General: Well Developed, Well Nourished and No Apparent Distress
HEENT: Normocephalic and Atraumatic
Respiratory: Clear to Auscultation; Negative Wheezes, Rales or Rhonchi
Cardiac: Regular Rhythm and S1/S2
Skin: Warm and Lesions (left upper chest wall with evidence of infection PPM pocket, covered with dressing)
Neuro: Awake, Alert and Oriented
[2024-07-21] MEDS: ASPIRIN 325 MG PO (13:17)
[2024-07-21] MEDS: 0.45%NACL 1000 IV (14:35)
--- NOTE | 2024-07-21 16:00 | PTCARENOTE ---
Pt reassessed. SR with 1st degree AVB with rates in the 70s. BP 91/55. POX 94% on RA. Surgical sites stable. Right upper arm midline intact infusing IVF. Family visiting at bedside.
[2024-07-21 16:45] LABS: Glucose - Point of Care 166 mg/dl (70-99)
[2024-07-21 21:31] LABS: Glucose - Point of Care 231 mg/dl (70-99)
[2024-07-21] MEDS: LIPITOR 80 MG PO (21:32)
[2024-07-21] MEDS: LANTUS 0.1 UNITS SC (21:39)
--- NOTE | 2024-07-21 23:45 | PTCARENOTE ---
Rec'd pt at change of shift. Pt AAO*3, VSS, and in NSR on TELE monitor. Pt denies any pain or discomfort. Pt with R upper extremity restriction and R midline intact with fluids infusing as ordered. Pt with L upper chest wall dressing CDI and
Femoral sites with dressing CDI. Pt currently resting with call latham in reach. Plan of care ongoing.
[2024-07-22] VITALS (9 sets, daily range): BP systolic 97–122; BP diastolic 44–64; BMI 30.6
[2024-07-22 03:54] LABS: Hematocrit 26.4 % (37.0-47.0); Hemoglobin 8.4 g/dL (12.0-16.0); Mean Corp Hgb Conc. 31.8 g/dL (33.0-37.0); Mean Corpuscular Volume 106.9 fL (81.0-99.0); Mean Platelet Volume 10.2 fL (7.4-10.4); Platelet Count 129 10^3/uL (130-400); Red Blood Cell Count 2.47 10^6/uL (4.20-5.40); Red Cell Dist. Width 13.7 % (11.5-14.5); White Blood Cell Count 6.8 10^3/uL (4.8-10.8)
[2024-07-22 04:22] LABS: Blood Urea Nitrogen 59 mg/dl (7-17); Calcium 8.8 mg/dl (8.4-10.2); Carbon Dioxide 25 mmol/L (22-30); Chloride 97 mmol/L (98-107); Estimated Creatinine Clearance 21 ml/min; Glucose 135 mg/dl (70-99); Potassium 3.7 mmol/L (3.5-5.1); Sodium 133 mmol/L (135-145)
[2024-07-22] MEDS: 0.45%NACL 1000 IV (05:53)
[2024-07-22] MEDS: TYLENOL 650 MG PO (08:27)
[2024-07-22] MEDS: NOVOLOG FLEXPEN-MODERATE RESISTANCE SC (08:27)
[2024-07-22] MEDS: ASACOL, DELZICOL DR 2400 MG PO (08:28)
[2024-07-22] MEDS: MAXIPIME 2000 MG IV ×2 (08:28→21:51)
[2024-07-22] MEDS: COREG 12.5 MG PO ×2 (08:28→19:35)
[2024-07-22] MEDS: STERILE WATER FOR INJECTION 10 ML IV ×2 (08:28→21:50)
[2024-07-22] MEDS: PEPCID 20 MG PO (08:29)
[2024-07-22] MEDS: CYMBALTA DELAYED RELEASE 30 MG PO (08:29)
[2024-07-22] MEDS: LOW STRENGTH ASPIRIN 81 MG PO (08:29)
[2024-07-22] MEDS: APRESOLINE PO (08:30)
--- NOTE | 2024-07-22 09:32 | W.PN.CD ---
Today's Communication / Plan
-
Stop hydralazine
Stop IV fluids
Hold Lasix
N.p.o. after midnight
Impression / Plan
-
73-year-old woman with chronic heart failure status post single-chamber ICD 2002 ([employer], status post generator change in 2010 and secondary to change in November 2023 (Dr. Ro at [facility]), coronary disease status post PCI with CHERELLE to LAD in
February 2016, PCI to RCA with stent in December 2016, inflammatory bowel disease (ulcerative colitis), PMR, history of DVT after cholecystectomy, asthma, hypothyroidism, capsulitis, history of partial bowel resection with perforated diverticulitis in 2004,
initially pocket washout on 12/20/23 who presented with her pocket infection and pus coming from the pocket.
Pocket infection
-Infected in November and December s/p debridement in December but infection is back - latency of 6 months.
-Pus in the pocket - copious amount - aspirated 07/17/24.
- s/p drained, washout, debridement, relocation of the ICD generator 12/20/23
-Discussed wit ID - recommended aspiration for identification for [facility] antibiotics.
-s/p Outpatient antibiotics - multiple drugs tried. Latest was Clinda and doxy. Failed oral meds - now inpatient.
-S/p Aztreonam. now on Vanco and on Cefepime.
-s/p pocket revision, debridement, washout, relocation of the pocket after maximal attempt of sterilization of the wire and generator 12/20/23
- Wound aspirated 07/17/24 - WBC and pus noted. No active organism present. Has been on antibiotics for past few weeks.
-Hold Plavix and Farxiga
-Successful extraction of the infected single chamber ICD system � RV lead and generator.
-Echo without effusion today.
- Possibility for subQ ICD placement given her high risk of infection on Tuesday.
Heart failure
-Primary prevention ICD in place
-Echocardiogram - 07/17/24: LVEF 20%- moderate MR. No obvious vegetations.
-Last echo at our hospital 12/21/23 - : LVEF 20%, moderate MR - RCA and Circumflex territory severe hypokinesis, LAD hypokinesis.
-Currently on Coreg, hydralazine
-bp soft, hold hydralazine over COREG in a borderline bp situation
-Did not tolerate ACEI. on hold with infection. Can retry once BP stable.
-hold sglt2i for procedures
Coronary artery disease
-On Plavix, Coreg and Lipitor
-Hold Plavix for now. Will start aspirin while Plavix on hold.
DM
-Insulin for tighter glucose control at least while in patient
Subjective: She feels well outside of being a bit woozy at times. No chest pain or shortness of breath. Device site without pain
Acute kidney injury: Unclear etiology
She appears euvolemic. Blood pressure was hypotensive for 12 minutes during procedure and low normal since. This may be contributing.
Will hold hydralazine
Will hold Lasix today, goal to keep even. Given low EF will stop IV fluids as she is taking p.o.
Further evaluation and workup per medicine.
Overall, this is a high risk situation given severe cardiomyopathy and now renal failure.
Subjective:
She is feeling great today. No chest pain or shortness of breath. She does not know when her dry weight is because she has been losing weight since being sick.
Physical Exam
Vital Signs/Labs
Vital Signs
Temp Pulse Resp BP Pulse Ox
98.6 F 74 20 100/48 93
07/22/24 06:53 07/22/24 08:30 07/22/24 06:53 07/22/24 08:30 07/22/24 06:53
07/21/24 07/22/24 07/23/24
06:59 06:59 06:59
Actual Weight 73.7 kg 75.7 kg
07/22/24 03:46
07/22/24 03:46
Magnesium 2.4 mg/dl (1.6-2.3) H 07/21/24 05:02
Physical Exam
Constitutional: No acute distress
Cardiovascular: Rhythm & rate is regular, JVD pressure is normal, Diastolic murmur absent, Rhythm/rate is irregular and Pedal edema present (Trace bilaterally)
Respiratory: Respiratory effort normal, Lungs clear to auscul., Wheeze Absent, Crackles Absent and Rhonchi Absent
Neuro/Psych: AO x 3
Data Reviewed
-
Date of Service: July 22, 2024
Medical Decision Making: Review of Case with other Provider (Discussed medication holds with Janie from IVU nursing and Dr. Vazquez.)
EKG: Other (Telemetry is sinus with PVCs.)
--- NOTE | 2024-07-22 10:50 | PTCARENOTE ---
received patient this am sitting up in chair, eating breakfast. monitor shows NSR with first degree. VSS. right midline was infusing 0.45NS, D/C'd as ordered. KATHY drain draining serosanguineous fluid, emptied drain 5cc. Dr. Love doing rounds
aware of holding hydralazine, ordered to put on hold and aware of am labs.bilat. fem sites dsg. D/I, distal pulses weak but palpable.
--- NOTE | 2024-07-22 11:40 | W.PN.ID1 ---
Date of Service
Date of Service: July 22, 2024
Today's Communication
Continue cefepime.
Assessment / Plan
Relapsed pacer pocket infection/infected cardiac device
-Recent hx of ICD pocket site infection with Proteus (12/2023) s/p ICD generator extraction, pocket I+D, placement of same generator cleaned with betadine at separate site, leads retained, s/p 4 weeks ceftriaxone.
- 07/20/24 s/p total extraction of ICD
Normal white count with left shift
Renal insufficiency
Lactic acidosis
Diabetes mellitus type 2
Hypertension
CAD status post stent
Ischemic cardiomyopathy status post AICD placement (2002)
Ulcerative colitis on mesalamine
Hypothyroidism
Asthma
PMR
Herniated disc
Depression/anxiety
Recommendations:
Pocket aspiration culture: Proteus (as previous).
OR pocket cx's neg to date.
Blood cx neg to date.
Continue cefepime
����������������������������������������������������������
Chief Complaint
-: Other (Pacer pocket infection)
Subjective / Review of Systems
No complaints.
Vital Signs / Physical Exam
Vital Signs
Vital Signs
Temp Pulse Resp BP Pulse Ox
98.2 F 74 16 100/48 93
07/22/24 10:10 07/22/24 10:10 07/22/24 10:10 07/22/24 10:10 07/22/24 06:53
Physical Exam
Constitutional: No Acute Distress and Comfortable
Cardiovascular: Other (left CW dressing dry)
Pulmonary: Clear
Gastrointestinal: Soft, Non Tender and Non Distended
Extremities: Negative Edema
Neurological: AO x 3
Lines: Other (RUE midline no erythema)
Objective Data
Lab Data
Lab Results
07/22/24 03:46
07/22/24 03:46
Estimated Creat Clear 21 ml/min 07/22/24 03:46
Lactic Acid 0.9 mmol/L (0.7-2.0) 07/16/24 06:28
Total Bilirubin 0.5 mg/dl (0.2-1.3) 07/15/24 15:10
AST 26 U/L (14-36) 07/15/24 15:10
ALT 14 U/L (0-35) 07/15/24 15:10
Alkaline Phosphatase 100 U/L (38-126) 07/15/24 15:10
Most recent labs reviewed.
Micro Results:
07/17/24 09:38 Wound Culture - Final
Chest - Left Proteus mirabilis
Gram Stain - Final
07/20/24 14:54 Anaerobic Culture - Preliminary
Chest - Left Culture pending. Anaerobic cultures are examined after 3
days incubation. Additional information to follow.
07/20/24 14:54 Wound Culture - Preliminary
Chest - Left No growth
Gram Stain - Preliminary
07/16/24 01:23 Blood Culture - Final
Blood/Venous No Growth - Final Report
07/15/24 17:29 Blood Culture - Final
Blood/Venous No Growth - Final Report
07/16/24 09:11 MRSA Screen - Final
Nose No Methicillin Resistant Staphylococcus aureus isolated.
Wound/abscess/other Cult Final 07/22/2459
Few Proteus mirabilis
Organism 1 Proteus mirabilis
1. Proteus mirabilis
M.I.C. RX
--------- ---
Amoxicillin/Potas. Clavulanate <=8/4 S
Ampicillin <=8 S
Ampicillin/Sulbactam <=4/2 S
Aztreonam <=4 S
Cefazolin 4 I
Cefepime <=2 S
Ceftazidime <=1 S
Ceftriaxone <=1 S
Ertapenem <=0.5 S
Ciprofloxacin <=0.25 S
Gentamicin <=2 S
Meropenem <=1 S
Piperacillin/Tazobactam <=8 S
Tetracycline >8 R
Tobramycin <=2 S
Trimethoprim/Sulfamethoxazole <=2/38 S
[2024-07-22 13:22] LABS: Glucose - Point of Care 193 mg/dl (70-99)
[2024-07-22] MEDS: NOVOLOG FLEXPEN-MODERATE RESISTANCE 1 UNITS SC (13:35)
[2024-07-22] MEDS: LASIX PO (14:12)
[2024-07-22 16:44] LABS: Glucose - Point of Care 250 mg/dl (70-99)
[2024-07-22] MEDS: NOVOLOG FLEXPEN-MODERATE RESISTANCE 5 UNITS SC (16:44)
--- NOTE | 2024-07-22 16:45 | W.PN.HOSP.TC ---
Today's Communication/Plan
-
ICD replacement tomorrow
Assessment / Plan
Assessment / Plan
Infected ICD pacemaker pocket skin soft tissue infection:
Admitted to IVU
At risk of sepsis but no evidence of such at this point
07/17 chest x-ray: Left chest wall defibrillator with lead tip over the right ventricle.
There is an irregular curvilinear metallic density projecting over the left anterior chest wall, anterior to the left chest wall battery pack, new from chest radiograph of July 16 2024. ICD pocket was reportedly aspirated earlier today. In
discussion with Dr. Costa, there is dressing material at the site of aspiration, which likely has radiopaque markings. Continued follow-up may be helpful.
The lungs appear clear. No evidence for pulmonary edema or pleural effusion.
Given IV aztreonam and IV vancomycin in the ER
Continue IV cefepime (vancomycin stopped) for now
Proteus isolated from wound culture
Cardiology, ID consulted--> follow-up their recommendations
Pain control
Underwent hardware removal on 07/20
For planned ICD replacement tomorrow
Hypertension:
Continue home antihypertensives
Monitor blood pressure and adjust medications accordingly
Hyperlipidemia:
Continue home statin, pt takes at night, requesting time be changed
Ulcerative Colitis
pt takes Mesalamine 2.4 gms daily. Resumed
COPD
Pt on chronic Trelegy, requested be brought from home
Diabetes mellitus type 2:
Diabetic diet, pt is requesting change diet to regular
Insulin sliding scale
Continue Jardiance
Hold metformin in setting of infection
Hga1c 6.1%
glu 150-268
07/21 150
on moderate SSI, not on a standing dose
with wide swings in glu, will add low dose Lantus to try to attenuate variation
Chronic HFrEF:
Appears euvolemic on exam
Last echo on 12/29 EF 20 to 25% and stage II diastolic dysfunction
Continue oral diuretics
Continue beta-raulito
CAD:
Continue current anti-ischemic regimen
Continue cardiac monitoring
Hypothyroidism:
Continue levothyroxine home doses
Depression anxiety:
Continue antidepressant
CKD stage III:
Avoid nephrotoxic
Monitor renal function
GERD:
Continue H2 raulito
Obesity:
Lifestyle changes modifications warranted for weight loss
DVT prophylaxis:
Lovenox SQ
CODE STATUS:
Full code
Anticipated Discharge: > 48 hours
Subjective/Interval History
-
Date of Service: July 22, 2024
Concerned about planned procedure for tomorrow
Objective Data
-
Vital Signs:
Vital Signs
Temp Pulse Resp BP Pulse Ox
97.1 F 70 16 122/54 96
07/22/24 16:21 07/22/24 16:21 07/22/24 16:21 07/22/24 16:21 07/22/24 16:21
I&O
07/21/24 07/22/24 07/23/24
06:59 06:59 06:59
Intake Total 250 / 250 1780 / 1780 300 / 300
Output Total 855 / 855 100 / 100 5 / 5
Balance -605 / -605 1680 / 1680 295 / 295
Review of Systems
-
History Source: Patient and Coordinated Provider
Constitutional: Reports No Symptoms; Denies Fever
EENT: Reports No Symptoms Reported
Respiratory: Reports No Symptoms
Cardiac: Reports No Symptoms and Chest Pain (chest wall area in region of infected site has decreased)
Abdomen/GI: Reports No Symptoms
Musculoskeletal: Reports No Symptoms
Physical Exam
-
General: Well Developed, Well Nourished and No Apparent Distress
HEENT: Normocephalic and Atraumatic
Respiratory: Clear to Auscultation; Negative Wheezes, Rales or Rhonchi
Cardiac: Regular Rhythm and S1/S2
Skin: Warm and Lesions (left upper chest wall with evidence of infection PPM pocket, covered with dressing)
Neuro: Awake, Alert and Oriented
--- NOTE | 2024-07-22 18:21 | PTCARENOTE ---
no drainage noted from KATHY drain
[2024-07-22 20:42] LABS: Glucose - Point of Care 169 mg/dl (70-99)
[2024-07-22] MEDS: LANTUS 0.1 UNITS SC (21:47)
[2024-07-22] MEDS: LIPITOR 80 MG PO (21:51)
[2024-07-23] VITALS (9 sets, daily range): BP systolic 99–144; BP diastolic 47–65; BMI 30.1
[2024-07-23 05:13] LABS: Hematocrit 27.8 % (37.0-47.0); Hemoglobin 8.9 g/dL (12.0-16.0); Mean Corpuscular Volume 106.1 fL (81.0-99.0); Mean Platelet Volume 10.5 fL (7.4-10.4); Platelet Count 143 10^3/uL (130-400); Red Blood Cell Count 2.62 10^6/uL (4.20-5.40); Red Cell Dist. Width 13.8 % (11.5-14.5); White Blood Cell Count 6.8 10^3/uL (4.8-10.8)
[2024-07-23 05:28] LABS: Blood Urea Nitrogen 55 mg/dl (7-17); Calcium 8.9 mg/dl (8.4-10.2); Carbon Dioxide 26 mmol/L (22-30); Chloride 102 mmol/L (98-107); Estimated Creatinine Clearance 24 ml/min; Glucose 132 mg/dl (70-99); Potassium 3.9 mmol/L (3.5-5.1); Sodium 137 mmol/L (135-145); eGFR 25.89
--- NOTE | 2024-07-23 06:02 | PTCARENOTE ---
Rec'd pt at change of shift. Pt AAO*3, VSS, pleasant, and in NSR with 1st degree hb on TELE monitor. Pt denies any pain or discomfort, and verbalizes comofort and safety. Pt with RUE restriction and midline in place with dressing CDI. GRACY chest
wall dressing CDI and bilateral femoral dressings CDI. Pt resting with call latham in reach and plan of care ongoing.
--- NOTE | 2024-07-23 07:30 | W.PN.CD ---
Today's Communication / Plan
-
- Sub Q ICD placement today and +/- KATHY drain removal.
Impression / Plan
-
73-year-old woman with chronic heart failure status post single-chamber ICD 2002 ([employer], status post generator change in 2010 and secondary to change in November 2023 (Dr. Ro at [facility]), coronary disease status post PCI with CHERELLE to LAD in
February 2016, PCI to RCA with stent in December 2016, inflammatory bowel disease (ulcerative colitis), PMR, history of DVT after cholecystectomy, asthma, hypothyroidism, capsulitis, history of partial bowel resection with perforated diverticulitis in 2004,
initially pocket washout on 12/20/23 who presented with her pocket infection and pus coming from the pocket.
Pocket infection
-Infected in November and December s/p debridement in December but infection is back - latency of 6 months.
-Pus in the pocket - copious amount - aspirated 07/17/24 - grew Proteus - same organism isolated in December 2023
-s/p Hardware extraction on 07/20/24 - ICD and ICD generator removed
-Pocket washed and rinsed.
-KATHY drain in place - minimal fluid coming - no obvios pus draining now.
-ECHO 07/21/24: No sing of pericardial effusion
-Hemodynamically stable and transferred out of the CVICU to IVU now.
-Discussed in detail with ID - WBC down, Cr started to come down - OK to proceed with SubQ ICD placement.
- SubQ ICD placement today - NPO now.
Heart failure
-Primary prevention ICD in place
-Echocardiogram - 07/17/24: LVEF 20%- moderate MR. No obvious vegetations.
-Last echo at our hospital 12/21/23 - : LVEF 20%, moderate MR - RCA and Circumflex territory severe hypokinesis, LAD hypokinesis.
-Currently on Coreg, hydralazine
-bp soft, hold hydralazine over COREG in a borderline bp situation
-Did not tolerate ACEI. on hold with infection. Can retry once BP stable.
-hold sglt2i for procedures
Coronary artery disease
-On Plavix, Coreg and Lipitor
-Hold Plavix for now. Will start aspirin while Plavix on hold.
DM
-Insulin for tighter glucose control at least while in patient
Subjective: She feels well outside of being a bit woozy at times. No chest pain or shortness of breath. Device site without pain
Acute kidney injury: Unclear etiology
She appears euvolemic. Blood pressure was hypotensive for 12 minutes during procedure and low normal since. This may be contributing.
Will hold hydralazine
Will hold Lasix today, goal to keep even. Given low EF will stop IV fluids as she is taking p.o.
Further evaluation and workup per medicine.
Overall, this is a high risk situation given severe cardiomyopathy and now renal failure.
Subjective:
She is feeling great today. No chest pain or shortness of breath.
Physical Exam
Vital Signs/Labs
Vital Signs
Temp Pulse Resp BP Pulse Ox
98.2 F 74 16 99/50 95
07/23/24 04:04 07/23/24 04:04 07/23/24 04:04 07/23/24 04:04 07/23/24 04:04
07/22/24 07/23/24 07/24/24
06:59 06:59 06:59
Actual Weight 75.7 kg 74.5 kg
07/23/24 04:29
07/23/24 04:29
Magnesium 2.4 mg/dl (1.6-2.3) H 07/21/24 05:02
Physical Exam
Constitutional: No acute distress and Comfortable
EENT: Anicteric and Moist mucous membranes
Cardiovascular: Rhythm & rate is regular, Pedal edema is absent and JVD pressure is normal
Respiratory: Respiratory effort normal, Lungs clear to auscul. and Wheeze Absent
GI: Soft, Distention absent, Non tender and Normal bowel sounds
Neuro/Psych: Alert, Oriented and AO x 3
Other: Cardiac Device Site
Data Reviewed
-
Date of Service: July 23, 2024
Medical Decision Making: Reviewed Test Results
EKG: Tracing Personally Visualized and interpreted
Echo: Report Reviewed by me
Labs: Labs Reviewed by me
Old Records: Reviewed
[2024-07-23 08:04] LABS: Glucose - Point of Care 124 mg/dl (70-99)
[2024-07-23] MEDS: SYNTHROID 175 MCG PO (08:04)
[2024-07-23] MEDS: COREG 12.5 MG PO ×2 (08:04→19:21)
[2024-07-23] MEDS: CYMBALTA DELAYED RELEASE 30 MG PO (08:04)
[2024-07-23] MEDS: ASACOL, DELZICOL DR 2400 MG PO (08:05)
[2024-07-23] MEDS: LOW STRENGTH ASPIRIN 81 MG PO (08:05)
[2024-07-23] MEDS: PEPCID 20 MG PO (08:05)
[2024-07-23] MEDS: NOVOLOG FLEXPEN-MODERATE RESISTANCE SC ×2 (08:05→13:28)
[2024-07-23 08:08] LABS: % Basophils 1.2 % (0-2); % Eosinophils 4.8 % (0-6); % Immature Granulocytes 0.4 % (0-0.5); % Lymphocytes 16.5 % (20.5-51.1); % Monocytes 10.5 % (1.7-9.3); % Neutrophils 66.6 % (42.2-75.2); Absolute Basophils 0.1 10^3/uL (0-0.2); Absolute Eosinophils 0.3 10^3/uL (0-0.7); Absolute Lymphocytes 1.1 10^3/uL (1.2-3.4); Absolute Monocytes 0.7 10^3/uL (0.1-0.6); Absolute Neutrophils 4.5 10^3/uL (1.4-6.5); Nucleated Red Blood Cells % 0 %
[2024-07-23] MEDS: STERILE WATER FOR INJECTION 10 ML IV ×2 (09:07→21:17)
[2024-07-23] MEDS: MAXIPIME 2000 MG IV ×2 (09:07→21:17)
[2024-07-23] MEDS: FLUSH (NSS) 1 FLUSH IV (09:10)
--- NOTE | 2024-07-23 09:21 | W.PN.HOSP.TC ---
Today's Communication/Plan
-
ICD today. Cont IV Abx.
Assessment / Plan
Assessment / Plan
Physical exam:
General: Well Developed, Well Nourished and No Apparent Distress
HEENT: Normocephalic, Atraumatic and Moist Mucous Membranes
Respiratory: Clear to Auscultation; Negative Wheezes, Rales or Rhonchi
Cardiac: Regular Rhythm and S1/S2. Left CW dry dressing
GI: Soft, Nontender and Nondistended
Musculoskeletal: No Clubbing, No Cyanosis and No Edema
Neuro: Awake, Alert and Oriented
Psych: Calm
A/P:
Infected ICD pacemaker pocket skin soft tissue infection:
Admitted to IVU
At risk of sepsis but no evidence of such at this point
07/17 chest x-ray: Left chest wall defibrillator with lead tip over the right ventricle.
There is an irregular curvilinear metallic density projecting over the left anterior chest wall, anterior to the left chest wall battery pack, new from chest radiograph of July 16 2024. ICD pocket was reportedly aspirated earlier today. In
discussion with Dr. Costa, there is dressing material at the site of aspiration, which likely has radiopaque markings. Continued follow-up may be helpful.
The lungs appear clear. No evidence for pulmonary edema or pleural effusion.
Given IV aztreonam and IV vancomycin in the ER
Continue IV cefepime (vancomycin stopped) for now
Proteus isolated from wound culture
Cardiology, ID consulted--> follow-up their recommendations
Discussed with [facility] cardiology and ID today on 07/23/2024
Pain control
Underwent hardware removal on 07/20
For planned ICD replacement today
Hypertension:
Continue home antihypertensives
Monitor blood pressure and adjust medications accordingly
Hyperlipidemia:
Continue home statin, pt takes at night, requesting time be changed
Ulcerative Colitis
pt takes Mesalamine 2.4 gms daily. Resumed
COPD
Pt on chronic Trelegy, requested be brought from home
Diabetes mellitus type 2:
Diabetic diet, pt is requesting change diet to regular
Insulin sliding scale
Continue Jardiance
Hold metformin in setting of infection
Hga1c 6.1%
glu 150-268
07/21 150
on moderate SSI, not on a standing dose
with wide swings in glu, will add low dose Lantus to try to attenuate variation
Chronic HFrEF:
Appears euvolemic on exam
Last echo on 12/29 EF 20 to 25% and stage II diastolic dysfunction
Continue oral diuretics
Continue beta-raulito
CAD:
Continue current anti-ischemic regimen
Continue cardiac monitoring
Hypothyroidism:
Continue levothyroxine home doses
Depression anxiety:
Continue antidepressant
CKD stage III:
Avoid nephrotoxic
Monitor renal function
GERD:
Continue H2 raulito
Obesity:
Lifestyle changes modifications warranted for weight loss
DVT prophylaxis:
Lovenox SQ
CODE STATUS:
Full code
Total time spent on today's encounter was 52 minutes which included time spent in counseling the patient/family regarding diagnosis and treatment plan as listed above, goals of care, and symptom management. Case was discussed with nursing staff,
specialists, and care coordinators/case management. All labs and imaging personally reviewed by me. Remainder the time spent in detailed review of previous records, lab data, imaging, and other medical provider documentation.
Anticipated Discharge: Within 24 hours
Subjective/Interval History
-
Date of Service: July 23, 2024
Patient seen after cardiac device implantation. No cp/sob/n/v.
Objective Data
-
Labs:
Laboratory Results
07/23/24
04:29
WBC 6.8
Hgb 8.9 L
Hct 27.8 L
Plt Count 143
Sodium 137
Potassium 3.9
Chloride 102
Carbon Dioxide 26
BUN 55 H
Creatinine 2.0 H
Glucose 132 H
Calcium 8.9
Vital Signs:
Vital Signs
Temp Pulse Resp BP Pulse Ox
98.7 F 77 16 106/62 96
07/23/24 08:00 07/23/24 08:04 07/23/24 08:00 07/23/24 08:04 07/23/24 08:00
I&O
07/22/24 07/23/24 07/24/24
06:59 06:59 06:59
Intake Total 1780 / 1780 540 / 540
Output Total 100 / 100 5 / 5
Balance 1680 / 1680 535 / 535
--- NOTE | 2024-07-23 10:52 | CM ---
Reviewed chart. Met with Mrs. Ro to review discharge plans. She states he is feeling well and waiting to go to the technical laboratory asst. She states prior to admission she resides with her spouse , daughter and granddaughter in a one story home with a ramp
to enter. She states prior to admission she was independent with ambulation and adls. She states she does not have any DME in the home. She states she has a prescription plan. Awaiting to hear if she will need home IV ABX. Telephone call to
[facility]. Will need to send a new referral with a prescription if she will need home IV ABX. Medial work-up in progress. The discharge plan is to return home with her spouse, daughter and granddaughter with [facility] if IV ABX
if indicated when medically stable.
--- NOTE | 2024-07-23 10:55 | PTCARENOTE ---
received patient this am. patient remains NPO for procedure today. monitor shows NSR with a first degree, VSS. LCW dsg. D/I, KATHY drain has no drainage. right midline flushes. CHG wipes completed. report given to semiconductor lab technician, to semiconductor lab technician via bed
accompanied by semiconductor lab technician RN's.
--- NOTE | 2024-07-23 13:14 | ITS.CL.ICD ---
Senior Painter - ICD
Implantable Cardioverter Defibrillator
Procedure Report:
Subcutaneous ICD Placement:
Ms. Ro is a very pleasant 74 yr old woman with history of ischemic cardiomyopathy and NSVT and HFrEF with LVEF of 20% and NYHA class III symptoms on maximally tolerated GDMT for years who had single chamber ICD that had recurrent infection and
was extracted on 07/20/24. She remains high risk of recurrent infections and is recommended a subcutaneous ICD.
Indications: Primary prevention for SCD with heart failure with reduced ejection fraction (NYHA calss III)
Date of the Procedure:�07/23/2024
Pre-Operative Diagnosis:�Ischemic cardiomyopathy
Post-Operative Diagnosis:�Ischemic cardiomyopathy
Procedure Performed:�SUBCUTANEOUS IMPLANTABLE DEFIBRILLATOR IMPLANTATION
Performing Physician:
Gokul Costa MD
Assistants:
EP staff
Anesthesia:
See anesthesia records
Detailed Description of the Procedure:
The patient was identified using hospital identification and informed consent obtained for the procedure. The risks were explained to the patient and his including, but not limited to: Bleeding, infection, arrhythmia, stroke,
vascular/cardiac/lung puncture, surgery, pacemaker dependency/device malfunction. All questions were answered.
The patient was brought to the electrophysiology laboratory in stable condition in fasting state. Continuous electrocardiographic and hemodynamic monitoring was initiated. The initial rhythm was normal sinus.
The dummy wire and the ICD generator was placed on the skin and positioned at the appropriate location under fluoroscopy. The locations and the incision lines were marked with skin marker.
The procedure site was meticulously prepared with surgical scrub and allowed to dry with no pooling. Sterile draping was applied to cover the procedure site. The image intensifier was draped with sterile bag and positioned over the patient. Left
arm was extended and the axillary fold to the right chest were prepped and draped in the usual fashion.�
Local anesthesia was administered subcutaneously using 1% lidocaine / bupivacaine at the anterior axillary line and the mid line at sub-xiphoid area. A small incision was made at the midline at the subxiphoid location along the skin lines. An
incision was made at the axillary location for the pocket creation for the device.�
The pocket was fashioned contiguous to the incision with bleeding control with Bovie cautry. A tunneling tool was used to tunnel a line from the midline to the axillary incision after administration of local anesthesia to the tunneling area. The
ICD lead was passed from the pocket to the midline incision. The lead was secured to the underlying fascia with a 0-silk suture. Again using the tunneling tool, the second tunneling was done from the midline incision to the cranially along the
sternum scraping it lightly. The ICD lead was placed in the tunnel and squeezed around to expel any air. The lead was secured using 2-0 Ethibond suture.�
The lead was attached to the ICD generator and the ICD was placed in the pocket. The pocket was irrigated thoroughly with antibiotics saline solution. The generator was secured to the underlying fascia with 2-0 Ethibond suture at two locations. The
pocket was irrigated again. The wound at midline and axillary locations were closed in 3 layers using 2-0, VLoc sutures and two layers of 4-0 V loc sutures. Steri-Strips and an Aquacel bandage were applied.
Post implantation test was performed using a 10J shock after adequate anesthesia. Shock impedance was 66 ohm.�
Procedure End:
The procedure was tolerated well. A pressure bandage was applied to the incision area to be removed in a day.�
The KATHY drain was removed and dressing was changed at the shoulder wound as well.
Estimated Blood loss:�
5-10 cc
Specimens Removed:�
No cultures and no specimens were obtained. No intraoperative pathology was identified.
Urine output:
None
Packs / Drains/ Tubes:
None
Instrument / Sponge Count Correct:
Yes
Complications of the Procedure:
None
Condition of Patient at Time of Transfer:
Hemodynamically stable with no neurological or vascular compromise.�
Device information:�
Generator:�[employer] MRI S-ICD;�
Model: A219; Serial # [id number]
DEFIB Lead:�
��� [employer] S-ICD subcutaneous electrode;
Model: 3501; Serial # [id number]
�
Therapy parameter settings:
����������� Shock zone:�
220 bpm - 80 J x 5
���
Conditional Shock Zone: ���
����������� 180 bpm with Detection enhancement: INSIGHT - 80 J X 5
�
Summary:
Successful implantation of subcutaneous ICD
Results/Recommendations:�
- Please follow up CXR�
- Transfer back to patient room
- Please discharge patient with adequate pain control�
Instructions to be given to patient:�
- Please follow up with [facility] at [address] [place] [address] ([phone]) to get your wound checked within 2 weeks of your discharge.�
- Do not wet incision site until after it is evaluated at cardiology clinic. No showers until then. Sponge baths are OK.�
- Allow 'steri strips' to fall off on their own�
- If you notice any fevers, shortness of breath, lightheadedness, chest pain, or worsening swelling in the wound site, please contact the arrhythmia clinic, contact your catalogue compiler, or present to the hospital for evaluation.�
Gokul Costa MD
Electrophysiology
--- NOTE | 2024-07-23 13:14 | PTCARENOTE ---
received patient from receiver/laborer, left upper chest wall dsg. D/I, left lateral flank pressure dsg. intact.monitor on, NSR, VSS. patient very sleepy but easily aroused. at bedside. EKG done.
[2024-07-23 13:25] LABS: Glucose - Point of Care 126 mg/dl (70-99)
[2024-07-23] MEDS: ANCEF 5 IV ×2 (15:45→23:10)
[2024-07-23] MEDS: FLUSH (NSS) 2 FLUSH IV (15:46)
--- NOTE | 2024-07-23 16:23 | PTCARENOTE ---
post ICD placement chest xray completed.
[2024-07-23] MEDS: NOVOLOG FLEXPEN-MODERATE RESISTANCE 3 UNITS SC (17:52)
[2024-07-23 17:53] LABS: Glucose - Point of Care 229 mg/dl (70-99)
[2024-07-23] MEDS: TYLENOL 650 MG PO ×2 (19:21→23:53)
[2024-07-23] MEDS: LIPITOR 80 MG PO (21:17)
[2024-07-23 22:22] LABS: Glucose - Point of Care 280 mg/dl (70-99)
--- NOTE | 2024-07-23 23:04 | PTCARENOTE ---
Pt rec'd at beginning of shift awake,alert in recliner chair. Assisted to bathroom to void then back to bed. Pt states 'I still feel a little out of it. It takes 24 hrs to get the anesthesia out of my system.' Sinus with first degree on telemetry.
Old pacer site with drsg, no drainage ecchymotic above drsg. Pressure drsg present left ant chest (site of new ICD). tender to touch. pt medicated for pain.
right midline flushed and patent. B/l groin drsg remain intact.
[2024-07-23] MEDS: LANTUS 0.1 UNITS SC (23:10)
[2024-07-24 02:02] VITALS: BMI 30.5
[2024-07-24 02:11] VITALS: BP 97/57
[2024-07-24 02:23] LABS: Hematocrit 26.1 % (37.0-47.0); Hemoglobin 8.6 g/dL (12.0-16.0); Mean Corpuscular Hgb 34.5 pg (27.0-31.0); Mean Corpuscular Volume 104.8 fL (81.0-99.0); Mean Platelet Volume 10.5 fL (7.4-10.4); Platelet Count 150 10^3/uL (130-400); Red Blood Cell Count 2.49 10^6/uL (4.20-5.40); Red Cell Dist. Width 14.3 % (11.5-14.5); White Blood Cell Count 8.2 10^3/uL (4.8-10.8)
[2024-07-24 02:42] LABS: Blood Urea Nitrogen 49 mg/dl (7-17); Calcium 9.1 mg/dl (8.4-10.2); Carbon Dioxide 23 mmol/L (22-30); Chloride 106 mmol/L (98-107); Estimated Creatinine Clearance 25 ml/min; Glucose 166 mg/dl (70-99); Potassium 3.9 mmol/L (3.5-5.1); Sodium 141 mmol/L (135-145); eGFR 27.54
--- NOTE | 2024-07-24 04:40 | PTCARENOTE ---
Pt awake just after 0200. Assisted to bathroom to void. pressure drsg remains in place to subcutaneous ICD site. no drainage or swelling noted.
am labs and vs completed. call latham placed within reach.
[2024-07-24] MEDS: SYNTHROID 175 MCG PO (05:54)
[2024-07-24 06:38] VITALS: BP 109/55
[2024-07-24 06:43] LABS: Glucose - Point of Care 146 mg/dl (70-99)
--- NOTE | 2024-07-24 07:59 | W.PN.CD ---
Today's Communication / Plan
-
- stable from cardiac stand point
- Switch Plavix to ASA at discharge
- Continue to hold Lasix, Farxiga and Hydralazine for now. Can restart as outpatient if needed.
- Follow up in 1-2 weeks at Cardiology
- Antibiotics duration as per ID
Impression / Plan
-
73-year-old woman with chronic heart failure status post single-chamber ICD 2002 ([employer], status post generator change in 2010 and secondary to change in November 2023 (Dr. Ro at [facility]), coronary disease status post PCI with CHERELLE to LAD in
February 2016, PCI to RCA with stent in December 2016, inflammatory bowel disease (ulcerative colitis), PMR, history of DVT after cholecystectomy, asthma, hypothyroidism, capsulitis, history of partial bowel resection with perforated diverticulitis in 2004,
initially pocket washout on 12/20/23 who presented with her pocket infection and pus coming from the pocket.
Pocket infection
-Infected in November and December s/p debridement in December but infection is back - latency of 6 months.
-Pus in the pocket - copious amount - aspirated 07/17/24 - grew Proteus - same organism isolated in December 2023
-s/p Hardware extraction on 07/20/24 - ICD and ICD generator removed
-ECHO 07/21/24: No sing of pericardial effusion
-s/p SubQ ICD placement 07/23/24
-Dressing changed.
-Stable for discharge from cardiac stand point.
Heart failure
-Primary prevention ICD in place - Sub Q ICD ([employer]) implanted on 07/23/24
-Echocardiogram - 07/17/24: LVEF 20%- moderate MR. No obvious vegetations.
-ECHO 12/21/23 - : LVEF 20%, moderate MR - RCA and Circumflex territory severe hypokinesis, LAD hypokinesis.
-ECHO 07/21/24: LVEF 20%, No sign of pericardial effusion
-EKG 07/24/24 - NSR 71 bpm; IVCD with QRS 140 ms
-Currently on Coreg, hydralazine
-Did not tolerate ACEI. Hydralazine on hold for now. Probably can resume in 3-4 days if hypertensive.
-hold sglt2i with HAMLET - recovering now. HAMLET was present pre-op and is improving now after extraction.
Coronary artery disease
-On Plavix, Coreg and Lipitor
-Hold Plavix for now. Will start aspirin while Plavix on hold.
-OK to resume Plavix at discharge and stop ASA.
DM
-Insulin for tighter glucose control at least while in patient
Acute kidney injury: Unclear etiology
-Improving now
-Holding Lasix, Hydralazine and Farxiga
Subjective:
She is feeling great today. No chest pain or shortness of breath.
Physical Exam
Vital Signs/Labs
Vital Signs
Temp Pulse Resp BP Pulse Ox
98.5 F 68 18 97/57 95
07/24/24 06:36 07/24/24 04:00 07/24/24 06:36 07/24/24 02:11 07/24/24 06:36
07/23/24 07/24/24 07/25/24
06:59 06:59 06:59
Actual Weight 74.5 kg 75.6 kg
07/24/24 02:08
07/24/24 02:08
Magnesium 2.4 mg/dl (1.6-2.3) H 07/21/24 05:02
Physical Exam
Constitutional: No acute distress and Comfortable
EENT: Anicteric and Moist mucous membranes
Cardiovascular: Rhythm & rate is regular, Pedal edema is absent and JVD pressure is normal
Respiratory: Respiratory effort normal, Lungs clear to auscul. and Crackles Absent
GI: Soft, Distention absent, Non tender and Normal bowel sounds
Neuro/Psych: Alert, Oriented, AO x 3 and Motor deficits absent
Other: Cardiac Device Site (The shoulder dressing openned and redressed. The subQ ICD is under pressure dressing and patient will remove the dressing in a day. )
Data Reviewed
-
Date of Service: July 24, 2024
Medical Decision Making: Reviewed Test Results, Independent Historian Assessment, Test Interpretation and Review of Case with other Provider
EKG: Tracing Personally Visualized and interpreted
Echo: Report Reviewed by me
X-Ray/CT/US/MRI/NUC/PET: Image Personally Visualized and interpreted
Labs: Labs Reviewed by me
Old Records: Reviewed
[2024-07-24] MEDS: CYMBALTA DELAYED RELEASE 30 MG PO (08:25)
[2024-07-24] MEDS: LOW STRENGTH ASPIRIN 81 MG PO (08:25)
[2024-07-24] MEDS: COREG 12.5 MG PO (08:25)
[2024-07-24] MEDS: ASACOL, DELZICOL DR 2400 MG PO (08:25)
[2024-07-24] MEDS: STERILE WATER FOR INJECTION 10 ML IV (08:26)
[2024-07-24] MEDS: MAXIPIME 2000 MG IV (08:26)
[2024-07-24] MEDS: NOVOLOG FLEXPEN-MODERATE RESISTANCE SC (08:57)
--- NOTE | 2024-07-24 10:56 | W.PN.HOSP.TC ---
Today's Communication/Plan
-
Discharge planning today
Assessment / Plan
Assessment / Plan
Physical exam:
General: Well Developed, Well Nourished and No Apparent Distress
HEENT: Normocephalic, Atraumatic and Moist Mucous Membranes
Respiratory: Clear to Auscultation; Negative Wheezes, Rales or Rhonchi
Cardiac: Regular Rhythm and S1/S2. Left CW dry dressing
GI: Soft, Nontender and Nondistended
Musculoskeletal: No Clubbing, No Cyanosis and No Edema
Neuro: Awake, Alert and Oriented
Psych: Calm
A/P:
Infected ICD pacemaker pocket skin soft tissue infection:
ID recommend change to oral amoxicillin
ID cleared her for discharge
Prior to today:
Admitted to IVU
At risk of sepsis but no evidence of such at this point
07/17 chest x-ray: Left chest wall defibrillator with lead tip over the right ventricle.
There is an irregular curvilinear metallic density projecting over the left anterior chest wall, anterior to the left chest wall battery pack, new from chest radiograph of July 16 2024. ICD pocket was reportedly aspirated earlier today. In
discussion with Dr. Costa, there is dressing material at the site of aspiration, which likely has radiopaque markings. Continued follow-up may be helpful.
The lungs appear clear. No evidence for pulmonary edema or pleural effusion.
Given IV aztreonam and IV vancomycin in the ER
Continue IV cefepime (vancomycin stopped) for now
Proteus isolated from wound culture
Cardiology, ID consulted--> follow-up their recommendations
Discussed with [facility] cardiology and ID today on 07/25/2024 and she is cleared for discharge. Recommend to continue hold Farxiga, furosemide, and hydralazine as outpatient and reevaluate over the next 2 weeks as outpatient. Also change Plavix to
aspirin.
Status post subcutaneous ICD placement on 07/23
Prior to today:
Pain control
Underwent hardware removal on 07/20
For planned ICD replacement today
Hypertension:
Continue home antihypertensives
Monitor blood pressure and adjust medications accordingly
Hyperlipidemia:
Continue home statin, pt takes at night, requesting time be changed
Ulcerative Colitis
pt takes Mesalamine 2.4 gms daily. Resumed
COPD
Pt on chronic Trelegy, requested be brought from home
Diabetes mellitus type 2:
Diabetic diet, pt is requesting change diet to regular
Insulin sliding scale
Continue Jardiance
Hold metformin in setting of infection
Hga1c 6.1%
glu 150-268
07/21 150
on moderate SSI, not on a standing dose
with wide swings in glu, will add low dose Lantus to try to attenuate variation
Chronic HFrEF:
Appears euvolemic on exam
Last echo on 12/29 EF 20 to 25% and stage II diastolic dysfunction
Continue oral diuretics
Continue beta-raulito
CAD:
Continue current anti-ischemic regimen
Continue cardiac monitoring
Hypothyroidism:
Continue levothyroxine home doses
Depression anxiety:
Continue antidepressant
CKD stage III:
Avoid nephrotoxic
Monitor renal function
GERD:
Continue H2 raulito
Obesity:
Lifestyle changes modifications warranted for weight loss
DVT prophylaxis:
Lovenox SQ
CODE STATUS:
Full code
Anticipated Discharge: Today
Subjective/Interval History
-
Date of Service: July 24, 2024
Feels well today. No new complaints. Blood pressure on the low side
Objective Data
-
Labs:
Laboratory Results
07/24/24
02:08
WBC 8.2
Hgb 8.6 L
Hct 26.1 L
Plt Count 150
Sodium 141
Potassium 3.9
Chloride 106
Carbon Dioxide 23
BUN 49 H
Creatinine 1.9 H
Glucose 166 H
Calcium 9.1
Vital Signs:
Vital Signs
Temp Pulse Resp BP Pulse Ox
98.5 F 71 18 109/55 95
07/24/24 06:36 07/24/24 09:00 07/24/24 06:36 07/24/24 06:38 07/24/24 06:36
I&O
07/23/24 07/24/24 07/25/24
06:59 06:59 06:59
Intake Total 540 / 540 0 / 0
Output Total 5 / 5 400 / 400
Balance 535 / 535 -400 / -400
[2024-07-24 11:40] VITALS: BP 94/54
--- NOTE | 2024-07-24 12:21 | CM ---
Addendum entered by Yudith Churchill 07/24/24 14:42:
Received consult for VNA Services. Met with Mrs. Ro to review VNA Services. She states she does not feel VNA services are needed. She is declining VNA Services at this time. Updated attending physician. Medical work-up in progress. The
discharge plan is to return home with her family when medically stable.
Original Note:
Reviewed chart. Met with Jayjay Casas to review discharge plans. She states she is feeling well and is hoping for discharge soon. Reached out to Infectious Disease to see if she will need IV ABX at home. He states she will go home on oral ABX.
Prior to admission she resides with her spouse, daughter and granddaughter in a one story home with a ramp to enter. Prior to admission she was independent with ambulation and adls. She does not have any DME in the home. She has a prescription
plan. Medical work-up in progress. The discharge plan is to return home with her family when medically stable.
[2024-07-24 12:32] LABS: Glucose - Point of Care 217 mg/dl (70-99)
[2024-07-24] MEDS: NOVOLOG FLEXPEN-MODERATE RESISTANCE 3 UNITS SC (12:45)
--- NOTE | 2024-07-24 13:26 | W.PN.ID1 ---
Addendum entered and electronically signed by Salo Solis, DO 07/24/24 13:33:
Est. CrCl ~ 25.
D/C on amoxcillin 500 mg PO BID for 14 days.
Original Note:
Date of Service
Date of Service: July 24, 2024
Today's Communication
Transition to oral amoxicillin.
Assessment / Plan
Relapsed pacer pocket infection/infected cardiac device
-Recent hx of ICD pocket site infection with Proteus (12/2023)
-s/p ICD generator extraction, pocket I+D, placement of same generator cleaned with betadine at separate site, leads retained,
-s/p 4 weeks ceftriaxone.
- 07/20/24 s/p total extraction of ICD
- 07/23/24 ICD replacement
Normal white count with left shift
Renal insufficiency
Lactic acidosis
Diabetes mellitus type 2
Hypertension
CAD status post stent
Ischemic cardiomyopathy status post AICD placement (2002)
Ulcerative colitis on mesalamine
Hypothyroidism
Asthma
PMR
Herniated disc
Depression/anxiety
Recommendations:
Pocket aspiration culture: Proteus (as previous).
OR pocket cx's neg to date.
Blood cx neg to date.
Sensitivities reviewed. Transition to oral amoxicillin 500 mg 3 times daily for an additional 14 days of therapy.
����������������������������������������������������������
Chief Complaint
-: Other (Pacer pocket infection)
Subjective / Review of Systems
Review of Systems: No Fever and No Chills
Vital Signs / Physical Exam
Vital Signs
Vital Signs
Temp Pulse Resp BP Pulse Ox
98.1 F 68 18 94/54 94
07/24/24 11:36 07/24/24 12:00 07/24/24 11:36 07/24/24 11:40 07/24/24 11:40
Physical Exam
Constitutional: No Acute Distress and Comfortable
Eyes: Sclera Anicteric
Cardiovascular: Other (left CW dressing dry)
Pulmonary: Clear and Non Labored
Gastrointestinal: Soft, Non Tender and Non Distended
Extremities: Negative Edema
Neurological: AO x 3
Objective Data
Lab Data
Lab Results
07/24/24 02:08
07/24/24 02:08
Estimated Creat Clear 25 ml/min 07/24/24 02:08
Lactic Acid 0.9 mmol/L (0.7-2.0) 07/16/24 06:28
Total Bilirubin 0.5 mg/dl (0.2-1.3) 07/15/24 15:10
AST 26 U/L (14-36) 07/15/24 15:10
ALT 14 U/L (0-35) 07/15/24 15:10
Alkaline Phosphatase 100 U/L (38-126) 07/15/24 15:10
Most recent labs reviewed.
Micro Results:
07/20/24 14:54 Anaerobic Culture - Preliminary
Chest - Left NO ANAEROBES ISOLATED
07/20/24 14:54 Wound Culture - Preliminary
Chest - Left No growth
Gram Stain - Preliminary
07/17/24 09:38 Wound Culture - Final
Chest - Left Proteus mirabilis
Gram Stain - Final
07/16/24 01:23 Blood Culture - Final
Blood/Venous No Growth - Final Report
07/15/24 17:29 Blood Culture - Final
Blood/Venous No Growth - Final Report
07/16/24 09:11 MRSA Screen - Final
Nose No Methicillin Resistant Staphylococcus aureus isolated.
Wound/abscess/other Cult Final 07/22/24-858
Few Proteus mirabilis
Organism 1 Proteus mirabilis
1. Proteus mirabilis
M.I.C. RX
--------- ---
Amoxicillin/Potas. Clavulanate <=8/4 S
Ampicillin <=8 S
Ampicillin/Sulbactam <=4/2 S
Aztreonam <=4 S
Cefazolin 4 I
Cefepime <=2 S
Ceftazidime <=1 S
Ceftriaxone <=1 S
Ertapenem <=0.5 S
Ciprofloxacin <=0.25 S
Gentamicin <=2 S
Meropenem <=1 S
Piperacillin/Tazobactam <=8 S
Tetracycline >8 R
Tobramycin <=2 S
Trimethoprim/Sulfamethoxazole <=2/38 S
Care Review
Plan reviewed with: Physician (Cardiology; Hospitalist)
--- NOTE | 2024-07-24 14:16 | W.DCSUMMARY ---
Discharge Summary
Discharge Data
Date of Admission: 07/15/24
Date of Discharge: 07/24/24
-
Pending Results: No
Hospital Course
Patient 74 years old female with with history of hypertension, hypothyroidism, diabetes mellitus, CAD, ischemic cardiomyopathy with AICD, ulcerative colitis, PMR, depression anxiety, prior history of ICD pocket infection in the past, presented to
the hospital with erythema around the AICD pocket that failed outpatient treatment. Patient was started on IV antibiotics. EP cardiology and ID were consulted. Her blood cultures remain sterile. Her wound culture grew Proteus mirabilis. She had
ICD hardware extraction on 07/20 and echocardiogram with no signs of pericardial effusion. She had subcutaneous ICD placement on 07/23. Patient remained afebrile and did well rest of the hospital stay. She was cleared by cardiology and ID for
discharge. ID recommended to switch IV antibiotics to oral for 14 more days. Cardiology recommended to continue holding Lasix Farxiga and hydralazine and restart as outpatient if needed once blood pressure improved and switch Plavix to aspirin
upon discharge. She worked with PT OT during this hospital stay. Otherwise, patient hemodynamically stable and she is going to be discharged in stable condition today.
Discharge duration: 39 minutes
Discharge Plan
-
Patient Disposition: Home (Routine Discharge)
Discharge Diagnosis/Procedures: Relapse pacer pocket infection, device and lead extraction (07/20), status post subcutaneous implantable cardiac defibrillator implant (07/23), hypotension.
Condition: Good
Diet: Low Cholesterol
Activity: Other activity
Additional Activity: As instructed by cardiology.
Bathing Restrictions: OK to Shower
Blood Work: Please PCP to order CBC, BMP within 1 week
Stand Alone Forms: [facility] Inst - Implanted Device
Referrals:
Ashley Monsalve MD [Family Provider] - in less than 1 week
Gokul Costa MD [Active] - in two to four weeks
Prescriptions:
New
amoxicillin 500 mg Capsule
500 mg PO Q12H 14 Days Qty: 28 0RF
aspirin 81 mg Tablet,Chewable
81 mg PO DAILY 30 Days Qty: 30 0RF
Continued
levothyroxine [Synthroid] 175 mcg Tablet
175 mcg PO MOTUWETHFR@0700
atorvastatin 80 mg Tablet
80 mg PO QPM
carvedilol [Coreg] 12.5 mg Tablet
12.5 mg PO BID
famotidine 20 mg Tablet
20 mg PO DAILY
metformin 1,000 mg Tablet
1,000 mg PO BID
duloxetine 30 mg Capsule,Delayed Release(Dr/Ec)
30 mg PO DAILY
therapeutic multivitamin Tablet
1 tab PO DAILY
Visbiome 112.5 billion cell Capsule
1 cap PO DAILY
Trelegy Hfa
1 puff inhalation R DAILY
Patient Comments:
07/15/24- no ecw records no pharmacy records
mesalamine [Lialda] 1.2 gram Tablet,Delayed Release (Dr/Ec)
2.4 g PO DAILY
Held
hydralazine 25 mg Tablet
25 mg PO TID
Hold Instructions: Resume on 08/07/24.
Jardiance 25 mg Tablet
25 mg PO DAILY
Hold Instructions: Resume on 08/07/24.
furosemide [Lasix] 20 mg Tablet
40 mg PO DAILY
Hold Instructions: Resume on 08/07/24.
Discontinued
clopidogrel [Plavix] 75 mg Tablet
75 mg PO DAILY
clindamycin HCl 300 mg Capsule
300 mg PO BID
doxycycline hyclate 100 mg Tablet,Delayed Release (Dr/Ec)
100 mg PO BID
Discharge Orders:
Discharge Patient (As Directed); Ordered 07/24/24
Ordered By: Chris Arrieta
Care Plan Goals
Care Plan Goals:
Problem: Readiness for enhanced knowledge related to diagnosis and treatment plan
Goal: Understand your diagnosis and treatment plan needs, including medications if applicable.
Instructions: Know your diagnosis, underlying causes and treatment plan options, including medications if applicable. Consult with your health care team to learn about your diagnosis and treatment plan, including medications if applicable.
Discharge Date and Time
Discharge Date/Time: 07/24/24 16:28
Print Language: GREENLANDIC
[2024-07-24] MEDS: AMOXIL 500 MG PO (14:46)
[2024-07-24 15:09] VITALS: BP 114/96
--- NOTE | 2024-07-24 15:26 | PTCARENOTE ---
Patient discharged to home. Mid line removed. Discharge teaching completed, patient verbalized understanding. Patient escorted to main lobby in a wheelchair, driving her home.
== END 2024-07-24 16:28 | disposition home or self-care (01) | DRG 277 ==
LOC: IVU 17:10
PROVIDERS: Internal Medicine; Nurse Practitioner; Registered Nurse; ADMITTING PHYSICIAN Hospitalist; CONSULT PHYSICIAN Internal Medicine Cardiovascular Disease; EMERGENCY PHYSICIAN Emergency Medicine; FAMILY PHYSICIAN Student in an Organized Health Care Education/Training Program; OTHER PHYSICIAN Internal Medicine Infectious Disease
PROC: 02JY3ZZ Inspection of Great Vessel, Percutaneous Approach (ICD-10-PCS; 2024-07-20)
PROC: 4B02XTZ Measurement of Cardiac Defibrillator, External Approach (ICD-10-PCS; 2024-07-20)
PROC: 0JPT0PZ Removal of Cardiac Rhythm Related Device from Trunk Subcutaneous Tissue and Fascia, Open Approach (ICD-10-PCS; 2024-07-20)
PROC: B5181ZZ Fluoroscopy of Superior Vena Cava using Low Osmolar Contrast (ICD-10-PCS; 2024-07-20)
PROC: 02PA3MZ Removal of Cardiac Lead from Heart, Percutaneous Approach (ICD-10-PCS; 2024-07-20)
PROC: B24BZZ4 Ultrasonography of Heart with Aorta, Transesophageal (ICD-10-PCS; 2024-07-20)
PROC: 02H Heart and Great Vessels, Insertion (ICD-10-PCS; 2024-07-23)
PROC: 0JH608Z Insertion of Defibrillator Generator into Chest Subcutaneous Tissue and Fascia, Open Approach (ICD-10-PCS; 2024-07-23)
DX: T82.7XXA Infection and inflammatory reaction due to other cardiac and vascular devices, implants and grafts, initial encounter (principal); E87.20 Acidosis, unspecified; I13.0 Hypertensive heart and chronic kidney disease with heart failure and stage 1 through stage 4 chronic kidney disease, or unspecified chronic kidney disease; I50.22 Chronic systolic (congestive) heart failure; K51.90 Ulcerative colitis, unspecified, without complications; N17.9 Acute kidney failure, unspecified; E03.9 Hypothyroidism, unspecified; L08.89 Other specified local infections of the skin and subcutaneous tissue; E78.00 Pure hypercholesterolemia, unspecified; I25.10 Atherosclerotic heart disease of native coronary artery without angina pectoris; E11.22 Type 2 diabetes mellitus with diabetic chronic kidney disease; N18.30 Chronic kidney disease, stage 3 unspecified; J45.909 Unspecified asthma, uncomplicated; G89.29 Other chronic pain; M54.9 Dorsalgia, unspecified; F32.A Depression, unspecified; F41.9 Anxiety disorder, unspecified; K21.9 Gastro-esophageal reflux disease without esophagitis; J44.9 Chronic obstructive pulmonary disease, unspecified; I25.5 Ischemic cardiomyopathy; M35.3 Polymyalgia rheumatica; E66.9 Obesity, unspecified; B96.4 Proteus (mirabilis) (morganii) as the cause of diseases classified elsewhere; Y83.8 Other surgical procedures as the cause of abnormal reaction of the patient, or of later complication, without mention of misadventure at the time of the procedure; Y83.1 Surgical operation with implant of artificial internal device as the cause of abnormal reaction of the patient, or of later complication, without mention of misadventure at the time of the procedure; Y92.9 Unspecified place or not applicable; Z96.611 Presence of right artificial shoulder joint; Z96.652 Presence of left artificial knee joint; I25.2 Old myocardial infarction; Z90.49 Acquired absence of other specified parts of digestive tract; Z88.2 Allergy status to sulfonamides; Z88.1 Allergy status to other antibiotic agents; Z79.02 Long term (current) use of antithrombotics/antiplatelets; Z79.890 Hormone replacement therapy; Z79.84 Long term (current) use of oral hypoglycemic drugs; Z68.30 Body mass index [BMI] 30.0-30.9, adult; Z11.52 Encounter for screening for COVID-19; Z86.718 Personal history of other venous thrombosis and embolism; Z95.810 Presence of automatic (implantable) cardiac defibrillator; Z95.5 Presence of coronary angioplasty implant and graft; Z87.891 Personal history of nicotine dependence
CPT/HCPCS: 93308; 33270; 71045; 71046; 80048; 80053; 80202; 82962; 83036; 83605; 83735; 85025; 85027; 86850; 86900; 86901; 86920; 87040; 87070; 87075; 87077; 87186; 87205; 87811; 93005; 93306; 99285; C1722; C1896